=== PATIENT | male | born 1940 | race Caucasian/White ===

== ENCOUNTER 2019-11-04 07:55 | Inpatient (IN) ==
--- NOTE | 2019-10-11 16:02 | PAT Medication Instructions ---
Medication Instructions Date of Service October 11, 2019 Home Medications albuterol sulfate [Ventolin HFA] 2 puff INHALATION QID PRN atorvastatin 40 mg PO PM cyclobenzaprine 10 mg PO TID PRN fluticasone propion-salmeterol [Advair Diskus] 1 inh INHALATION BID hydrochlorothiazide 12.5 mg PO QAM montelukast [Singulair] 10 mg PO PM multivitamin 1 tab PO DAILY sertraline 100 mg PO QPM tamsulosin [Flomax] 0.4 cap PO QPM tolterodine [Detrol LA] 4 mg PO QPM aspirin 81 mg PO DAILY celecoxib [Celebrex] 200 mg PO QAM donepezil 5 mg PO QPM gabapentin 300 mg PO BID levothyroxine 175 mcg PO QAM lisinopril 5 mg PO QAM melatonin 5 mg PO HS omeprazole 40 mg PO QAM rizatriptan [Maxalt] 10 mg PO UD PRN sertraline 50 mg PO QPM ASK your surgeon for instructions celecoxib [Celebrex] 200 mg PO QAM ASK your prescriber and surgeon aspirin 81 mg PO DAILY DO NOT take the morning of surgery cyclobenzaprine 10 mg PO TID PRN hydrochlorothiazide 12.5 mg PO QAM multivitamin 1 tab PO DAILY lisinopril 5 mg PO QAM Take morning of surgery With a small sip of water, OTHERWISE NOTHING TO EAT OR DRINK AFTER MIDNIGHT: albuterol sulfate [Ventolin HFA] 2 puff INHALATION QID PRN (use if needed; please bring with you to hospital day of surgery if possible) fluticasone propion-salmeterol [Advair Diskus] 1 inh INHALATION BID gabapentin 300 mg PO BID levothyroxine 175 mcg PO QAM omeprazole 40 mg PO QAM rizatriptan [Maxalt] 10 mg PO UD PRN (if needed) Take evening before surgery albuterol sulfate [Ventolin HFA] 2 puff INHALATION QID PRN (if needed) atorvastatin 40 mg PO PM cyclobenzaprine 10 mg PO TID PRN (if needed) fluticasone propion-salmeterol [Advair Diskus] 1 inh INHALATION BID montelukast [Singulair] 10 mg PO PM sertraline 100 mg PO QPM tamsulosin [Flomax] 0.4 cap PO QPM tolterodine [Detrol LA] 4 mg PO QPM donepezil 5 mg PO QPM gabapentin 300 mg PO BID melatonin 5 mg PO HS rizatriptan [Maxalt] 10 mg PO UD PRN (if needed) sertraline 50 mg PO QPM Other Notes If you have any questions please call us at [phone] or [phone] or [phone] or [phone]
--- NOTE | 2019-10-12 15:32 | Anesthesiology Consultation ---
Date of Service October 12, 2019 Assessment & Plan (1) Encounter for pre-operative examination: Chart Review Chart Review: Pending: Refer to Additional Notes / Consult section (pending cardiac clearance and preop Covid testing ) and Patient seen in Pre Admission Testing Surgeon's office informed of abnormal urine Awaiting cardiac clearance- scheduled 10/18 (will need to await cardio recommendations on patient's episode of chest pain and hx of AAA). - Check BSG AM DOS Per PAT appt 10/12/19, pt resides in [facility]. Wears mask in public. Does grocery shop in [facility]. Educated patient to follow up with surgeon's office regarding Covid testing. Educated on importance of self quarantining, social distancing and wearing mask in public both for the patient and household contacts. Teaching & Discussion Pre-Anesthesia Teaching/Discussion Notes: Instructed NPO after midnight before surgery,except medications with 15 cc of water. Medication instructions provided according to the PAT guidelines. History Surgery Operation Date: 11/04/19 09:20 Proposed Procedures p L3-S1 Decompression Fusion, Spinal Cord Monitoring - Salvador Duckworth, Height/Weight Height: 5 ft 11 in Weight: 119.6 kg Allergies Allergy/AdvReac Type Severity Reaction Status Date / Time tramadol AdvReac Intermediate double Verified 10/08/19 13:46 vision Medications Home Medications Medication Instructions Recorded Confirmed Last Taken albuterol sulfate [Ventolin HFA] 2 puff INHALATION QID PRN 02/23/18 10/08/19 03/07/18 atorvastatin 40 mg PO PM 02/23/18 10/08/19 03/08/18 19:00 cyclobenzaprine 10 mg PO TID PRN 02/23/18 10/08/19 Unknown fluticasone propion-salmeterol 1 inh INHALATION BID 02/23/18 10/08/19 03/07/18 [Advair Diskus] hydrochlorothiazide 12.5 mg PO QAM 02/23/18 10/08/19 03/08/18 17:00 montelukast [Singulair] 10 mg PO PM 02/23/18 10/08/19 03/08/18 17:00 multivitamin 1 tab PO DAILY 02/23/18 03/09/18 03/08/18 17:00 sertraline 100 mg PO QPM 02/23/18 10/08/19 03/08/18 19:00 tamsulosin [Flomax] 0.4 cap PO QPM 02/23/18 10/08/19 03/08/18 17:00 tolterodine [Detrol LA] 4 mg PO QPM 02/23/18 10/08/19 03/08/18 19:00 aspirin 81 mg PO DAILY 10/08/19 10/08/19 Unknown celecoxib [Celebrex] 200 mg PO QAM 10/08/19 10/08/19 Unknown donepezil 5 mg PO QPM 10/08/19 10/08/19 Unknown gabapentin 300 mg PO BID 10/08/19 10/08/19 Unknown levothyroxine 175 mcg PO QAM 10/08/19 10/08/19 Unknown lisinopril 5 mg PO QAM 10/08/19 10/08/19 Unknown melatonin 5 mg PO HS 10/08/19 10/08/19 Unknown omeprazole 40 mg PO QAM 10/08/19 10/08/19 Unknown rizatriptan [Maxalt] 10 mg PO UD PRN 10/08/19 10/08/19 Unknown sertraline 50 mg PO QPM 10/08/19 10/08/19 Unknown Past Medical History Medical History (Updated 10/12/19 @ 16:14 by Princess Adam PA-C) AAA (abdominal aortic aneurysm) LAST CHECKED 2 YEARS AGO Allergic rhinitis Anxiety and depression Asthma Well controlled and stable BPH (benign prostatic hyperplasia) Does have to self cath at times Chronic back pain Diabetes mellitus, type II Diet controlled Hearing deficit History of kidney stones HLD (hyperlipidemia) HTN (hypertension) Hypothyroidism Migraine Non-occlusive coronary artery disease No stents Obesity MARA (obstructive sleep apnea) DOES NOT USE DEVICE Osteoarthritis Prostate cancer 2000 - seed placement, radiation Exercise / Class Metabolic Activity III < 4 Walking/Shop/Light housework (mild SOB but no chest pain with flat surface ambulation ) Past Family History Family History (Updated 03/09/18 @ 12:48 by Erin Bernal PA-C) Grandmother (Paternal) Family history of diabetes mellitus Other Coronary heart disease Past Surgical History Surgical History (Updated 10/12/19 @ 16:17 by Princess Adam PA-C) History of anesthesia reaction HEADACHE - cleared up after 30 minutes History of appendectomy History of arthroscopic knee surgery History of cardiac cath 11/2017 - mild luminal irregularities of LAD & L Cx, EF: 60% - [facility] [id number] [facility] History of colonoscopy History of inguinal hernia repair History of tooth extraction History of total hip arthroplasty LEFT/RT Past Anesthesia History No Hx of Anesthesia Complications (with exception with spinal headache with hip replacement- one episode ) and No Family Hx of Anesthesia Complications History of PONV No Hx of Motion Sickness and History of PONV (mild GI upset ) Social History Smoking Status: Never smoker Do You Dip or Chew Tobacco: No Hx Alcohol Use: Yes Alcohol type: beer alcohol intake frequency: holidays/special occasions only Hx Substance Use: No substance use type: does not use Review of Systems Chest pain - one episode - last week. Last minutes. Located to left side. No radiation. No associated nausea. Mild SOB (chronic). Seeing cardio prior to surgery Occ reflux- Omeprazole causes GI upset. Chronic wheezing. Patient denies shortness of breath at rest, cough, palpitations. No hx of seizures, stroke, ID. No hx of blood clots or blood transfusions Physical Exam Vital Signs VITALS BP 110/73 P 69 TEMP 98.1 SP02 95% RESP 16 Constitutional + obese; no acute distress ENMT Mouth: no TMJ clicking Thyromental Distance: > or= 3.5 Finger Breadths (4.0) Mallampati Class: III Capped top front teeth Missing molars Capped to molar Neck + limited neck extension (significant ) Respiratory normal respiratory effort; no respiratory distress Auscultation: lungs clear to auscultation bilaterally; no wheezes Cardiovascular Rate/Rhythm: regular rate and regular rhythm Heart Sounds: no murmur Vessels: no carotid bruit Heart sounds diminished throughout Musculoskeletal Spine: no pain with cervical ROM Neurologic moves all extremities Psychiatric Orientation: alert Testing Laboratory Results 10/12/19 16:04 10/12/19 16:04 PT 10.5 Seconds (9.0-12.0) 10/12/19 16:04 INR 1.0 (0.9-1.1) 10/12/19 16:04 APTT 26.5 Seconds (21.0-31.0) 10/12/19 16:04 Hemoglobin A1c 6.7 % (4.5-5.6) H 10/12/19 16:04 Urine Color Dark Yellow 10/12/19 16:04 Urine Appearance Cloudy (Clear) A 10/12/19 16:04 Urine pH 5.0 (4.5-7.5) 10/12/19 16:04 Ur Specific [place] 1.025 (1.000-1.030) 10/12/19 16:04 Urine Protein Trace (Negative) H 10/12/19 16:04 Urine Glucose (UA) Negative (Negative) 10/12/19 16:04 Urine Ketones Trace (Negative) H 10/12/19 16:04 Urine Nitrite Positive (Negative) A 10/12/19 16:04 Ur Leukocyte Esterase 2+ (Negative) H 10/12/19 16:04 Urine WBC (Auto) >30 /hpf (0-5) H 10/12/19 16:04 Urine RBC (Auto) 0-4 /hpf (0-4) 10/12/19 16:04 U Hyaline Cast (Auto) 5-10 /lpf (0-5) H 10/12/19 16:04 U Epithel Cells (Auto) 5-10 /lpf (0-5) H 10/12/19 16:04 Urine Bacteria (Auto) 4+ (Negative) H 10/12/19 16:04 Blood Type A Negative 10/12/19 16:04 Antibody Screen NEGATIVE 10/12/19 16:04 10/12/19 16:04 Urine Culture - Preliminary Urine,Clean Catch Escherichia coli Electrocardiogram Date: 10/12/19 SR with 1st degree AVB at 72 bpm. Left axis deviation. Chest X-Ray Date: 10/12/19 Findings: + NAD Echocardiogram Date: 07/27/15 EF: 50-55% LV Function: normal Impaired relaxation (grade I) diastolic dysfunction. There is trivial to mild tricuspid regurgitation. Moderately dilated ascending aorta (4.7cm). Mild aortic root dilation (3.9cm). Borderline global hypokinesis of the left ventricle. Right and left atrium mildly dilated. Trace mitral regurgitation. Stress Test Date: 07/27/15 Type: nuclear Resting EF: >70% Stress ECG changes are negative for ischemia by EKG criteria. Patient did experience SOB. Normal myocardial perfusion with diaphragmatic attenuation artifact. LV systolic function is hyperdynamic. There is a low risk/extent of ischemia.
[2019-10-12 16:28] LABS: Basophils # (auto) 0.04 K/uL (0-0.2); Basophils % (auto) 0.5 %; Eosinophils # (auto) 0.57 K/uL (0-0.5); Hematocrit (blood only) 40.6 % (42-52); Hemoglobin 13.5 g/dL (14.0-18.0); Immature Granulocytes # (auto) 0.02 K/uL (0.00-0.02); Immature Granulocytes % (auto) 0.2 %; Lymphocytes # (auto) 1.49 K/uL (1.2-3.4); Lymphocytes % (auto) 18.3 %; Mean Corpuscular Hemoglobin 29.6 pg (25-34); Mean Corpuscular Hgb Conc 33.3 g/dL (32-36); Mean Platelet Volume 8.9 fL (7.4-10.4); Monocytes # (auto) 0.89 K/uL (0.11-0.59); Monocytes % (auto) 10.9 %; Neutrophils # (auto) 5.12 K/uL (1.4-6.5); Neutrophils % (auto) 63.1 %; Platelet Count 212 K/uL (130-400); RDW Coefficient of Variation 14.5 % (11.5-14.5); RDW Standard Deviation 47.4 fL (36.4-46.3); Red Blood Count 4.56 M/uL (4.7-6.1); White Blood Count 8.13 K/uL (4.8-10.8)
[2019-10-12 16:34] LABS: Appearance Urine Cloudy (Clear); Bacteria Urine Automated 4+ (Negative); Bilirubin Urine Negative (Negative); Blood Urine 1+ (Negative); Color Urine Dark Yellow; Glucose Urine UA Negative (Negative); Ketones Urine Trace (Negative); Leukocyte Esterase Urine 2+ (Negative); Nitrite Urine Positive (Negative); Protein Urine Trace (Negative); Specific Gravity Urine 1.025 (1.000-1.030); Urobilinogen Urine Negative (Negative); WBC Urine Automated >30 /hpf (0-5)
[2019-10-12 16:35] LABS: BUN Creatinine Ratio 21.3 (10-20); Calcium 9.6 mg/dl (8.5-10.1); Est GFR (African American) 72.3; Est GFR (Non-African American) 62.4; Potassium 4.2 mmol/L (3.5-5.1)
[2019-10-12 16:39] LABS: Partial Thromboplastin Ratio 0.9; Partial Thromboplastin Time 26.5 Seconds (21.0-31.0); Prothrombin Time 10.5 Seconds (9.0-12.0)
--- NOTE | 2019-10-12 16:42 | XRay Report ---
TWO VIEW CHEST CLINICAL HISTORY: Preoperative examination. FINDINGS: PA and lateral chest radiographs are compared to study dated 02/25/2018. The heart is top no rmal for projection. The mediastinal contour is within normal limits. The lungs and pleural spaces a re clear. There is no pneumothorax. The skeletal structures are osteopenic. The bony thorax appears i ntact. Degenerative change is noted throughout the thoracic spine. IMPRESSION: No active disease in the chest. ACT 112: Negative or not required by law. Electronically signed by: Nader Omalley M.D. 10/12/2019 4:40 PM
[2019-10-12 17:23] LABS: Calcium Oxalate Crystals Urine Present (None Prsent)
[2019-10-12 17:25] LABS: RBC Urine Automated 0-4 /hpf (0-4)
[2019-10-13 05:52] LABS: Estimated Average Glucose 146 mg/dl; Hemoglobin A1C 6.7 % (4.5-5.6)
--- NOTE | 2019-10-13 12:06 | Electrocardiogram Report ---
Test Reason : Blood Pressure : / mmHG Vent. Rate : 072 BPM Atrial Rate : 072 BPM P-R Int : 212 ms QRS Dur : 096 ms QT Int : 436 ms P-R-T Axes : 075 -38 042 degrees QTc Int : 477 ms Sinus rhythm with 1st degree A-V block Left axis deviation Abnormal ECG When compared with ECG of 25-FEB-2018 13:18, No significant change was found Confirmed by Davion Waters ([id number]) on 10/13/2019 12:06:01 PM Referred By: Salvador Duckworth Confirmed By:Davion Waters
[~2019-11-04 07:55] MED LIST: ACETAMINOPHEN 500 MG TAB PO SCH; CEFAZOLIN 2000MG 2,000 MG/15 ML SYR IV SCH; CeleBREX 200 MG CAP PO SCH; GABAPENTIN 300 MG CAP PO SCH; LR 15ML/HR IV SCH
[2019-11-04] MEDS ORDERED: ATROPINE SULFATE 0.1 MG/ML 10ML SYR IV PRN (08:06)
[2019-11-04] MEDS ORDERED: fentaNYL citrate 100 MCG/2 ML VIAL IV PRN (08:06)
[2019-11-04] MEDS ORDERED: LABETALOL HCL IV 5 MG/ML 20ML IV PRN (08:06)
[2019-11-04] MEDS ORDERED: PHENYLEPHRINE 100MCG/ML 5ML SYR IV PRN (08:06)
[2019-11-04] MEDS ORDERED: ePHEDrine sulfate 50 MG/ML AMP IV PRN (08:06)
[2019-11-04] MEDS ORDERED: ONDANSETRON INJ 2 MG/ML 2 ML VIAL IV PRN ×2 (08:06→15:04)
[2019-11-04] MEDS ORDERED: HYDROmorphone INJ 1 MG/ML SYRINGE IV PRN ×2 (08:06→15:04)
[2019-11-04] MEDS ORDERED: MEPERIDINE HCL 25 MG/ML CARP/VIAL IV PRN (08:06)
[2019-11-04] MEDS ORDERED: fentaNYL citrate 100 MCG/2 ML VIAL ONE ×2 (09:21→12:34)
[2019-11-04] MEDS ORDERED: DEXAMETHASONE SOD INJ 4 MG/ML VIAL ONE (09:21)
[2019-11-04] MEDS ORDERED: ROCURONIUM BROMIDE 10 MG/ML 5 ML VIAL IV ONE ×3 (09:21→10:54)
[2019-11-04] MEDS ORDERED: LIDOCAINE HCL 2% 2 ML VIAL/AMP(20MG/ML) INFIL ONE (09:21)
[2019-11-04] MEDS ORDERED: ONDANSETRON INJ 2 MG/ML 2 ML VIAL ONE (09:21)
[2019-11-04] MEDS ORDERED: PROPOFOL IV EMULSION 10 MG/ML 20 ML VIAL IV ONE ×2 (09:21→13:24)
--- NOTE | 2019-11-04 09:49 | History & Physical Bridge Note ---
Date of Service November 04, 2019 History & Physical Bridge Note I have examined the patient, reviewed the History & Physical and in the interval since the performance of the History & Physical I have noted the following changes of clinical significance: no changes noted
--- NOTE | 2019-11-04 09:50 | History & Physical Report ---
Date of Service November 04, 2019 Assessment & Plan (1) Neurogenic claudication due to lumbar spinal stenosis: Admission and Anticipated Discharge Date Admission Date: L3-S1 decompression fusion History of Present Illness Chief Complaint: Back and bilateral leg pain Primary Care Provider: Patience Romero MD This is a 79-year-old male who presents with chronic persistent back and leg pain. After failing course of nonoperative care is here for surgical invention. Allergies Allergy/AdvReac Type Severity Reaction Status Date / Time tramadol AdvReac Intermediate double Verified 11/04/19 08:53 vision Home Medications Home Medications Medication Instructions Recorded Confirmed Type albuterol sulfate [Ventolin HFA] 2 puff INHALATION QID PRN 02/23/18 11/04/19 History atorvastatin 40 mg PO PM 02/23/18 11/04/19 History cyclobenzaprine 10 mg PO TID PRN 02/23/18 11/04/19 History fluticasone propion-salmeterol 1 inh INHALATION BID 02/23/18 11/04/19 History [Advair Diskus] hydrochlorothiazide 12.5 mg PO QAM 02/23/18 11/04/19 History montelukast [Singulair] 10 mg PO PM 02/23/18 11/04/19 History multivitamin 1 tab PO DAILY 02/23/18 11/04/19 History sertraline 100 mg PO QPM 02/23/18 11/04/19 History tamsulosin [Flomax] 0.4 cap PO QPM 02/23/18 11/04/19 History tolterodine [Detrol LA] 4 mg PO QPM 02/23/18 11/04/19 History aspirin 81 mg PO DAILY 10/08/19 11/04/19 History celecoxib [Celebrex] 200 mg PO QAM 10/08/19 11/04/19 History gabapentin 300 mg PO BID 10/08/19 11/04/19 History levothyroxine 175 mcg PO QAM 10/08/19 11/04/19 History lisinopril 5 mg PO QAM 10/08/19 11/04/19 History melatonin 5 mg PO HS 10/08/19 11/04/19 History omeprazole 40 mg PO QAM 10/08/19 11/04/19 History rizatriptan [Maxalt] 10 mg PO UD PRN 10/08/19 11/04/19 History sertraline 50 mg PO QPM 10/08/19 11/04/19 History Past Med/Surg History Medical History (Updated 11/04/19 @ 09:50 by Salvador Duckworth, DO) AAA (abdominal aortic aneurysm) LAST CHECKED 2 YEARS AGO Allergic rhinitis Anxiety and depression Asthma Well controlled and stable BPH (benign prostatic hyperplasia) Does have to self cath at times Chronic back pain Diabetes mellitus, type II Diet controlled Hearing deficit History of kidney stones HLD (hyperlipidemia) HTN (hypertension) Hypothyroidism Migraine Non-occlusive coronary artery disease No stents Obesity MARA (obstructive sleep apnea) DOES NOT USE DEVICE Osteoarthritis Prostate cancer 2000 - seed placement, radiation Surgical History History of anesthesia reaction HEADACHE - cleared up after 30 minutes History of appendectomy History of arthroscopic knee surgery History of cardiac cath 11/2017 - mild luminal irregularities of LAD & L Cx, EF: 60% - [facility] [id number] disease-[facility] History of colonoscopy History of inguinal hernia repair History of tooth extraction History of total hip arthroplasty LEFT/RT Family History (Updated 03/09/18 @ 12:48 by Erin Bernal PA-C) Grandmother (Paternal) Family history of diabetes mellitus Other Coronary heart disease Social History Smoking Status: Never smoker Second Hand Exposure: Yes; Do You Dip or Chew Tobacco: No; Tobacco Cessation Education Requested by Patient: No Hx Alcohol Use: Yes Alcohol type: beer Hx Substance Use: No Preferred Language: Brazilian Communication Ability: Effective Hand Candle Molder Required: No Beliefs That Will Affect Care: None marital status: Current Living Situation: Spouse Feels Safe at Home: Yes Safety Concerns: Feels Safe At This Time Physical Exam Physical Exam: Patient is alert and oriented neurologically intact. Heart regular rate and rhythm. Lungs clear to auscultation. Results & Data ([facility]) Vital Signs (Past 12 Hours) Vital Signs Temp Pulse Resp BP Pulse Ox 11/04/19 09:08 36.7 C 66 18 146/92 H 96
[2019-11-04] MEDS ORDERED: BACITRACIN INJ 50,000 UNIT VIAL ONE (10:01)
[2019-11-04] MEDS ORDERED: BUPIVACAINE/EPINEPHRINE 0.25% 1:200,000 30 ML VIAL ONE (10:01)
[2019-11-04] MEDS ORDERED: PHENYLEPHRINE 100MCG/ML 5ML SYR ONE ×2 (10:54→12:53)
[2019-11-04] MEDS ORDERED: ALBUMIN HUMAN 5% 12.5 GM/250 ML VIAL IV ONE ×2 (11:06→12:23)
[2019-11-04] MEDS ORDERED: FLOSEAL HEMOSTATIC MATRIX 10ML TOP ONE (11:20)
[2019-11-04 13:02] LABS: iSTAT Creatinine 0.8 mg/dl (0.6-1.3); iSTAT Hemoglobin 11.6 g/dl (14.0-18.0); iSTAT Ionized Calcium 1.23 mmol/l (1.12-1.32); iSTAT Potassium 4.9 mmol/L (3.3-5.0)
--- NOTE | 2019-11-04 13:23 | Operative Report ---
Post Operative Report Pre & Post Diagnosis Operation Date: 11/04/19 10:05 Pre-Op Diagnosis: Spinal Stenosis, Lumbar Region with Neurogenic Post-Op Diagnosis: Spinal Stenosis, Lumbar Region with Neurogenic I identified the patient and participated in the time-out.: Yes Procedure Operation Date: 11/04/19 10:05 Actual Procedures p L3-S1 Decompression and Fusion, Interbodies at L3-L4 and L5-S1, Spinal Cord Monitoring(Not Applicable) - Salvador Duckworth DO Surgeon Salvador Duckworth, Mellowing Machine Operator Coral Sheridan Estimated Blood Loss 1,300 Findings See Below The patient is 5 foot 11 inches tall weighing over 119 kg with a BMI in excess of 36. The patient's body habitus combined with an EBL in excess of 1300 cc. Significant technical difficulty. He required her deepest retractors and longus instruments in order to perform his procedure. He has had at least 50% increase to the operative time. Specimens None Indications This is a 79-year-old male who presents above-mentioned diagnosis after failing stents course of nonoperative care is here for the above-mentioned procedure. Description of Procedure Patient was met with identified informed consent obtained. Patient was then taken to the operative suite underwent an patient placed in a prone position the Hank table on top of the [place] frame. All bony prominences well-padded eyes inspected to ensure no external pressure placed upon the. This point the lumbar spine was prepped and draped in normal sterile fashion. Sharp dissection with the assistance of Bovie cautery was performed down to and exposing the lamina and transverse processes of L3-L4-L5 and sacral ala bilaterally. From caudal cephalad fashion complete laminectomy of L5 L4 L3 and L2 was performed including bilateral medial facetectomies and foraminotomies addressing severe spinal stenosis. Pedicle screws were then placed in L3-L4-L5 and S1 levels bilaterally with assistance of fluoroscopy and appropriate size erich placed. By way of a transforaminal approach on the right complete discectomy of L5-S1 was performed endplates curetted to subcortical any bone and a 13 x 26 mm peek cage filled with osteo-bone graft tapped in position. Then proceeded to L3-L4 and by way of a transforaminal approach on the left complete discectomy was performed endplates coated to subcortical bleeding bone and a 13 x 26 mm peek cage filled osteo-bone graft tapped in position. The rods were then locked into final position bilaterally. The transverse processes of L3-L4-L5 and sacral ala were then burred to subcortical bleeding bone. Infuse collagen sponge master graft local autograft and placed in the posterior lateral gutters. 15 round JULIA inserted. Incision was then closed with 1 Vicryl the fascia 2-0 Vicryl subcutaneously and 4 Monocryl for final skin closure. Steri-Strip sterile dressings placed. Patient will continue PACU stable addition. Please note spinal cord monitoring was utilized that the procedure no changes noted. Lastly Coral Sheridan was present at the entire surgery involved in patient positioning complex portions of the procedure and final skin closure. I attest to the content of the Intraoperative Record and any orders documented therein. Any exceptions are noted below.
[2019-11-04] MEDS ORDERED: GLYCOPYRROLATE 0.2 MG/ML VIAL ONE (13:26)
[2019-11-04] MEDS ORDERED: NEOSTIGMINE METHYLSULFATE 1 MG/ML 10ML VIAL ONE (13:26)
--- NOTE | 2019-11-04 13:46 | Fluoroscopy Report ---
FL lumbar spine 2-3V CLINICAL HISTORY: L3-S1 DECOMPRESSION AND FUSION COMPARISON STUDY: None FLUOROSCOPY TIME: 30 seconds NUMBER OF FLUOROSCOPIC IMAGES: 4 FINDINGS: Image intensifier utilization for lumbar laminectomy and fusion. IMPRESSION: Image intensifier support for a lumbar laminectomy and fusion. ACT 112: Negative or not required by law. The above report was generated using voice recognition software. It may contain grammatical, syntax or spelling errors. Electronically signed by: [place]re M.D. 11/04/2019 1:44 PM
[2019-11-04 14:02] LABS: Hematocrit (blood only) 33.4 % (42-52)
--- NOTE | 2019-11-04 14:30 | Anesthesiology Progress Note ---
Date of Service November 04, 2019 Anesthesia Post Procedure Vital Signs Vital Signs: Temp Pulse Pulse Resp BP BP Pulse Ox 11/04/19 14:20 36.7 C 74 16 100/53 L 95 11/04/19 14:10 72 16 101/66 97 11/04/19 14:00 73 16 104/62 98 11/04/19 13:50 73 16 107/65 98 11/04/19 13:41 37.0 C 82 16 131/75 98 11/04/19 09:08 36.7 C 66 18 146/92 H 96 Pain Intensity Lower Back: Pain Intensity: 2 Transfer of Care Handoff Completed per policy Notes Mental Status: alert / awake / arousable Patient Amnestic to Procedure: Yes Nausea / Vomiting: adequately controlled Pain: adequately controlled Airway Patency, RR, SpO2: stable & adequate BP & HR: stable & adequate Hydration State: stable & adequate Anesthetic Complications: no major complications apparent and Pt Satisfied with anesthetic care Notes: The patient is awake and comfortable in the PACU. His vital signs are stable. Postop BSG is 175 and hgb is 11.
[2019-11-04] MEDS ORDERED: LORazepam 0.5 MG/1 ML VIAL IV PRN (15:04)
[2019-11-04] MEDS ORDERED: MAGNESIUM HYDROXIDE SUSP 30 ML UDC PO PRN (15:04)
[2019-11-04] MEDS ORDERED: ALUMINUM/MAGNESIUM SUSP 30 ML UDC PO PRN (15:04)
[2019-11-04] MEDS ORDERED: ACETAMINOPHEN 1,000 MG/100 ML VIAL IV PRN (15:04)
[2019-11-04] MEDS ORDERED: LORazepam 0.5 MG TAB PO PRN (15:04)
[2019-11-04] MEDS ORDERED: FAMOTIDINE 20 MG TAB PO PRN (15:04)
[2019-11-04] MEDS ORDERED: PROMETHAZINE HCL 12.5 MG in SODIUM CHLORIDE 0.9% 50 ML IV PRN (15:04)
[2019-11-04] MEDS ORDERED: SOD PHOSPHATE/SOD BIPHOSPHATE ENEMA 132 ML BTL PR PRN (15:04)
[2019-11-04] MEDS ORDERED: ALBUTEROL HFA 8 GM INHALER INH PRN (15:04)
[2019-11-04] MEDS ORDERED: bisacodyL 10 MG SUPP PR PRN (15:04)
[2019-11-04] MEDS ORDERED: ACETAMINOPHEN 500 MG TAB PO PRN (15:04)
[2019-11-04] MEDS ORDERED: RIZATRIPTAN BENZOATE 10 MG TAB PO PRN (15:04)
[2019-11-04] MEDS ORDERED: ONDANSETRON 4 MG OD TAB PO PRN (15:04)
[2019-11-04] MEDS ORDERED: DO NOT ADMINISTER FLU VACCINE PRN (15:04)
[2019-11-04] MEDS ORDERED: NALOXONE HCL 0.4 MG/1 ML VIAL/CARP IV PRN (15:04)
[2019-11-04] MEDS ORDERED: DO NOT ADMINISTER PNEUMOCOCCAL VACCINE PRN (15:04)
[2019-11-04] MEDS ORDERED: HYDROmorphone INJ 0.5 MG/0.5 ML SYR IV PRN (15:04)
[2019-11-04] MEDS ORDERED: METOCLOPRAMIDE HCL INJ 5 MG/ML 2 ML VIAL IV PRN (15:04)
--- NOTE | 2019-11-04 16:00 | Hospitalist Consultation ---
Date of Consultation November 04, 2019 Assessment & Plan (1) S/P spinal surgery: POD 0 s/p L3-S1 Decompression and Fusion, Interbodies at L3-L4 and L5-S1, Spinal Cord Monitoring Cont per Ortho Spine instructions Doing well postoperatively Some walking today in the hallway PT/OT per Dr. Duckworth tolerating PO DVT prophylaxis per Ortho spine (2) Non-occlusive coronary artery disease: chronic, stable. No chest pain or breathing issues. No active concerns for active ischemia. cont home meds including lipitor 40mg PO daily, prinivil 5mg PO daily, Toprol XL 25mg dailyASA 81mg PO daily. (3) Hypothyroidism: Cont Synthroid per home dose. (4) Asthma: Chronic, no active flare symptoms today. No increased work of breathing or wheezing on exam today. Bronchodilators recommended if this changes. Cont Advair daily per home regimen. (5) Prostate cancer: (6) Anxiety and depression: Cont sertraline per home regimen. (7) MARA (obstructive sleep apnea): Refuses CPAP machine. (8) HTN (hypertension): At goal. Cont current therapy including lisinopril and Toprol XL (9) Diabetes mellitus, type II: Basa/Bolus Insulin per inpatient glycemic pharmacist. S/p dexamethasone intraoperatively. Currently BSG is at goal. (10) Migraine: Rizatriptan PRN migraine. (11) DVT prophylaxis: SCDs/Full Code Dispo-per PT, OT and Ortho Spine Thank you for this consultation! Cheyenne Kilpatrick [facility] Supervising Physician Co-Signing Physician Notes Agree with assessment and plan as stated above. Pt is comfortable and doing well post-operatively s/p back surgery this morning. DMII control with insulin while hospitalized. Glycemic pharmacist is guiding insulin titration. Pt on clear liquids. Physical exam as stated above. Clear lungs to auscultation. Benign heart exam, no peripheral edema. Back surgical dressing is c/d/i with +JULIA drain. Pain controlled with PO pain medications. Thank your for this consultation. Cheyenne Kilpatrick [facility] History of Present Illness Reason for Consultation: Postop medical management Attending Physician: Salvador Duckworth DO History of Present Illness This is a 79-year-old male with PMH of asthma, ascending aortic aneurysm, diet- controlled type 2 diabetes, hyperlipidemia, secondary hypertension, ulcerative prostatitis, mood disorder and other medical problems listed below who is POD#0 s/p L3-S1 Decompression and Fusion, Interbodies at L3-L4 and L5-S1 by Dr. Duckworth. Patient is feeling well postoperatively. Has minimal surgical site tenderness. Some chronic bilateral lower extremity paresthesias that were present prior to surgery and have not worsened. No pain in bilateral lower extremities. Tolerating clear liquid diet without issue. Denies any fever, chills, lightheadedness, visual changes, chest pain, palpitations, wheezing, nausea, vomiting, abdominal pain, dysuria, diarrhea or constipation. Follows with cardiology at [facility] who recently recommended discontinuing HCTZ and starting metoprolol, but patient did not want to make this change until after surgery. Confirmed he is still taking hydrochlorothiazide 12.5 mg daily and has not yet started metoprolol. Also monitored annually for a sending aortic aneurysm that has been unchanged for the past 3 years. Just underwent imaging recently but has not yet been told results. Allergies Allergy/AdvReac Type Severity Reaction Status Date / Time tramadol AdvReac Intermediate double Verified 11/04/19 08:53 vision Home Medications Home Medications Medication Instructions Recorded Confirmed Type albuterol sulfate [Ventolin HFA] 2 puff INHALATION QID PRN 02/23/18 11/04/19 History atorvastatin 40 mg PO PM 02/23/18 11/04/19 History cyclobenzaprine 10 mg PO TID PRN 02/23/18 11/04/19 History fluticasone propion-salmeterol 1 inh INHALATION BID 02/23/18 11/04/19 History [Advair Diskus] hydrochlorothiazide 12.5 mg PO QAM 02/23/18 11/04/19 History montelukast [Singulair] 10 mg PO PM 02/23/18 11/04/19 History multivitamin 1 tab PO DAILY 02/23/18 11/04/19 History sertraline 100 mg PO QPM 02/23/18 11/04/19 History tamsulosin [Flomax] 0.4 cap PO QPM 02/23/18 11/04/19 History tolterodine [Detrol LA] 4 mg PO QPM 02/23/18 11/04/19 History aspirin 81 mg PO DAILY 10/08/19 11/04/19 History celecoxib [Celebrex] 200 mg PO QAM 10/08/19 11/04/19 History gabapentin 300 mg PO BID 10/08/19 11/04/19 History levothyroxine 175 mcg PO QAM 10/08/19 11/04/19 History lisinopril 5 mg PO QAM 10/08/19 11/04/19 History melatonin 5 mg PO HS 10/08/19 11/04/19 History omeprazole 40 mg PO QAM 10/08/19 11/04/19 History rizatriptan [Maxalt] 10 mg PO UD PRN 10/08/19 11/04/19 History Patient History Medical History (Updated 11/04/19 @ 22:51 by Cheyenne Kilpatrick DO) AAA (abdominal aortic aneurysm) LAST CHECKED 2 YEARS AGO Allergic rhinitis Anxiety and depression Asthma Well controlled and stable BPH (benign prostatic hyperplasia) Does have to self cath at times Chronic back pain Diabetes mellitus, type II Diet controlled Hearing deficit History of kidney stones HLD (hyperlipidemia) HTN (hypertension) Hypothyroidism Migraine Non-occlusive coronary artery disease No stents Obesity MARA (obstructive sleep apnea) DOES NOT USE DEVICE Osteoarthritis Prostate cancer 2000 - seed placement, radiation Surgical History (Updated 11/04/19 @ 16:16 by Maddie Thorpe PA-C) History of anesthesia reaction HEADACHE - cleared up after 30 minutes History of appendectomy History of cardiac cath 11/2017 - mild luminal irregularities of LAD & L Cx, EF: 60% - [facility] [employer] [id number] disease-[facility] History of colonoscopy History of tooth extraction History of total hip arthroplasty LEFT/RT Status post total replacement of right hip Family History Grandmother (Paternal) Family history of diabetes mellitus Other Coronary heart disease Social History Smoking Status: Never smoker Second Hand Exposure: Yes; Do You Dip or Chew Tobacco: No; Tobacco Cessation Education Requested by Patient: No Hx Alcohol Use: Yes Alcohol type: beer Hx Substance Use: No Preferred Language: Tajik Communication Ability: Effective Flight Radio Operator Required: No Beliefs That Will Affect Care: None marital status: Current Living Situation: Spouse Feels Safe at Home: Yes Safety Concerns: Feels Safe At This Time Review of Systems Review of Systems: At least ten systems reviewed and negative except as noted in the HPI. Physical Exam Physical Exam: General Appearance: WD/WN, vitals as above, NAD, sitting up in bed, pleasant, conversing easily Head: normocephalic, atraumatic Eyes: normal inspection, PERRL, conjunctivae normal, anicteric sclerae ENT: external ear and nose normal, oropharynx normal Neck: trachea midline, no thyromegaly normal visual inspection Respiratory: normal respiratory effort, lungs clear to auscultation, no wheeze, rales, rhonchi Cardiovascular: regular rate, rhythm, no murmur appreciated, normal peripheral pulses. Vessels: no JVD Abdomen/GI: normal bowel sounds, soft, nontender, no hepatosplenomegaly Extremities/Musculoskeletal: + Lumbosacral dressing clean, dry, intact. JULIA drain visualized. No cyanosis or clubbing, extremities motor strength 5/5 Neurologic: PERRL, EOMI, CN's II-XI intact bilaterally and moves all extre mities Psychiatric: A+Ox3, euthymic affect Skin: no rashes, normal color, warm/dry Results & Data Results & Data ([facility]) Vital Signs (Past 12 Hours) Vital Signs Temp Pulse Pulse Resp BP BP Pulse Ox 11/04/19 15:16 36.7 C 73 16 105/63 96 11/04/19 14:40 37.1 C 73 16 101/57 L 94 11/04/19 14:30 67 16 107/66 95 11/04/19 14:20 36.7 C 74 16 100/53 L 95 11/04/19 14:10 72 16 101/66 97 11/04/19 14:00 73 16 104/62 98 11/04/19 13:50 73 16 107/65 98 11/04/19 13:41 37.0 C 82 16 131/75 98 11/04/19 09:08 36.7 C 66 18 146/92 H 96 Laboratory Results Short CBC 11/04/19 Range/Units 13:49 Hgb 11.0 L (14.0-18.0) g/dL Hct 33.4 L (42-52) %
[2019-11-04] MEDS: SODIUM CHLORIDE 0.9% 1000ML 1,000 ML IV SCH ×2 (16:19→21:19)
[2019-11-04] MEDS: CEFAZOLIN 2000MG 2,000 MG/15 ML SYR IV SCH (17:38)
[2019-11-04] MEDS ORDERED: GLUCAGON FOR INJ 1 MG VIAL SQ PRN (18:05)
[2019-11-04] MEDS ORDERED: DEXTROSE 50% 50 ML SYRINGE IV PRN (18:05)
[2019-11-04] MEDS ORDERED: GLUCOSE 40% GEL 15 GM TUBE PO PRN (18:05)
[2019-11-04] MEDS ORDERED: GLUCOSE 10 TABS/TUBE PO PRN (18:05)
[2019-11-04] MEDS ORDERED: CARBOHYDRATES FOR HYPOGLYCEMIA PO PRN (18:05)
[2019-11-04] MEDS ORDERED: PHARMACY GLYCEMIC MGMT CONSULT SCH (18:52)
[2019-11-04] MEDS ORDERED: INSULIN GLARGINE SOLOSTAR 100 UNITS/ML 3 ML PEN SC ONE (19:00)
[2019-11-04] MEDS: INSULIN ASPART 100 UNITS/ML 3 ML PEN SC SCH ×2 (19:23→21:45)
[2019-11-04] MEDS: TAMSULOSIN HCL 0.4 MG CAP PO SCH (20:27)
[2019-11-04] MEDS: TOLTERODINE TARTRATE LA 4 MG CAPCR PO SCH (20:27)
[2019-11-04] MEDS: GABAPENTIN 300 MG CAP PO SCH (20:28)
[2019-11-04] MEDS: DOCUSATE SODIUM/SENNA 50/8.6MG TAB PO SCH (20:28)
[2019-11-04] MEDS: MONTELUKAST SODIUM 10 MG TABLET PO SCH (20:28)
[2019-11-04] MEDS: ATORVASTATIN 40 MG TAB PO SCH (20:28)
[2019-11-04] MEDS: SERTRALINE HCL 100 MG TABLET PO SCH (20:28)
[2019-11-04] MEDS: SERTRALINE HCL 50 MG TABLET PO SCH (20:29)
[2019-11-04] MEDS: MELATONIN 3 MG TAB PO SCH (21:45)
[2019-11-05] MEDS ORDERED: INSULIN ASPART 100 UNITS/ML 3 ML PEN SC SCH ×2 (02:00)
[2019-11-05] MEDS: CEFAZOLIN 2000MG 2,000 MG/15 ML SYR IV SCH (02:11)
[2019-11-05 05:47] LABS: Immature Granulocytes # (auto) 0.02 K/uL (0.00-0.02); Immature Granulocytes % (auto) 0.2 %; Lymphocytes # (auto) 1.24 K/uL (1.2-3.4); Lymphocytes % (auto) 13.2 %; Mean Corpuscular Hemoglobin 29.4 pg (25-34); Mean Corpuscular Hgb Conc 33.3 g/dL (32-36); Mean Corpuscular Volume 88.2 fL (80-100); Mean Platelet Volume 8.6 fL (7.4-10.4); Monocytes # (auto) 0.79 K/uL (0.11-0.59); Monocytes % (auto) 8.4 %; Neutrophils # (auto) 7.31 K/uL (1.4-6.5); Neutrophils % (auto) 78.2 %; Platelet Count 198 K/uL (130-400); RDW Coefficient of Variation 14.8 % (11.5-14.5); RDW Standard Deviation 47.7 fL (36.4-46.3); Red Blood Count 3.06 M/uL (4.7-6.1); White Blood Count 9.36 K/uL (4.8-10.8)
[2019-11-05] MEDS: LEVOTHYROXINE SODIUM 175 MCG TABLET PO SCH (06:03)
[2019-11-05] MEDS: POLYETHYLENE (MIRALAX) 17 GM PACK PO SCH ×3 (06:03→17:33)
[2019-11-05 06:12] LABS: BUN Creatinine Ratio 17.3 (10-20); Calcium 7.8 mg/dl (8.5-10.1); Creatinine Clr Calc Pharmacy 78.3 ml/min; Est GFR (African American) 79.9; Est GFR (Non-African American) 68.9; Potassium 4.2 mmol/L (3.5-5.1)
--- NOTE | 2019-11-05 07:36 | Anesthesiology Progress Note ---
Date of Service November 05, 2019 Anesthesia Post Procedure Vital Signs Vital Signs: Temp Pulse Pulse Resp BP BP Pulse Ox 11/05/19 07:09 36.5 C 72 17 111/66 94 11/05/19 03:56 36.9 C 76 18 112/67 94 11/04/19 23:35 36.8 C 74 20 111/67 94 11/04/19 22:37 75 16 117/70 94 11/04/19 19:03 36.4 C L 84 18 93/55 L 94 11/04/19 17:34 36.5 C 83 16 110/65 96 11/04/19 16:42 36.6 C 81 16 94/58 L 94 11/04/19 16:02 36.8 C 80 16 91/53 L 94 11/04/19 15:16 36.7 C 73 16 105/63 96 11/04/19 14:40 37.1 C 73 16 101/57 L 94 11/04/19 14:30 67 16 107/66 95 11/04/19 14:20 36.7 C 74 16 100/53 L 95 11/04/19 14:10 72 16 101/66 97 11/04/19 14:00 73 16 104/62 98 11/04/19 13:50 73 16 107/65 98 11/04/19 13:41 37.0 C 82 16 131/75 98 11/04/19 09:08 36.7 C 66 18 146/92 H 96 Pain Intensity Lower Back: Pain Intensity: 2 Notes Mental Status: alert / awake / arousable and participated in evaluation Patient Amnestic to Procedure: Yes Nausea / Vomiting: adequately controlled Pain: adequately controlled Airway Patency, RR, SpO2: stable & adequate BP & HR: stable & adequate Hydration State: stable & adequate Anesthetic Complications: no major complications apparent and Pt Satisfied with anesthetic care
[2019-11-05] MEDS: OXYCODONE HCL IR 5 MG TAB (IMMEDIATE RELEASE) PO PRN ×2 (07:38→12:32)
--- NOTE | 2019-11-05 08:43 | Hospitalist Progress Note ---
Date of Service November 05, 2019 Assessment & Plan (1) S/P spinal surgery: POD 1 s/p L3-S1 Decompression and Fusion, Interbodies at L3-L4 and L5-S1, Spinal Cord Monitoring EBL: 1,300ml JULIA drain 610ml Pain/wound management per Ortho Activity and therapy as directed by Ortho Encourage incentive spirometry Funes catheter still in place, removed per Ortho (2) Anemia: EBL: 1,300ml JULIA drain 610ml Pre op H/H 13.5 and 40.6 H/H today 9.0 and 27.0 acute blood loss anemia transfuse hgb < 8.0 repeat h/h @ 6pm (3) Non-occlusive coronary artery disease: chronic, stable. continue home meds including statin, ASA LLUVIA on hold given lower BP/anemia Follows [facility] Cardiology - at pre op visit was advised to D/C HCTZ and encouraged to start Toprol XL. He stopped HCTZ, but deferred starting Toprol XL until his post op visit (4) Hypothyroidism: Cont Synthroid per home dose (5) Asthma: no acute exac Cont Advair daily per home regimen (6) Prostate cancer: S/P brachytherapy Follows Dr. Caballero urology of [facility] shiva and flobird (7) Anxiety and depression: mood stable, Cont sertraline (8) MARA (obstructive sleep apnea): Refuses CPAP machine. (9) HTN (hypertension): BP on low side this morning lisinopril on hold HCTZ stopped at pre op cardiology appt and recommended he start Toprol XL 25mg but he has not yet started this (10) Diabetes mellitus, type II: Continue current insulin regimen glycemic pharmacy on board, appreciate their management (11) Migraine: No VANEGAS Rizatriptan PRN migraine (12) DVT prophylaxis: SCDs/Full Code Dispo-per PT, OT and Ortho Spine Pt was seen and examined in collaboration with Dr. Uribe, please see addendum Thank you for this consultation. We will follow the patient with you during their hospital stay. You can reach a member of the [facility] Hospitalist Team 14/10 via pager @ [phone]. Admission and Anticipated Discharge Date Admission Date: November 04, 2019 Supervising Physician Co-Signing Physician Notes Attending Addendum: care coordinated with JAZMINE Vanegas please refer to her notes for full details, I agree with her notes patient seen and examined, records reviewed by myself as well on exam, patient seen resting in bedside chair, comfortable, not in distress, in good spirits States he had increased back pain after walking today but otherwise feels fine Denies dizziness, shortness of breath, chest pain, palpitations no other symptoms VS noted and reviewed oriented x3, not in distress, speaks in sentences with no effort nor accessory muscle use normal rate, regular rhythm, no murmurs clear breath sounds bilaterally non distended, soft, nontender no bipedal edema, erythema, warmth no neuro deficits WBC 9.3 Hg 9.0 Crea 1.04 ASSESSMENT AND PLAN S/P L3-S1 DECOMPRESSION AND FUSION stable overall monitor Hg, repeat at 1800 transfuse for Hg < 7 ACUTE BLOOD LOSS ANEMIA management as above CAD, HYPERTENSION hold Lisinopril to prevent hypotension other diagnoses and plan of care as per JAZMINE Uribe MD Subjective Patient was seen and examined in room 304. POD #[address] lumbar spinal surgery by Dr. Duckworth. Overall he feels well this morning, but I have not got out of bed yet." "I do have hunger pains." Denies f/c/s, chest pain, sob, n/v/d, abdominal pain, dizziness, lightheaded. +Funes cath still in pass. No flatus yet. Offers no acute concerns. Complains of back stiffness, but no mason pain lying in bed. Review of Systems Review of Systems: All systems reviewed & are unremarkable except as noted in HPI & below Physical Exam Physical Exam: Gen: WD/WN, M, NAD, A&O x3 HEENT: Normocephalic, atraumatic, conjunctivae moist, sclerae anicteric, mucous membranes moist. Lung: Clear to Auscultation bilaterally, no wheezes/rales/rhonchi Heart: Regular rate, regular rhythm, no murmurs, rubs, or gallops Abdomen: Soft, NT, ND +BS x 4 Extremities: No edema, lumbar dressing CDI, JULIA drain in tact Skin: Warm, no rash, negative turgor. : funes in place draining clear yellow urine Results & Data Results & Data ([facility]) Vital Signs (Past 12 Hours) Vital Signs Temp Pulse Resp BP Pulse Ox 11/05/19 07:09 36.5 C 72 17 111/66 94 11/05/19 03:56 36.9 C 76 18 112/67 94 11/04/19 23:35 36.8 C 74 20 111/67 94 11/04/19 22:37 75 16 117/70 94 Laboratory Results Short CBC 11/04/19 11/05/19 Range/Units 13:49 05:14 WBC 9.36 (4.8-10.8) K/uL Hgb 11.0 L 9.0 L (14.0-18.0) g/dL Hct 33.4 L 27.0 L (42-52) % Plt Count 198 (130-400) K/uL BMP 11/05/19 05:14 Sodium 141 Potassium 4.2 Chloride 110 H Carbon Dioxide 24 BUN 18 Creatinine 1.04 Glucose 151 H Calcium 7.8 L Medications Administered Atorvastatin Calcium (Atorvastatin 40 Mg Tab) 40 mg PO PM [facility] Stop: 12/04/19 20:59 Last Admin: 11/04/19 20:28 Dose: 40 mg Documented by: [id number] Gabapentin (Gabapentin 300 Mg Cap) 300 mg PO BID JACKELINE Stop: 12/04/19 20:59 Last Admin: 11/04/19 20:28 Dose: 300 mg Documented by: [id number] Insulin Aspart (Insulin Aspart 100 Units/Ml 3 Ml Pen) 0 units SC [facility]; Protocol Stop: 12/04/19 18:59 Last Admin: 11/04/19 21:45 Dose: 1 units Documented by: [id number] Cosigned by: [id number] Admin: 11/04/19 19:23 Dose: 17 units Documented by: [id number] Cosigned by: [id number] Levothyroxine Sodium (Levothyroxine Sodium 175 Mcg Tablet) 175 mcg PO DAILYBB [facility] Stop: 12/05/19 06:29 Last Admin: 11/05/19 06:03 Dose: 175 mcg Documented by: [id number] Lorazepam (Lorazepam 0.5 Mg Tab) 0.5 mg PO Q8H PRN PRN Reason: Sedation/Anxiety Stop: 12/04/19 15:03 Last Admin: 11/05/19 02:11 Dose: 0.5 mg Documented by: [id number] Melatonin (Melatonin 3 Mg Tab) 6 mg PO HS [facility] Stop: 12/04/19 20:59 Last Admin: 11/04/19 21:45 Dose: 6 mg Documented by: [id number] Montelukast Sodium (Montelukast Sodium 10 Mg Tablet) 10 mg PO PM JACKELINE Stop: 12/04/19 20:59 Last Admin: 11/04/19 20:28 Dose: 10 mg Documented by: [id number] Oxycodone HCl (Oxycodone Hcl Ir 5 Mg Tab (Immediate Release)) 5 - 10 mg PO Q4H PRN PRN Reason: Moderate-Severe Pain & Pre PT Stop: 11/18/19 15:03 Last Admin: 11/05/19 07:38 Dose: 5 mg Documented by: [id number] Polyethylene Glycol (Polyethylene (Miralax) 17 Gm Pack) 17 gm PO Q6 JACKELINE Stop: 12/05/19 05:59 Last Admin: 11/05/19 06:03 Dose: 17 gm Documented by: [id number] Senna/Docusate Sodium (Docusate Sodium/Senna 50/8.6mg Tab) 2 tab PO HS JACKELINE Stop: 12/04/19 20:59 Last Admin: 11/04/19 20:28 Dose: 2 tab Documented by: [id number] Sertraline HCl (Sertraline Hcl 50 Mg Tablet) 50 mg PO QPM JACKELINE Stop: 12/04/19 20:59 Last Admin: 11/04/19 20:29 Dose: 50 mg Documented by: [id number] Sertraline HCl (Sertraline Hcl 100 Mg Tablet) 100 mg PO QPM JACKELINE Stop: 12/04/19 20:59 Last Admin: 11/04/19 20:28 Dose: 100 mg Documented by: [id number] Tamsulosin HCl (Tamsulosin Hcl 0.4 Mg Cap) 0.4 mg PO QPM JACKELINE Stop: 12/04/19 20:59 Last Admin: 11/04/19 20:27 Dose: 0.4 mg Documented by: [id number] Tolterodine Tartrate (Tolterodine Tartrate La 4 Mg Capcr) 4 mg PO QPM JACKELINE Stop: 12/04/19 20:59 Last Admin: 11/04/19 20:27 Dose: 4 mg Documented by: [id number] Discontinued Medications Acetaminophen (Acetaminophen 500 Mg Tab) 1,000 mg PO PREOP JACKELINE Stop: 11/04/19 18:00 Last Admin: 11/04/19 09:35 Dose: 1,000 mg Documented by: [id number] Bacitracin (Bacitracin Inj 50,000 Unit Vial) Confirm Administered Dose 50,000 units .ROUTE .[facility] ONE Stop: 11/04/19 10:02 Last Admin: 11/04/19 11:22 Dose: 50,000 units Documented by: [id number] Bupivacaine HCl/Epinephrine Bitart (Bupivacaine/Epinephrine 0.25% 1:200,000 30 Ml Vial) Confirm Administered Dose 30 ml .ROUTE .[facility]-MED ONE Stop: 11/04/19 10:02 Last Admin: 11/04/19 11:23 Dose: 30 ml Documented by: [id number] Celecoxib (Celebrex 200 Mg Cap) 200 mg PO PREOP JACKELINE Stop: 11/04/19 18:00 Last Admin: 11/04/19 09:36 Dose: 200 mg Documented by: [id number] Gabapentin (Gabapentin 300 Mg Cap) 300 mg PO PREOP JACKELINE Stop: 11/04/19 18:00 Last Admin: 11/04/19 09:35 Dose: 300 mg Documented by: [id number] Lactated Ringer's (Lr) 1,000 mls @ 15 mls/hr IV .Q24H JACKELINE Stop: 11/05/19 05:59 Last Infusion: 11/04/19 10:15 Dose: 0 mls/hr Documented by: [id number] Admin: 11/04/19 09:00 Dose: 15 mls/hr Documented by: [id number] Cefazolin Sodium (Ancef 2000mg) 2,000 mg in 15 mls @ 3.75 mls/min IV PREOP JACKELINE; Protocol Stop: 11/04/19 18:00 Last Admin: 11/04/19 10:15 Dose: 3.75 mls/min Documented by: [id number] Cefazolin Sodium (Ancef 2000mg) 2,000 mg in 15 mls @ 3.75 mls/min IV Q8H JACKELINE; Protocol Stop: 11/05/19 02:03 Last Admin: 11/05/19 02:11 Dose: 3.75 mls/min Documented by: [id number] Admin: 11/04/19 17:38 Dose: 3.75 mls/min Documented by: [id number] Sodium Chloride (Nss 1000ml) 1,000 mls @ 150 mls/hr IV .Q6H40M JACKELINE Stop: 12/04/19 15:03 Last Infusion: 11/05/19 04:06 Dose: 0 mls/hr Documented by: [id number] Admin: 11/04/19 21:19 Dose: 150 mls/hr Documented by: [id number] Infusion: 11/04/19 21:19 Dose: 150 mls/hr Documented by: [id number] Admin: 11/04/19 16:19 Dose: 150 mls/hr Documented by: [id number] Insulin Aspart (Insulin Aspart 100 Units/Ml 3 Ml Pen) 0 units SC 0200 [facility]; Protocol Stop: 11/05/19 02:01 Last Admin: 11/05/19 02:15 Dose: 3 units Documented by: [id number] Cosigned by: [id number] Insulin Glargine (Insulin Glargine Solostar 100 Units/Ml 3 Ml Pen) 30 units SC ONE ONE Stop: 11/04/19 19:01 Last Admin: 11/04/19 19:24 Dose: 30 units Documented by: [id number] Cosigned by: [id number] Miscellaneous ( Floseal Hemostatic Matrix 10ml) 25 ml TOP ONCE ONE Stop: 11/04/19 11:21 Last Admin: 11/04/19 13:31 Dose: 35 ml Documented by: [id number]
[2019-11-05] MEDS: ASPIRIN 81 MG ECTAB PO SCH (08:44)
[2019-11-05] MEDS: MULTIVITAMIN TAB PO SCH (08:45)
[2019-11-05] MEDS: PANTOprazole 40 MG TAB PO SCH (08:45)
[2019-11-05] MEDS: GABAPENTIN 300 MG CAP PO SCH ×2 (08:45→21:00)
[2019-11-05] MEDS: FLUTICASONE/VILANTEROL 200/25MCG 14 PUFFS/INHALER INH SCH (08:46)
[2019-11-05] MEDS: INSULIN ASPART 100 UNITS/ML 3 ML PEN SC SCH ×4 (08:48→21:56)
[2019-11-05] MEDS ORDERED: lisinopriL 5 MG TAB PO SCH (09:00)
[2019-11-05] MEDS ORDERED: hydroCHLOROthiazide 25 MG TAB PO SCH (09:00)
--- NOTE | 2019-11-05 10:13 | Orthopedic Progress Note ---
Date of Service November 05, 2019 Assessment & Plan (1) S/P spinal surgery: Admission and Anticipated Discharge Date Admission Date: November 04, 2019 This time will initiate physical therapy monitor his JULIA output and Subjective Patient's back pain is controlled leg symptoms markedly improved. Physical Exam Physical Exam: Patient is comfortable is good strength testing. Results & Data [facility]) Vital Signs (Past 12 Hours) Vital Signs Temp Pulse Resp BP Pulse Ox 11/05/19 07:09 36.5 C 72 17 111/66 94 11/05/19 03:56 36.9 C 76 18 112/67 94 11/04/19 23:35 36.8 C 74 20 111/67 94 11/04/19 22:37 75 16 117/70 94
--- NOTE | 2019-11-05 14:27 | Pharmacy Report ---
Glycemic Control Consultation - Date of Service November 05, 2019 - Scope Scope: Glycemic Pharmacist consulted for glycemic control and to write orders per [facility] inpatient glycemic control protocol. - Objective Weight: 119.6 kg Accuchecks BSG (last 24hrs): 11/04/19 11/04/19 11/04/19 17:04 19:07 21:20 Glucose POC Glucose 293 H 247 H 153 H 11/05/19 11/05/19 11/05/19 02:11 05:14 08:02 Glucose 151 H POC Glucose 145 H 130 H 11/05/19 12:11 Glucose POC Glucose 114 H Laboratory Data (last 24hrs): 11/05/19 05:14 Potassium 4.2 Carbon Dioxide 24 Anion Gap 7.0 Creatinine 1.04 Est Cr Clr Drug Dosing 78.3 HbA1c: Hemoglobin A1c 6.7 % (4.5-5.6) H 10/12/19 16:04 - Recent Pertinent Medications Outpatient Anti-diabetic Regimen: * diet-controlled * A1c = 6.7 % 10/12/19 The patient is currently receiving: * Basal insulin: Lantus 30 units SQ x 1 yesterday evening * Correctional Insulin: Novolog Correction per scale ACHS Goal Range: Low 110 mg/dL - High 140 mg/dL Correction Factor: 30 mg/dL/unit * Prandial insulin: Per carb ratio of 1 unit per 12 grams CHO consumed Risk Factors for Insulin Resistance: * Steroids: dexamethasone 8 mg IV during surgery * Recent Surgery: POD 1 for spinal surgery * Diet: T2DM - Assessment & Plan Assessment & Plan: ASSESSMENT: * Mr Hameed is a 79 y/o M with a PMH of T2DM diet-controlled who presents for back surgery. * Patient received 8 mg of dexamethasone IV intraop and is now scheduled to receive IV dexamethasone 8 mg daily starting tomorrow. * On POD 0, patient received 30 units of Lantus. BSGs were 420-160-108-153 mg/dL. At 0200 BSG wa 145 mg/dL. Fasting this morning was 130 mg/dL. * Since dexamethasone is starting tomorrow, will give Lantus 20 units with that dose. Concerned with giving a full 30 units since patient appears to be insulin sensitive. * For Novolog, selected between weight-based stress of 2 and 3 for now. Will tighten for tomorrow when dexamethasone starts. PLAN FOR INPATIENT GLYCEMIC CONTROL: * Basal insulin * Lantus 20 units SQ daily with IV dexamethasone * Bolus insulin * NovoLog per scale ACHS or Q6hrs while NPO * Goal Range: Low 110 mg/dL - High 140 mg/dL * Correction Factor: 25 mg/dL/unit * Nutritional / Prandial insulin per carb ratio of 1 unit per 10 grams CHO consumed (change to 8 tomorrow) Recommendations for discharge * Patient's HbA1C reasonably controlled for his age and comorbidities * goal HbA1C < 7% * currently HbA1C = 6.7% * Continue current diet control lifestyle Thank you.
[2019-11-05 18:27] LABS: Hematocrit (blood only) 27.6 % (42-52); Hemoglobin 9.2 g/dL (14.0-18.0)
[2019-11-05] MEDS: TOLTERODINE TARTRATE LA 4 MG CAPCR PO SCH (20:59)
[2019-11-05] MEDS: DOCUSATE SODIUM/SENNA 50/8.6MG TAB PO SCH (20:59)
[2019-11-05] MEDS: TAMSULOSIN HCL 0.4 MG CAP PO SCH (20:59)
[2019-11-05] MEDS: ATORVASTATIN 40 MG TAB PO SCH (21:00)
[2019-11-05] MEDS: MELATONIN 3 MG TAB PO SCH (21:00)
[2019-11-05] MEDS: MONTELUKAST SODIUM 10 MG TABLET PO SCH (21:00)
[2019-11-05] MEDS: SERTRALINE HCL 100 MG TABLET PO SCH (21:01)
[2019-11-05] MEDS: SERTRALINE HCL 50 MG TABLET PO SCH (21:01)
[2019-11-06] MEDS: POLYETHYLENE (MIRALAX) 17 GM PACK PO SCH ×5 (00:01→21:51)
[2019-11-06 05:57] LABS: Hematocrit (blood only) 27.1 % (42-52)
[2019-11-06] MEDS: LEVOTHYROXINE SODIUM 175 MCG TABLET PO SCH (06:14)
[2019-11-06] MEDS: ASPIRIN 81 MG ECTAB PO SCH (08:19)
[2019-11-06] MEDS: MULTIVITAMIN TAB PO SCH (08:20)
[2019-11-06] MEDS: GABAPENTIN 300 MG CAP PO SCH ×2 (08:21→21:41)
[2019-11-06] MEDS: dexAMETHasone 8 MG in SYRINGE 0 ML IV SCH (08:22)
[2019-11-06] MEDS: PANTOprazole 40 MG TAB PO SCH (08:22)
[2019-11-06] MEDS: FLUTICASONE/VILANTEROL 200/25MCG 14 PUFFS/INHALER INH SCH (08:27)
[2019-11-06] MEDS: INSULIN GLARGINE SOLOSTAR 100 UNITS/ML 3 ML PEN SC SCH (08:28)
[2019-11-06] MEDS: INSULIN ASPART 100 UNITS/ML 3 ML PEN SC SCH ×4 (08:30→21:48)
[2019-11-06] MEDS ORDERED: INSULIN GLARGINE SOLOSTAR 100 UNITS/ML 3 ML PEN SC SCH (09:00)
[2019-11-06] MEDS: OXYCODONE HCL IR 5 MG TAB (IMMEDIATE RELEASE) PO PRN ×2 (09:29)
--- NOTE | 2019-11-06 09:50 | Orthopedic Progress Note ---
Date of Service November 06, 2019 Assessment & Plan (1) S/P spinal surgery: Admission and Anticipated Discharge Date Admission Date: November 04, 2019 At this time we will continue physical therapy monitor his JULIA output anticipate discharge home Friday Subjective Back pain controlled leg symptoms markedly improved. Physical Exam Physical Exam: Patient is sitting up in bed. Is good strength testing. Appears comfortable. Results & Data ([facility]) Vital Signs (Past 12 Hours) Vital Signs Temp Pulse Resp BP Pulse Ox 11/06/19 07:53 36.9 C 71 18 122/68 90 11/05/19 22:57 37.5 C 76 16 114/68 92
--- NOTE | 2019-11-06 18:34 | Hospitalist Progress Note ---
Date of Service November 06, 2019 Assessment & Plan (1) S/P spinal surgery: POD 2 s/p L3-S1 Decompression and Fusion, Interbodies at L3-L4 and L5-S1, Spinal Cord Monitoring EBL: 1,300ml JULIA drain 610ml Stable overall Hemoglobin stable at 9 Transfuse as needed for hemoglobin below 7 DVT prophylaxis per Ortho service (2) Anemia: Management per #1 (3) Non-occlusive coronary artery disease: chronic, stable. Continue aspirin Hold lisinopril to prevent hypotension Follows [facility] Cardiology - at pre op visit was advised to D/C HCTZ and encouraged to start Toprol XL. He stopped HCTZ, but deferred starting Toprol XL until his post op visit (4) Hypothyroidism: Cont Synthroid per home dose (5) Asthma: Stable Cont Advair daily per home regimen (6) Prostate cancer: S/P brachytherapy Follows Dr. Caballero urology of [facility] detrol and flomax (7) Anxiety and depression: mood stable, Cont sertraline (8) MARA (obstructive sleep apnea): Refuses CPAP machine. (9) HTN (hypertension): lisinopril on hold to prevent hypotension, BP stable HCTZ stopped at pre op cardiology appt and recommended he start Toprol XL 25mg but he has not yet started this (10) Diabetes mellitus, type II: Continue current insulin regimen glycemic pharmacy on board, appreciate their management (11) Migraine: No VANEGAS Rizatriptan PRN migraine (12) DVT prophylaxis: SCDs/Full Code Dispo-per PT, OT and Ortho Spine Thank you for this consultation. We will follow the patient with you during their hospital stay. You can reach a [facility]/10 via pager @ [phone]. Admission and Anticipated Discharge Date Admission Date: November 04, 2019 Subjective Follow-up status post back surgery Seen resting in bed, comfortable, watching TV, in good spirits States he feels fine overall today except for mild to moderate back pain Tolerated physical therapy well, no dizziness, chest pain, palpitations Has usual dyspnea after exertion but this is chronic as per patient No other symptoms Review of Systems Review of Systems: All systems reviewed & are unremarkable except as noted in HPI & below Physical Exam Physical Exam: General- oriented x 3, not in distress, speaks in sentences with no effort or accessory muscle use Eyes- anicteric Neck- no JVD Lungs- clear breath sounds bilaterally, no rales/wheezes Heart- normal rate, regular rhythm; no murmurs Abdomen- normal bowel sounds, nondistended, soft, nontender Extremities- no pretibial edema, no calf tenderness Back-drain in place, with serosanguineous output Neuro- alert, oriented x 3; no gross focal neurologic deficits Skin- warm & dry Results & Data Results & Data ([facility]) Vital Signs (Past 12 Hours) Vital Signs Temp Pulse Resp BP Pulse Ox 11/06/19 15:21 36.7 C 68 18 153/80 H 94 11/06/19 07:53 36.9 C 71 18 122/68 90 Laboratory Results Laboratory Results - last 24 hr 11/05/19 11/06/19 11/06/19 20:40 05:23 07:58 Hgb 9.0 L Hct 27.1 L POC Glucose 114 H 129 H 11/06/19 11/06/19 12:07 17:11 Hgb Hct POC Glucose 164 H 165 H
[2019-11-06] MEDS: TAMSULOSIN HCL 0.4 MG CAP PO SCH (21:41)
[2019-11-06] MEDS: TOLTERODINE TARTRATE LA 4 MG CAPCR PO SCH (21:41)
[2019-11-06] MEDS: SERTRALINE HCL 50 MG TABLET PO SCH (21:41)
[2019-11-06] MEDS: MONTELUKAST SODIUM 10 MG TABLET PO SCH (21:42)
[2019-11-06] MEDS: ATORVASTATIN 40 MG TAB PO SCH (21:42)
[2019-11-06] MEDS: MELATONIN 3 MG TAB PO SCH (21:42)
[2019-11-06] MEDS: SERTRALINE HCL 100 MG TABLET PO SCH (21:43)
[2019-11-06] MEDS: DOCUSATE SODIUM/SENNA 50/8.6MG TAB PO SCH (21:44)
[2019-11-07] MEDS: LEVOTHYROXINE SODIUM 175 MCG TABLET PO SCH (06:19)
[2019-11-07] MEDS: POLYETHYLENE (MIRALAX) 17 GM PACK PO SCH ×4 (06:19→23:54)
--- NOTE | 2019-11-07 08:22 | Orthopedic Progress Note ---
Date of Service November 07, 2019 Assessment & Plan (1) S/P spinal surgery: Patient is continuing to make progress. Will maintain JULIA drain. Work on aggressive bowel regimen. Continue with physical therapy today. Anticipate discharge home tomorrow. Admission and Anticipated Discharge Date Admission Date: November 04, 2019 Supervising Physician Co-Signing Physician Notes Dr. Salvador Duckworth Isrrael Cadena is postoperative day 3 posterior lumbar decompression and fusion L3-S1. He is making progress. Leg pain is improving daily. Back pain is controlled. He is passing flatus but no bowel movement. JULIA output last shift was 50 cc. No other complaints. Review of Systems Review of Systems: All systems reviewed & are unremarkable except as noted in HPI & below Physical Exam Physical Exam: Patient is sitting up in bed. He is in no acute distress. He is alert and oriented x3. Lumbar dressing is clean dry and intact. JULIA drain is intact and functioning Lower extremities calves are soft and nontender bilaterally. Strength is intact bilateral lower extremities. Results & Data ([facility]) Vital Signs (Past 12 Hours) Vital Signs Temp Pulse Resp BP Pulse Ox 11/07/19 08:18 36.7 C 59 L 18 125/76 96 11/06/19 23:21 37.0 C 73 16 118/68 92
[2019-11-07] MEDS: INSULIN ASPART 100 UNITS/ML 3 ML PEN SC SCH ×4 (08:36→21:09)
[2019-11-07] MEDS: INSULIN GLARGINE SOLOSTAR 100 UNITS/ML 3 ML PEN SC SCH (08:37)
[2019-11-07] MEDS: dexAMETHasone 8 MG in SYRINGE 0 ML IV SCH (08:37)
[2019-11-07] MEDS: FLUTICASONE/VILANTEROL 200/25MCG 14 PUFFS/INHALER INH SCH (08:37)
[2019-11-07 08:43] LABS: Basophils # (auto) 0.01 K/uL (0-0.2); Basophils % (auto) 0.1 %; Eosinophils # (auto) 0.06 K/uL (0-0.5); Eosinophils % (auto) 0.6 %; Hematocrit (blood only) 29.2 % (42-52); Hemoglobin 9.8 g/dL (14.0-18.0); Immature Granulocytes # (auto) 0.09 K/uL (0.00-0.02); Immature Granulocytes % (auto) 0.8 %; Lymphocytes # (auto) 1.53 K/uL (1.2-3.4); Lymphocytes % (auto) 14.3 %; Mean Corpuscular Hemoglobin 29.6 pg (25-34); Mean Corpuscular Hgb Conc 33.6 g/dL (32-36); Mean Corpuscular Volume 88.2 fL (80-100); Mean Platelet Volume 8.5 fL (7.4-10.4); Monocytes # (auto) 1.33 K/uL (0.11-0.59); Monocytes % (auto) 12.4 %; Neutrophils # (auto) 7.68 K/uL (1.4-6.5); Neutrophils % (auto) 71.8 %; Platelet Count 190 K/uL (130-400); RDW Coefficient of Variation 14.7 % (11.5-14.5); RDW Standard Deviation 47.3 fL (36.4-46.3); Red Blood Count 3.31 M/uL (4.7-6.1)
[2019-11-07] MEDS: GABAPENTIN 300 MG CAP PO SCH ×2 (08:43→20:38)
[2019-11-07] MEDS: ASPIRIN 81 MG ECTAB PO SCH (08:43)
[2019-11-07] MEDS: PANTOprazole 40 MG TAB PO SCH (08:43)
[2019-11-07] MEDS: MULTIVITAMIN TAB PO SCH (08:43)
[2019-11-07] MEDS: OXYCODONE HCL IR 5 MG TAB (IMMEDIATE RELEASE) PO PRN ×2 (08:54→19:08)
[2019-11-07 09:46] LABS: BUN Creatinine Ratio 27.5 (10-20); Calcium 8.8 mg/dl (8.5-10.1); Creatinine Clr Calc Pharmacy 92.5 ml/min; Est GFR (Non-African American) 82.9; Potassium 3.7 mmol/L (3.5-5.1)
[2019-11-07] MEDS ORDERED: CYCLOBENZAPRINE HCL 5 MG TAB PO PRN (19:16)
--- NOTE | 2019-11-07 19:28 | Hospitalist Progress Note ---
Date of Service November 07, 2019 Assessment & Plan (1) S/P spinal surgery: POD 2 s/p L3-S1 Decompression and Fusion, Interbodies at L3-L4 and L5-S1, Spinal Cord Monitoring EBL: 1,300ml JULIA drain 610ml Continues to remain stable Hemoglobin stable at 9 Transfuse as needed for hemoglobin below 7 DVT prophylaxis per Ortho service (2) Anemia: Management per #1 (3) Non-occlusive coronary artery disease: chronic, stable. Continue aspirin Resume lisinopril Follows [facility] Cardiology - at pre op visit was advised to D/C HCTZ and encouraged to start Toprol XL. He stopped HCTZ, but deferred starting Toprol XL until his post op visit (4) Hypothyroidism: Cont Synthroid per home dose (5) Asthma: Stable Cont Advair daily per home regimen (6) Prostate cancer: S/P brachytherapy Follows Dr. Caballero urology of [facility] detrol and flomax (7) Anxiety and depression: mood stable, Cont sertraline (8) MARA (obstructive sleep apnea): Refuses CPAP machine. (9) HTN (hypertension): Resume lisinopril HCTZ stopped at pre op cardiology appt and recommended he start Toprol XL 25mg but he has not yet started this (10) Diabetes mellitus, type II: Continue current insulin regimen glycemic pharmacy on board, appreciate their management (11) Migraine: No VANEGAS Rizatriptan PRN migraine (12) DVT prophylaxis: SCDs/Full Code Dispo-per PT, OT and Ortho Spine Thank you for this consultation. We will follow the patient with you during their hospital stay. You can reach a member of the [facility] Hospitalist Team 14/10 via pager @ [phone]. Admission and Anticipated Discharge Date Admission Date: November 04, 2019 Subjective Follow-up for postop back surgery Seen sitting up in bed, comfortable, watching TV States he feels fine overall Back pain well controlled Denies dizziness, chest pain, unusual shortness of breath No other symptoms Review of Systems Review of Systems: All systems reviewed & are unremarkable except as noted in HPI & below Physical Exam Physical Exam: General- oriented x 3, not in distress, speaks in sentences with no effort or accessory muscle use Eyes- anicteric Neck- no JVD Lungs- clear BS bilaterally, no crackles Heart- normal rate, regular rhythm; no murmurs Abdomen- normal bowel sounds, nondistended, soft, nontender Extremities- no pretibial edema, no calf tenderness Neuro- alert, oriented x 3; no gross focal neurologic deficits Skin- warm & dry Results & Data Results & Data ([facility]) Vital Signs (Past 12 Hours) Vital Signs Temp Pulse Resp BP Pulse Ox 11/07/19 15:16 36.7 C 68 18 142/74 H 92 11/07/19 08:18 36.7 C 59 L 18 125/76 96 Laboratory Results Laboratory Results - last 24 hr 11/04/19 11/06/19 11/07/19 09:03 20:31 08:16 WBC RBC Hgb Hct MCV MCH MCHC RDW Std Deviation RDW Coeff of Cristina Plt Count MPV Immature Gran % (Auto) Neut % (Auto) Lymph % (Auto) [place] % (Auto) Eos % (Auto) Baso % (Auto) Neut # (Auto) Lymph # (Auto) [place] # (Auto) Eos # (Auto) Baso # (Auto) Immature Gran # (Auto) Sodium Potassium Chloride Carbon Dioxide Anion Gap BUN Creatinine Est Cr Clr Drug Dosing Est GFR ( Amer) Est GFR (Non-Af Amer) BUN/Creatinine Ratio Glucose POC Glucose 158 H 133 H Calcium Crossmatch See Detail 11/07/19 11/07/19 11/07/19 08:35 08:35 11:58 WBC 10.70 RBC 3.31 L Hgb 9.8 L Hct 29.2 L MCV 88.2 MCH 29.6 MCHC 33.6 RDW Std Deviation 47.3 H RDW Coeff of Cristina 14.7 H Plt Count 190 MPV 8.5 Immature Gran % (Auto) 0.8 Neut % (Auto) 71.8 Lymph % (Auto) 14.3 [place] % (Auto) 12.4 Eos % (Auto) 0.6 Baso % (Auto) 0.1 Neut # (Auto) 7.68 H Lymph # (Auto) 1.53 [place] # (Auto) 1.33 H Eos # (Auto) 0.06 Baso # (Auto) 0.01 Immature Gran # (Auto) 0.09 H Sodium 139 Potassium 3.7 Chloride 105 Carbon Dioxide 28 Anion Gap 6.0 BUN 24 H Creatinine 0.88 Est Cr Clr Drug Dosing 92.5 Est GFR ( Amer) 96.0 Est GFR (Non-Af Amer) 82.9 BUN/Creatinine Ratio 27.5 H Glucose 109 H POC Glucose 156 H Calcium 8.8 Crossmatch 11/07/19 17:16 WBC RBC Hgb Hct MCV MCH MCHC RDW Std Deviation RDW Coeff of Cristina Plt Count MPV Immature Gran % (Auto) Neut % (Auto) Lymph % (Auto) [place] % (Auto) Eos % (Auto) Baso % (Auto) Neut # (Auto) Lymph # (Auto) [place] # (Auto) Eos # (Auto) Baso # (Auto) Immature Gran # (Auto) Sodium Potassium Chloride Carbon Dioxide Anion Gap BUN Creatinine Est Cr Clr Drug Dosing Est GFR ( Amer) Est GFR (Non-Af Amer) BUN/Creatinine Ratio Glucose POC Glucose 167 H Calcium Crossmatch
[2019-11-07] MEDS: SERTRALINE HCL 50 MG TABLET PO SCH (20:36)
[2019-11-07] MEDS: MELATONIN 3 MG TAB PO SCH (20:37)
[2019-11-07] MEDS: TOLTERODINE TARTRATE LA 4 MG CAPCR PO SCH (20:37)
[2019-11-07] MEDS: ATORVASTATIN 40 MG TAB PO SCH (20:38)
[2019-11-07] MEDS: TAMSULOSIN HCL 0.4 MG CAP PO SCH (20:38)
[2019-11-07] MEDS: MONTELUKAST SODIUM 10 MG TABLET PO SCH (20:39)
[2019-11-07] MEDS: DOCUSATE SODIUM/SENNA 50/8.6MG TAB PO SCH (20:44)
[2019-11-07] MEDS: lisinopriL 5 MG TAB PO SCH (21:00)
[2019-11-07] MEDS: SERTRALINE HCL 100 MG TABLET PO SCH (21:01)
[2019-11-07 23:17] VITALS: O2SAT 94
[2019-11-08] MEDS: POLYETHYLENE (MIRALAX) 17 GM PACK PO SCH ×2 (05:08→11:43)
[2019-11-08] MEDS: LEVOTHYROXINE SODIUM 175 MCG TABLET PO SCH (05:16)
[2019-11-08 06:39] VITALS: BP 105/65; PULSE 62; TEMP 97.7
[2019-11-08] MEDS: FLUTICASONE/VILANTEROL 200/25MCG 14 PUFFS/INHALER INH SCH (07:36)
[2019-11-08] MEDS: ASPIRIN 81 MG ECTAB PO SCH (07:37)
[2019-11-08] MEDS: MULTIVITAMIN TAB PO SCH (07:37)
[2019-11-08] MEDS: dexAMETHasone 8 MG in SYRINGE 0 ML IV SCH (07:37)
[2019-11-08] MEDS: lisinopriL 5 MG TAB PO SCH (07:38)
[2019-11-08] MEDS: PANTOprazole 40 MG TAB PO SCH (07:38)
[2019-11-08] MEDS: GABAPENTIN 300 MG CAP PO SCH (07:38)
[2019-11-08] MEDS: INSULIN ASPART 100 UNITS/ML 3 ML PEN SC SCH ×2 (07:41→12:30)
[2019-11-08] MEDS: INSULIN GLARGINE SOLOSTAR 100 UNITS/ML 3 ML PEN SC SCH (07:42)
--- NOTE | 2019-11-08 10:00 | Pharmacy Report ---
Glycemic Control Progress Note - Date of Service November 08, 2019 - Scope Glycemic Pharmacist consulted for glycemic control to write orders per [facility] inpatient glycemic control protocol. - Objective Accuchecks BSG(last 24 hours):: 11/07/19 11/07/19 11/07/19 11:58 17:16 20:25 POC Glucose 156 H 167 H 121 H 11/08/19 06:37 POC Glucose 138 H HbA1c:: Hemoglobin A1c 6.7 % (4.5-5.6) H 10/12/19 16:04 - Recent Pertinent Medications The patient is currently receiving: * Basal insulin: Lantus 20 units every 24 hours * Correctional Insulin: Novolog Correction per scale ACHS Goal Range: Low 110 mg/dL - High 140 mg/dL Correction Factor: 25 mg/dL/unit * Prandial insulin: Per carb ratio of 1 unit per 8 grams CHO consumed - Outpatient Anti-Diabetic Meds DIET-CONTROLLED - Assessment & Plan ASSESSMENT: * See progress note from 11/05/2019 for more background info, in short: * Pt receiving SQ basal bolus insulin regimen for hyperglycemia secondary to baseline DM (outpatient regimen on hold). Patient is POD 4 for lumbar surgery and is currently receiving dexamethasone 8 mg IV daily. * Patient is currently receiving an average of 38 units of insulin per day * 20 units of basal insulin * 18 units of prandial/correctional insulin * BSGs ranging 121 - 167 mg/dl over the past 24hrs * Changes needed to insulin regimen: * AM Fasting BSG = 138 mg/dl. This is in goal range for patient based on inpatient targets and co-morbidities. Therefore Basal insulin will be continued. Consider increasing if fasting BSG > 140 mg/dL tomorrow. * Post-prandial BSGs trended upwards yesterday. Tightened carbohydrate ratio. * Total daily dose = ~40 units. PLAN FOR INPATIENT GLYCEMIC CONTROL: * Continuing Lantus 20 units SQ daily with dexamethasone * Continuing correction factor of 25 mg/dl/unit * TIGHTENING carb ratio to 1 unit per 7 grams CHO consumed * Continuing goal range of Low 110 mg/dL - High 140 mg/dL RECOMMENDATIONS FOR DISCHARGE: * Patient's HbA1C reasonably controlled for his age and comorbidities * goal HbA1C < 7% * currently HbA1C = 6.7% * Continue current diet control lifestyle Thank you.
[2019-11-08] MEDS: OXYCODONE HCL IR 5 MG TAB (IMMEDIATE RELEASE) PO PRN (11:41)
--- NOTE | 2019-11-08 13:36 | Discharge Summary ---
Date of Service November 08, 2019 Admission HPI Per Admitting Provider This is a 79-year-old male who presents with chronic persistent back and leg pain. After failing course of nonoperative care is here for surgical invention. Principal Diagnosis Lumbar spinal stenosis with neurogenic claudication Discharge Data Allergies Allergy/AdvReac Type Severity Reaction Status Date / Time tramadol AdvReac Intermediate double Verified 11/04/19 08:53 vision Consultations 11/04/19 15:04 Consult Case Management - Discharge Planning Routine Consult Hospitalist Routine Procedures Performed Operation Date: 11/04/19 10:05 Actual Procedures p L3-S1 Decompression and Fusion, Interbodies at L3-L4 and L5-S1, Spinal Cord Monitoring(Not Applicable) - Salvador Duckworth DO Ordered Studies 11/04/19 10:05 FL fluoroscopy <1hr Routine FL lumbar spine 2-3V Routine Hospital Course (1) S/P spinal surgery: Patient went multilevel lumbar decompression fusion tolerated this well was taken to the orthopedic for postoperative. Postop day 1 is up and ambulating leg symptoms improved. He progressed to postop day #2 on postop day 3 pain was controlled JULIA drain decreased appropriately. Subsequent discharge home. Discharge orders instructions from the chart for further review. Total Time Total Time Spent Total Time Spent (In Minutes): 20 minutes Discharge Plan Discharge Items Patient Disposition: Home - Self-Care Reason For Visit: Spinal Stenosis, Lumbar Region with Neurogenic Discharge Diagnosis: Number spinal stenosis with neurogenic claudication Activity: As commented below Non-emergency contact: Primary Care Provider Call non-emergency contact if: you have any medication questions Follow-up/Referrals: Patience Romero MD [Primary Care Provider] - Diet: Regular Addtl Attending Provider Instructions: ACTIVITY RECOMMENDATIONS: SELF CARE INSTRUCTIONS AFTER THORACIC/LUMBAR FUSIONS 1. You may walk to your tolerance. It is good exercise for your legs and back. Expect some back and intermittent leg aches and pains. 2. You may perform "counter-top" level activities (make a sandwich, lexi with a project, etc.). 3. No bending or lifting of more than 10 pounds or back twisting of any nature (roll like a log when turning in bed). 4. You may ride in a car for 20-30 minutes at a time. No driving until after your first visit with your doctor. 5. Frequent changes of position and restricting sitting to 30 minutes at a time will help limit the amount of back spasms and stiffness you may experience. 6. You may discontinue the use of ambulatory aids (cane, crutches, etc.) once your strength and confidence allow. 7. You may senior project engineer the shower and let water strike your incision when you arrive home at least once daily. Do not take a tub bath, sit in a hot tub or go into a swimming pool until after your first recheck in the office. SPECIAL CARE INSTRUCTIONS: VERY IMPORTANT TO READ AND REVIEW A. Your surgical incision has been closed with a cosmetic suture under the skin that will dissolve in about 6 weeks. In 14 days, you can use a pair of clean scissors and cut the suture that is left outside of the skin at the ends of your incision. 1. The small skin tapes can be removed 7 days after surgery if they have not fallen off by that point. 2. You may keep the wound open to air as much as possible to promote healing after post-op day number 5 unless told otherwise by your doctor. 3. If you think the wound looks like it is becoming infected (redness or worsening drainage) and/or you are experiencing fever, chill or worsening back pain and muscle spasms, contact the office so that we may evaluate you as soon as possible. B. Complications are uncommon, but please contact us if you have any signs or symptoms of: 1. wound infection (fever higher than 102.5 degrees F, redness, separation of wound, drainage, or increasing pain from the incision) 2. blood clots in legs (pain, swelling, redness and warmth in legs) 3. urinary tract infection (fever higher than 102.5 degrees F, burning upon urination or increased frequency of urination) 4. nerve problems (inability to walk on your toes or heels, numbness, loss of bowel or bladder control) 5. any other symptoms that concern you C. Please call the office at if you have any concerns or questions about your operation or recovery. D. No smoking! Smoking drastically decreases the chance of a solid fusion. E. Do not take any anti-inflammatory medications (Indocin, Advil, Motrin, Aspirin, Naprosyn, etc.) as these may inhibit the chance of a solid fusion. Tylenol is okay to take for pain. MANAGING PAIN AFTER SPINAL SURGERY 1. Narcotic medication is intended for short-term use and will be provided for surgical pain. Surgical pain usually lasts for a period of 4-6 weeks. Narcotic medication includes Percocet, Vicodin, Darvocet, Tylenol #3 or Lortab. 2. Longer-term pain is more appropriately treated with non-narcotic medication such as Tylenol ES. 3. Muscle spasm is not appropriately treated with narcotics. Muscle relaxers such as Soma, Flexeril or Skelaxin can be used along with Tylenol ES. 4. Remember that we all live with some "aches and pains". This is not unusual or uncommon after an injury or as we get older. a. Back pain is expected and may include muscle spasms for 4 to 6 weeks after surgery. The pain should gradually improve. If the pain worsens for no apparent reason, please contact the office. b. Intermittent leg pain may also be experienced and should not be concerned about unless it worsens for no apparent reason. If so, please contact the office. 5. We will provide appropriate medication within the normal guidelines of their prescribed use. We will also be very cautious and aware of potential abuse and extended duration of patients' medication needs. a. Pain medications are for your comfort and to assist with sleep and rest so that the tissue can heal. They are not provided in order to return to normal activity and should not be used through the day. To do so or worsening pain at night can result from ongoing tissue damage and development of tolerance to the prescribed medicine. 6. Please allow 2-3 days to process refills. Prescriptions will not be mailed but must be picked up at the office. FOLLOW UP VISIT: Keep your scheduled follow-up appointment. Any questions, please call the office at . Pending Studies at Discharge: No Stand-Alone Forms: My Guided Interventions, Opioid Pain Management, Smoking Cessation Medications and DC Order Prescriptions: New tramadol 50 mg tablet 50 mg PO Q6H PRN (Reason: pain, moderate) Qty: 20 RF: 0 oxycodone 5 mg tablet 5 mg PO Q6H PRN (Reason: pain, severe) Qty: 20 RF: 0 Continued levothyroxine 175 mcg Tablet 175 mcg PO QAM RF: 0 rizatriptan [Maxalt] 10 mg Tablet 10 mg PO UD PRN (Reason: Migraine Headache) RF: 0 omeprazole 40 mg Capsule,Delayed Release(Dr/Ec) 40 mg PO QAM RF: 0 aspirin 81 mg Tablet,Delayed Release (Dr/Ec) 81 mg PO DAILY RF: 0 gabapentin 300 mg Capsule 300 mg PO BID RF: 0 lisinopril 5 mg Tablet 5 mg PO QAM RF: 0 melatonin 5 mg Tablet 5 mg PO HS RF: 0 multivitamin Tablet 1 tab PO DAILY RF: 0 cyclobenzaprine 10 mg Tablet 10 mg PO TID PRN (Reason: Pain) RF: 0 atorvastatin 40 mg Tablet 40 mg PO PM RF: 0 fluticasone propion-salmeterol [Advair Diskus] 250-50 mcg/dose Blister With Device 1 inh INHALATION BID RF: 0 tolterodine [Detrol LA] 4 mg Capsule,Extended Release 24hr 4 mg PO QPM RF: 0 sertraline 100 mg Tablet 100 mg PO QPM RF: 0 tamsulosin [Flomax] 0.4 mg Capsule 0.4 cap PO QPM RF: 0 hydrochlorothiazide 12.5 mg Capsule 12.5 mg PO QAM RF: 0 montelukast [Singulair] 10 mg Tablet 10 mg PO PM RF: 0 albuterol sulfate [Ventolin HFA] 90 mcg/actuation Hfa Aerosol Inhaler 2 puff INHALATION QID PRN (Reason: Shortness Of Breath) RF: 0 Discontinued celecoxib [Celebrex] 200 mg Capsule 200 mg PO QAM RF: 0 Discharge Orders: Discharge Order (Routine); Ordered 11/08/19 Ordered By: Salvador Holcomb/Other Patient Handouts: DVT Post Op Prevention, Managing Type 2 Berenice betes, Diabetes: Meal Planning, A1C Admission Data Admit Date/Time: 11/04/19 13:45 Attending Provider: Salvador Duckworth Admit Provider: Salvador Duckworth Primary Care Provider: Patience Romero Other Providers: Francisco Arce ; Darien Uribe Other Interventions: Discharge Summary Assessment (RN) Last Done: 11/08/19 12:13
--- NOTE | 2019-11-08 20:23 | Hospitalist Progress Note ---
Date of Service November 08, 2019 Assessment & Plan (1) S/P spinal surgery: POD 2 s/p L3-S1 Decompression and Fusion, Interbodies at L3-L4 and L5-S1, Spinal Cord Monitoring EBL: 1,300ml JULIA drain 610ml Continues to remain stable Hemoglobin stable no medical contraindication for discharge DVT prophylaxis per Ortho service (2) Anemia: Management per #1 (3) Non-occlusive coronary artery disease: chronic, stable. Continue aspirin Resume lisinopril Follows [facility] Cardiology - at pre op visit was advised to D/C HCTZ and encouraged to start Toprol XL. He stopped HCTZ, but deferred starting Toprol XL until his post op visit (4) Hypothyroidism: Cont Synthroid per home dose (5) Asthma: Stable Cont Advair daily per home regimen (6) Prostate cancer: S/P brachytherapy Follows Dr. Caballero urology of [facility] detrol and flomax (7) Anxiety and depression: mood stable, Cont sertraline (8) MARA (obstructive sleep apnea): Refuses CPAP machine. (9) HTN (hypertension): Resume lisinopril and HCTZ- advised patient not to take if systolic BP < 100, or if with (+) dizziness, and contact PCP immediately if this happens advised close ff up with PCP and Head Char Filter Tank Tender (10) Diabetes mellitus, type II: Continue current insulin regimen (11) Migraine: No VANEGAS Rizatriptan PRN migraine (12) DVT prophylaxis: SCDs/Full Code Thank you for this consultation. We will follow the patient with you during their hospital stay. You can reach a [facility] the [facility] via pager @ [phone]. Admission and Anticipated Discharge Date Admission Date: November 04, 2019 Subjective ff up for s/p back surgery seen resting in bed, comfortable in good spirits states he feels fine overall no dizziness, chest pain, shortness of breath, palpitations no other symptoms Review of Systems Review of Systems: All systems reviewed & are unremarkable except as noted in HPI & below Physical Exam Physical Exam: General- oriented x 3, not in distress, speaks in sentences with no effort or accessory muscle use Eyes- anicteric Neck- no JVD Lungs- clear breath sounds bilaterally, no rales/wheezes Heart- normal rate, regular rhythm; no murmurs Abdomen- normal bowel sounds, nondistended, soft, nontender Extremities- no pretibial edema, no calf tenderness Neuro- alert, oriented x 3; no gross focal neurologic deficits Skin- warm & dry Results & Data Results & Data ([facility]) Vital Signs (Past 12 Hours) Vital Signs Temp Pulse Resp BP Pulse Ox 11/08/19 12:13 36.5 C 62 16 105/65 94
== END 2019-11-08 13:34 | disposition home or self-care (01) | DRG 454 ==
LOC: ASU 07:55 → 3E 13:45
DX: E03.9 Hypothyroidism, unspecified; Z83.3 Family history of diabetes mellitus; E11.9 Type 2 diabetes mellitus without complications; E78.5 Hyperlipidemia, unspecified; J45.909 Unspecified asthma, uncomplicated; M48.062 Spinal stenosis, lumbar region with neurogenic claudication; I25.10 Atherosclerotic heart disease of native coronary artery without angina pectoris; Z85.46 Personal history of malignant neoplasm of prostate; Z82.49 Family history of ischemic heart disease and other diseases of the circulatory system; N40.0 Benign prostatic hyperplasia without lower urinary tract symptoms; D62 Acute posthemorrhagic anemia; F41.8 Other specified anxiety disorders; I71.4 Abdominal aortic aneurysm, without rupture; Z92.3 Personal history of irradiation; Z96.643 Presence of artificial hip joint, bilateral; Z79.82 Long term (current) use of aspirin; I10 Essential (primary) hypertension

== ENCOUNTER 2021-05-25 15:51 | Inpatient (IN) ==
[2021-05-25] MEDS ORDERED: SODIUM CHLORIDE 0.9% 1000ML 1,000 ML IV ONE ×2 (16:17→17:11)
--- NOTE | 2021-05-25 16:22 | Emergency Department Note ---
Impression & Plan Acute hypotension, Lactic acidosis ED Provider Note Name: BEKAH AMAYA Age: 80 Sex: M Arrives Via: Walk-In Informant: Patient, ED Provider: Jah Shultz MD Chief Complaint: Weakness Impression: As per impressions above Medical Decision Makin-year-old gentleman with a history of type 2 diabetes hypertension, UTIs, medical issues including an episode of PRES 1 year ago for which she had been on 3 antihypertensive's and then cut down to 2 of them. He went to be seen at the paresthesia testing clinic today and was noted to be hypotensive and sent to the ER for evaluation. On arrival patient is dehydrated and weak appearing. He has blood pressure in the 60s. His immediately put in Trendelenburg and 2 IVs obtained. He was also obtained blood cultures and lactic acid. He was given IV fluids and blood pressure started to trend back up. Labs revealing unremarkable white count but an elevated lactic acid. He does not have a fever nor any clear source of infection at this time however given the lactic acidosis and hypotension he was empirically given IV Zosyn. I will note the patient received 30 mL/kg IV fluid based on his ideal body weight of 70 kg. Repeat volume evaluation obtained following IV fluids and patient does look much improved and does not appear to require further fluids at this time. Patient on repeat evaluation does appear improved he is clear lungs soft abdomen is in no distress. There is not a clear obvious source of infection at this time however he will require hospitalization given the lactic acidosis, hypotension and the degree of weakness he had on arrival. Hospitalist consulted for further ma nagement patient and are comfortable with this plan. Prior Medical Record and Triage/Nursing Notes reviewed by Me Additional history obtained from chart, patient, Differentials:Infection, dehydration, metabolic abnormality, hypo/hyperglycemia, electrolyte disturbance, anemia, hypoxia, cardiac sources, intracerebral event, toxicologic, neurologic, as well as other pathologies. Vital Signs: reviewed and remarkable for hypotension Interventions: Normal saline bolus 2.5 L IV, Zosyn 4.5 g IV Given the patients BMI >30, IBW was used to calculate the 30ml/kg fluid bolus. Labs:Reviewed and remarkable for elevated lactate, repeat lactate has returned to normal following fluid bolus Imaging:Reviewed chest x-ray no acute findings EKG:Per My Interpretation: Indication Weakness: NSR 67 bpm, qtc 445. No Ectopy. No Ischemia. Compared to EKG 05/25/20, no significant changes. Cardiac/Tele Monitoring: Cardiac Monitoring: An Order was placed for continuous cardiac monitoring. The monitor shows a rate of 60 with a normal sinus rhythm. Consults:Kaya hospitalist Plan: Disposition:Hospitalization. Condition: Good History of Present Illness:Gentleman arrives for evaluation of weakness. Patient with worsening generalized weakness and fatigue throughout the last few days. This afternoon he notes he has been feeling very after lunch this afternoon and he notes that he felt that his exhaustion was due to eating so much. He was seen at preanesthesia testing this afternoon in preparation for thoracic spinal surgery. At anesthesia testing they noted that his blood pressure was low and he was quite weak. He was sent to the ER for further evaluation. Patient notes he just feels very very tired. He notes his chronic low thoracic back pain is unchanged from what it has been going on the last few months. He denies any chest pain or abdominal pain he has had no recent falls, trauma, injuries. He does note a history of an aortic aneurysm but again denies any change in his pains. He has had no recent headaches nor focal neurologic deficits and denies any slurred speech. Patient has not taken any medications for this. And exertion seems to make it worse. Rest seems to make it better. He denies any headache, neck pain, chest pain, fevers, chills, nausea, vomiting, abdominal pain, urinary symptoms, leg swelling, calf pain, bleeding/bruising, other symptoms. Patient does note that his blood pressure tends to run a bit on the low side recently due to difficulties in ironing out what blood pressure medications to use. He was seen by his PCP about this and of his 3 meds one of the blood pressure meds were stopped. Unfortunately his PCP is changing notes he has not been able to follow-up with them recently. ROS: See above HPI for pertinent positives & negatives. 10 systems reviewed and were otherwise negative. Past Medical History:See Below Past Surgical History:See Below Family History:See Below Social History:See Below Home Medications:See Below Allergies:See Below Vitals:Blood Pressure: 64/47, Pulse 67, RR 18, T 36.9C, O2 94% on RA Physical Exam: GENERAL: Patient is tired/ill appearing and in no acute distress. Dehydrated EYES: No scleral icterus, unremarkable pupils. ENT: Mucous membranes dry, no nasal congestion. NECK: No masses appreciated, nomeningismus, trachea is midline. RESPIRATORY: No dyspnea. Clear to auscultation and equal bilaterally. No wheeze, no rhonchi. CARDIOVASCULAR: Regular rate and rhythm.No murmurs, rubs, gallops appreciated. GASTROINTESTINAL: Abdomen soft, non-tender, no peritonitis.Bowel sounds positive.No masses appreciated. BACK: No midline tenderness, no CVA tenderness EXTREMITIES: Left lower leg in brace. Normal motion all extremities, no cyanosis, no edema. NEUROLOGIC: Alert and oriented, no acute motor or sensory deficits, no focal weakness, cranial nerves grossly intact. SKIN: No rash, no jaundice, no diaphoresis. PSYCH: Appropriate GCS: 15 ED Course: Times/Reassessments: Vastly improved with IV fluids and fluid resuscitation is working well. Patient breathing comfortably in no distress. He is comfortable with hospitalization as his . Critical Care: I have personally spent 40 minutes of critical care time in the direct management of this patient. Acute hypotension with lactic acidosis of uncertain etiology requiring fluid resuscitation critical management of patient throughout stay This was a life/limb threatening event. This 40 minutes is in excess of all separately billable procedures. Jah Shultz MD Past Med/Surg History Medical History AAA (abdominal aortic aneurysm) LAST CHECKED 1 YEAR AGO Anxiety and depression Asthma last rescue inhaler several days prior to PAT visit BPH (benign prostatic hyperplasia) URINARY RETENTION>HAS DONE SELF CATH IN PAST "RECENLTY HAVING TROUBLE GETTING THE CATHETER IN" Chronic back pain Diabetes mellitus, type II Diet controlled Foot drop LEFT (WEARS BRACE) Hearing deficit History of kidney stones History of prostate cancer 2000 - seed placement, external radiation HLD (hyperlipidemia) HTN (hypertension) controlled, stable per pt Hx of dizziness Hypothyroidism Migraine Non-occlusive coronary artery disease No stents Obesity MARA (obstructive sleep apnea) DOES NOT USE DEVICE Osteoarthritis Posterior reversible encephalopathy syndrome HOSPITALIZED AT [facility] 05/2020>REASON FOR FOOT DROP/DIZZINESS CONT. (NO NEURO LOGIST CURRENTLY) Surgical History Fusion of spine LUMBAR History of anesthesia reaction HEADACHE - cleared up after 30 minutes History of appendectomy History of cardiac cath 11/2017 - mild luminal irregularities of LAD & L Cx, EF: 60% - [facility] [id number] disease[facility] History of colonoscopy History of tooth extraction History of total hip arthroplasty LEFT/RT Family History Grandmother (Paternal) Family history of diabetes mellitus Other Coronary heart disease No family history of adverse response to anesthesia Social History Smoking Status: Former smoker Second Hand Exposure: No; Do You Dip or Chew Tobacco: No; Hx Alcohol Use: Yes Alcohol type: wine Hx Substance Use: No Preferred Language: Norwegian Communication Ability: Effective 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: No Beliefs That Will Affect Care: None marital status: Current Living Situation: Spouse Other Information That Helps Us Care for You: No Feels Safe at Home: Yes Safety Concerns: Feels Safe At This Time Assistive Devices: Brace/Splint/Immobilizer and Walker Assistive Devices Comment: back & foot brace Allergies Allergies Allergy/AdvReac Type Severity Reaction Status Date / Time tramadol AdvReac Intermediate double Verified 05/25/21 18:33 vision Home Meds Home Medications Medication Instructions Recorded Confirmed albuterol sulfate 90 mcg/actuation 2 puff INHALATION Q4H PRN 02/23/18 05/25/21 aerosol inhaler (Ventolin HFA) atorvastatin 40 mg tablet 40 mg PO QPM 02/23/18 05/25/21 fluticasone 250 mcg-salmeterol 50 1 inh INHALATION BID 02/23/18 05/25/21 mcg/dose blistr powdr for inhalation (Advair Diskus) hydrochlorothiazide 12.5 mg capsule 12.5 mg PO QAM 02/23/18 05/25/21 montelukast 10 mg tablet 10 mg PO QPM 02/23/18 05/25/21 (Singulair) lisinopril 5 mg tablet 5 mg PO QAM 10/08/19 05/25/21 melatonin 5 mg tablet 5 mg PO HS 10/08/19 05/25/21 rizatriptan 10 mg tablet (Maxalt) 10 mg PO DIRECTED PRN 10/08/19 05/25/21 benzonatate 100 mg capsule 100 mg PO TID PRN 05/25/20 05/25/21 celecoxib 200 mg capsule 200 mg PO QAM 05/25/20 05/25/21 levothyroxine 150 mcg tablet 150 mcg PO QAM 05/25/20 05/25/21 sertraline 50 mg tablet 50 mg PO DAILY 05/25/20 05/25/21 tiotropium bromide 2.5 2 puff INHALATION DAILY 05/25/20 05/25/21 mcg/actuation mist for inhalation (Spiriva Respimat) gabapentin 100 mg capsule 100 mg PO QAM 05/21/21 05/25/21 trospium 20 mg tablet 20 mg PO BID 05/21/21 05/25/21 Results & Data (ED) Vital Signs Vital Signs - 24 hr 05/25/21 15:56 05/25/21 16:21 05/25/21 16:29 Temperature 36.9 C Temperature Source Temporal Artery Scan Pulse Rate 67 Pulse Rate [Right Finger] 64 65 Respiratory Rate 18 16 15 Blood Pressure 64/47 L Blood Pressure [Right Arm] 78/43 L 84/52 L Blood Pressure Mean 52 Blood Pressure Mean [Right Arm] 54 62 Blood Pressure Position Sitting Pulse Oximetry 94 95 Oxygen Delivery Method Room Air Sepsis Recent Fever Within 48 Hours No Sepsis New/Unexplained Change in Mental Status No Sepsis Action Taken by Nursing No Action Required 05/25/21 16:49 05/25/21 18:00 Temperature Temperature Source Pulse Rate Pulse Rate [Right Finger] 80 Respiratory Rate 15 Blood Pressure Blood Pressure [Right Arm] 94/55 L 134/79 Blood Pressure Mean Blood Pressure Mean [Right Arm] 68 97 Blood Pressure Position Pulse Oximetry 100 Oxygen Delivery Method Sepsis Recent Fever Within 48 Hours Sepsis New/Unexplained Change in Mental Status Sepsis Action Taken by Nursing Laboratory Data Result diagrams: 05/25/21 16:20 05/25/21 16:20 Lab Results 05/25/21 05/25/21 05/25/21 Range/Units 16:20 16:20 16:20 WBC 7.03 (4.8-10.8) K/uL RBC 4.54 L (4.7-6.1) M/uL Hgb 13.3 L (14.0-18.0) g/dL Hct 41.0 L (42-52) % MCV 90.3 (80-100) fL MCH 29.3 (25-34) pg MCHC 32.4 (32-36) g/dL RDW Std Deviation 43.5 (36.4-46.3) fL RDW Coeff of Cristina 13.2 (11.5-14.5) % Plt Count 295 (130-400) K/uL MPV 9.1 (7.4-10.4) fL Immature Gran % (Auto) 0.1 % Neut % (Auto) 59.9 % Lymph % (Auto) 25.2 % Nelson % (Auto) 11.2 % Eos % (Auto) 3.3 % Baso % (Auto) 0.3 % Neut # (Auto) 4.21 (1.4-6.5) K/uL Lymph # (Auto) 1.77 (1.2-3.4) K/uL Nelson # (Auto) 0.79 H (0.11-0.59) K/uL Eos # (Auto) 0.23 (0-0.5) K/uL Baso # (Auto) 0.02 (0-0.2) K/uL Immature Gran # (Auto) 0.01 (0.00-0.02) K/uL Sodium 136 (136-145) mmol/L Potassium 4.2 (3.5-5.1) mmol/L Chloride 104 (98-107) mmol/L Carbon Dioxide 23 (21-32) mmol/L Anion Gap 9 (3-11) BUN 24 H (6-23) mg/dl Creatinine 1.27 (0.6-1.4) mg/dl Est Cr Clr Drug Dosing 59.1 ml/min Est GFR ( Amer) 62.3 ml/min Est GFR (Non-Af Amer) 53.8 ml/min BUN/Creatinine Ratio 18.9 (10-20) Glucose 137 H (70-99(Fasting)) mg/dl Lactate (0.4-2.0) mmol/L Calcium 9.8 (8.5-10.1) mg/dl Magnesium 2.2 (1.7-2.4) mg/dl Total Bilirubin 0.8 (0.2-1.0) mg/dl Direct Bilirubin 0.1 (0-0.2) mg/dl AST 17 (13-39) U/L ALT 11 (7-52) U/L Alkaline Phosphatase 93 (34-104) U/L Troponin I < 0.03 (0-0.04) ng/ml Total Protein 6.9 (6.0-8.3) gm/dl Albumin 4.3 (3.4-5.0) gm/dl Procalcitonin (0-0.5) ng/ml TSH 0.198 L (0.300-4.500) uIu/ml Urine Color Urine Appearance (Clear) Urine pH (4.5-7.5) Ur Specific [place] (1.000-1.030) Urine Protein (Negative) Urine Glucose (UA) (Negative) Urine Ketones (Negative) Urine Blood (Negative) Urine Nitrite (Negative) Urine Bilirubin (Negative) Urine Urobilinogen (Negative) Ur Leukocyte Esterase (Negative) Urine WBC (Auto) (0-5) /hpf Urine RBC (Auto) (0-4) /hpf U Hyaline Cast (Auto) (0-5) /lpf U Epithel Cells (Auto) (0-5) /lpf Urine Bacteria (Auto) (Negative) Ur Renal Epithelial Cell SARS-CoV-2, RNA, NAAT (NEGATIVE) 05/25/21 05/25/21 05/25/21 Range/Units 16:20 16:20 16:25 WBC (4.8-10.8) K/uL RBC (4.7-6.1) M/uL Hgb (14.0-18.0) g/dL Hct (42-52) % MCV (80-100) fL MCH (25-34) pg MCHC (32-36) g/dL RDW Std Deviation (36.4-46.3) fL RDW Coeff of Cristina (11.5-14.5) % Plt Count (130-400) K/uL MPV (7.4-10.4) fL Immature Gran % (Auto) % Neut % (Auto) % Lymph % (Auto) % Nelson % (Auto) % Eos % (Auto) % Baso % (Auto) % Neut # (Auto) (1.4-6.5) K/uL Lymph # (Auto) (1.2-3.4) K/uL Nelson # (Auto) (0.11-0.59) K/uL Eos # (Auto) (0-0.5) K/uL Baso # (Auto) (0-0.2) K/uL Immature Gran # (Auto) (0.00-0.02) K/uL Sodium (136-145) mmol/L Potassium (3.5-5.1) mmol/L Chloride (98-107) mmol/L Carbon Dioxide (21-32) mmol/L Anion Gap (3-11) BUN (6-23) mg/dl Creatinine (0.6-1.4) mg/dl Est Cr Clr Drug Dosing ml/min Est GFR ( Amer) ml/min Est GFR (Non-Af Amer) ml/min BUN/Creatinine Ratio (10-20) Glucose (70-99(Fasting)) mg/dl Lactate 2.1 H* (0.4-2.0) mmol/L Calcium (8.5-10.1) mg/dl Magnesium (1.7-2.4) mg/dl Total Bilirubin (0.2-1.0) mg/dl Direct Bilirubin (0-0.2) mg/dl AST (13-39) U/L ALT (7-52) U/L Alkaline Phosphatase (34-104) U/L Troponin I (0-0.04) ng/ml Total Protein (6.0-8.3) gm/dl Albumin (3.4-5.0) gm/dl Procalcitonin < 0.05 (0-0.5) ng/ml TSH (0.300-4.500) uIu/ml Urine Color Urine Appearance (Clear) Urine pH (4.5-7.5) Ur Specific [place] (1.000-1.030) Urine Protein (Negative) Urine Glucose (UA) (Negative) Urine Ketones (Negative) Urine Blood (Negative) Urine Nitrite (Negative) Urine Bilirubin (Negative) Urine Urobilinogen (Negative) Ur Leukocyte Esterase (Negative) Urine WBC (Auto) (0-5) /hpf Urine RBC (Auto) (0-4) /hpf U Hyaline Cast (Auto) (0-5) /lpf U Epithel Cells (Auto) (0-5) /lpf Urine Bacteria (Auto) (Negative) Ur Renal Epithelial Cell SARS-CoV-2, RNA, NAAT NEGATIVE (NEGATIVE) 05/25/21 Range/Units 17:40 WBC (4.8-10.8) K/uL RBC (4.7-6.1) M/uL Hgb (14.0-18.0) g/dL Hct (42-52) % MCV (80-100) fL MCH (25-34) pg MCHC (32-36) g/dL RDW Std Deviation (36.4-46.3) fL RDW Coeff of Cristina (11.5-14.5) % Plt Count (130-400) K/uL MPV (7.4-10.4) fL Immature Gran % (Auto) % Neut % (Auto) % Lymph % (Auto) % Nelson % (Auto) % Eos % (Auto) % Baso % (Auto) % Neut # (Auto) (1.4-6.5) K/uL Lymph # (Auto) (1.2-3.4) K/uL Nelson # (Auto) (0.11-0.59) K/uL Eos # (Auto) (0-0.5) K/uL Baso # (Auto) (0-0.2) K/uL Immature Gran # (Auto) (0.00-0.02) K/uL Sodium (136-145) mmol/L Potassium (3.5-5.1) mmol/L Chloride (98-107) mmol/L Carbon Dioxide (21-32) mmol/L Anion Gap (3-11) BUN (6-23) mg/dl Creatinine (0.6-1.4) mg/dl Est Cr Clr Drug Dosing ml/min Est GFR ( Amer) ml/min Est GFR (Non-Af Amer) ml/min BUN/Creatinine Ratio (10-20) Glucose (70-99(Fasting)) mg/dl Lactate (0.4-2.0) mmol/L Calcium (8.5-10.1) mg/dl Magnesium (1.7-2.4) mg/dl Total Bilirubin (0.2-1.0) mg/dl Direct Bilirubin (0-0.2) mg/dl AST (13-39) U/L ALT (7-52) U/L Alkaline Phosphatase (34-104) U/L Troponin I (0-0.04) ng/ml Total Protein (6.0-8.3) gm/dl Albumin (3.4-5.0) gm/dl Procalcitonin (0-0.5) ng/ml TSH (0.300-4.500) uIu/ml Urine Color Yellow Urine Appearance Clear (Clear) Urine pH 7.5 (4.5-7.5) Ur Specific [place] 1.013 (1.000-1.030) Urine Protein 1+ H (Negative) Urine Glucose (UA) Negative (Negative) Urine Ketones Negative (Negative) Urine Blood Negative (Negative) Urine Nitrite Negative (Negative) Urine Bilirubin Negative (Negative) Urine Urobilinogen Negative (Negative) Ur Leukocyte Esterase Trace H (Negative) Urine WBC (Auto) 5-10 H (0-5) /hpf Urine RBC (Auto) 0-4 (0-4) /hpf U Hyaline Cast (Auto) 10-30 H (0-5) /lpf U Epithel Cells (Auto) >30 H (0-5) /lpf Urine Bacteria (Auto) Negative (Negative) Ur Renal Epithelial Cell Not Reportable SARS-CoV-2, RNA, NAAT (NEGATIVE) Administered Medications Atorvastatin Calcium (Atorvastatin 40 Mg Tab) 40 mg PO QPM JACKELINE Stop: 06/24/21 22:10 Last Admin: 05/25/21 23:47 Dose: 40 mg Documented by: [id number] Fluticasone/Vilanterol (Fluticasone/Vilanterol 200/25mcg 14 Puffs/Inhaler) 1 puffs INH DAILY JACKELINE Stop: 06/24/21 22:10 Last Admin: 05/25/21 23:47 Dose: 1 puffs Documented by: [id number] Sodium Chloride (Nss 1000ml) 1,000 mls @ 125 mls/hr IV .Q8H JACKELINE Stop: 05/26/21 14:10 Last Admin: 05/25/21 23:49 Dose: 125 mls/hr Documented by: [id number] Melatonin (Melatonin 3 Mg Tab) 3 mg PO HS JACKELINE Stop: 06/24/21 22:10 Last Admin: 05/25/21 23:46 Dose: 3 mg Documented by: [id number] Montelukast Sodium (Montelukast Sodium 10 Mg Tablet) 10 mg PO QPM JACKELINE Stop: 06/24/21 22:10 Last Admin: 05/25/21 23:47 Dose: 10 mg Documented by: [id number] Discontinued Medications Sodium Chloride (Nss 1000ml) 1,000 mls @ 999 mls/hr IV .Q1H1M ONE Stop: 05/25/21 17:17 Last Infusion: 05/25/21 17:59 Dose: 0 mls/hr Documented by: [id number] Admin: 05/25/21 16:21 Dose: 999 mls/hr Documented by: [id number] Sodium Chloride (Nss 1000ml) 1,000 mls @ 999 mls/hr IV .Q1H1M ONE Stop: 05/25/21 18:11 Last Infusion: 05/25/21 22:12 Dose: 0 mls/hr Documented by: [id number] Admin: 05/25/21 17:28 Dose: 999 mls/hr Documented by: [id number] Sodium Chloride (Nss) 500 mls @ 999 mls/hr IV .Q31M ONE Stop: 05/25/21 17:41 Last Infusion: 05/25/21 18:00 Dose: 0 mls/hr Documented by: [id number] Admin: 05/25/21 17:28 Dose: 999 mls/hr Documented by: [id number] Piperacillin Sod/Tazobactam Sod (Zosyn) 4.5 gm in 120 mls @ 240 mls/hr IV NOW ONE Stop: 05/25/21 17:41 Last Infusion: 05/25/21 17:59 Dose: 0 mls/hr Documented by: [id number] Admin: 05/25/21 17:28 Dose: 240 mls/hr Documented by: [id number] Miscellaneous Information (Consult Pharmacy) 1 ea N/A NOW STA Stop: 05/25/21 19:06 Last Admin: 05/25/21 23:47 Dose: 1 ea Documented by: [id number] Imaging Data Radiologist's Impression: Chest X-Ray 05/25/21 16:18 XR chest 1V portable CLINICAL HISTORY: weakness. Evaluate cardiopulmonary status COMPARISON STUDY: 05/25/2020 TECHNIQUE: 1 view of the chest FINDINGS: Single frontal view of the chest demonstrates the cardiomediastinal silhouette to be within normal limits. The lungs are clear of alveolar opacities. There is no evidence for pleural effusion. There is no evidence for vascular congestion. There is no acute osseous pathology. IMPRESSION: 1. No acute cardiopulmonary disease. ACT 112: Negative or not required by law. Electronically signed by: Homer Rae M.D. 05/25/2021 4:50 PM Discharge Plan Visit Data Chief Complaint: Hypotension Stated Complaint: low blood pressure, 80/?, sent from pre-admiss'n ED Provider: Jah Shultz Discharge Problem: Acute hypotension, Lactic acidosis Patient Disposition: Admitted As Inpatient Discharge Instructions Interventions: ED Discharge Assessment Last Done: 05/25/21 22:00
[2021-05-25 16:41] LABS: Basophils # (auto) 0.02 K/uL (0-0.2); Basophils % (auto) 0.3 %; Eosinophils # (auto) 0.23 K/uL (0-0.5); Eosinophils % (auto) 3.3 %; Hemoglobin 13.3 g/dL (14.0-18.0); Immature Granulocytes # (auto) 0.01 K/uL (0.00-0.02); Immature Granulocytes % (auto) 0.1 %; Lymphocytes # (auto) 1.77 K/uL (1.2-3.4); Lymphocytes % (auto) 25.2 %; Mean Corpuscular Hemoglobin 29.3 pg (25-34); Mean Corpuscular Hgb Conc 32.4 g/dL (32-36); Mean Corpuscular Volume 90.3 fL (80-100); Mean Platelet Volume 9.1 fL (7.4-10.4); Monocytes # (auto) 0.79 K/uL (0.11-0.59); Monocytes % (auto) 11.2 %; Neutrophils # (auto) 4.21 K/uL (1.4-6.5); Neutrophils % (auto) 59.9 %; Platelet Count 295 K/uL (130-400); RDW Coefficient of Variation 13.2 % (11.5-14.5); RDW Standard Deviation 43.5 fL (36.4-46.3); Red Blood Count 4.54 M/uL (4.7-6.1); White Blood Count 7.03 K/uL (4.8-10.8)
--- NOTE | 2021-05-25 16:52 | XRay Report ---
XR chest 1V portable CLINICAL HISTORY: weakness. Evaluate cardiopulmonary status COMPARISON STUDY: 05/25/2020 TECHNIQUE: 1 view of the chest FINDINGS: Single frontal view of the chest demonstrates the cardiomediastinal silhouette to be within normal li mits. The lungs are clear of alveolar opacities. There is no evidence for pleural effusion. There is no evidence for vascular congestion. There is no acute osseous pathology. IMPRESSION: 1. No acute cardiopulmonary disease. ACT 112: Negative or not required by law. Electronically signed by: Homer Rae M.D. 05/25/2021 4:50 PM
[2021-05-25 17:06] LABS: Alanine Aminotransferase 11 U/L (7-52); Albumin Level 4.3 gm/dl (3.4-5.0); Alkaline Phosphatase 93 U/L (34-104); Anion Gap 9 (3-11); Aspartate Aminotransferase 17 U/L (13-39); BUN Creatinine Ratio 18.9 (10-20); Bilirubin Direct 0.1 mg/dl (0-0.2); Bilirubin,Total 0.8 mg/dl (0.2-1.0); Blood Urea Nitrogen 24 mg/dl (6-23); Calcium 9.8 mg/dl (8.5-10.1); Carbon Dioxide 23 mmol/L (21-32); Chloride 104 mmol/L (98-107); Creatinine Clr Calc Pharmacy 59.1 ml/min; Est GFR (African American) 62.3 ml/min; Est GFR (Non-African American) 53.8 ml/min; Glucose 137 mg/dl (70-99(Fasting)); Magnesium 2.2 mg/dl (1.7-2.4); Potassium 4.2 mmol/L (3.5-5.1); Sodium 136 mmol/L (136-145); Total Protein 6.9 gm/dl (6.0-8.3)
[2021-05-25 17:08] LABS: Troponin I < 0.03 ng/ml (0-0.04)
[2021-05-25] MEDS ORDERED: SODIUM CHLORIDE 0.9% 500 ML IV ONE (17:11)
[2021-05-25] MEDS ORDERED: PIPERACILLIN/TAZOBACTAM 4.5 GM/120 ML BAG IV ONE (17:12)
[2021-05-25] MEDS ORDERED: PIPERACILL/TAZOBAC CONSULT ACTIVE PRN (17:12)
[2021-05-25 18:03] LABS: Appearance Urine Clear (Clear); Bacteria Urine Automated Negative (Negative); Bilirubin Urine Negative (Negative); Blood Urine Negative (Negative); Color Urine Yellow; Epithelial Cell Urine Auto >30 /lpf (0-5); Glucose Urine UA Negative (Negative); Ketones Urine Negative (Negative); Leukocyte Esterase Urine Trace (Negative); Nitrite Urine Negative (Negative); RBC Urine Automated 0-4 /hpf (0-4); Specific Gravity Urine 1.013 (1.000-1.030); Urobilinogen Urine Negative (Negative); pH Urine 7.5 (4.5-7.5)
[2021-05-25 18:15] LABS: Protein Urine 1+ (Negative)
--- NOTE | 2021-05-25 18:38 | History & Physical Report ---
Date of Service May 25, 2021 Assessment & Plan (1) Hypotension: Plan: Hypotension Likely Multifactorial: HCTZ use, Poor oral fluid intake due to bladder issues Lactic acidosis No clear source of infection Chest x-ray showed no acute cardiopulmonary disease Urine analysis likely contaminated sample Blood cultures obtained Currently on IV fluids Hold lisinopril, HCTZ for now Empirically started on Zosyn Trend lactate levels Hypothyroidism TSH 0.198 Decrease levothyroxine to 125 mcg daily Asthma No signs of exacerbation Continue home inhalers DM II HbA1C: 5.9 on 05/02/21 Diet controlled Consider ISS if needed Monitor sleep apnea currently not on CPAP Lumbar spinal stenosis with neurogenic claudication Pain Control PT/OT Hyperlipidemia on Statin Anxiety and depression Continue home meds H/O prostate cancer S/P radiation DVT Px: Lovenox SQ Code Status Full Code Disposition PT/OT prior to discharge History of Present Illness Chief Complaint: Generalized weakness Primary Care Provider: Patience Romero MD Patient is a 80-year-old male with history of asthma, diabetes mellitus-blood control, hypothyroidism, sleep apnea-currently not on CPAP, lumbar spinal stenosis with neurogenic claudication, hyperlipidemia, anxiety and depression, hypertension, H/O prostate cancer S/P radiation and other medical problems presents for preop evaluation and was found to be hypotensive. Patient states that he was planned for lumbar surgery by Dr. Duckworht on June 15 and was here for preop evaluation. Patient states that his blood pressure has been running on lower side lately and one of his home antihypertensives was discontinued by his PCP. He currently takes lisinopril and HCTZ for blood pressure. He was found to be hypotensive in 60s and so sent to ED for further evaluation. Patient states that he had a peak lunch today and felt very tired after lunch. He reports that he did not take his morning medications. Reports having mid to lower back pain radiating to right lower extremity, 2/10 intensity. He admits to not drinking enough water lately due to having overactive bladder. Denies any history of chest pain, SOB, dizziness, pedal edema, cough, wheezing, fever, chills, fall, headache, change in vision, nausea, vomiting, abdominal pain, diarrhea, change in appetite, dysuria, recent change in medications. His blood pressure improved after receiving IV fluids while in ED. Lactate elevated at 2.1. Allergies Allergy/AdvReac Type Severity Reaction Status Date / Time tramadol AdvReac Intermediate double Verified 05/25/21 18:33 vision Home Medications Medication Instructions Recorded Confirmed Type albuterol sulfate 90 mcg/actuation 2 puff INHALATION Q4H PRN 02/23/18 05/25/21 History aerosol inhaler (Ventolin HFA) atorvastatin 40 mg tablet 40 mg PO QPM 02/23/18 05/25/21 History fluticasone 250 mcg-salmeterol 50 1 inh INHALATION BID 02/23/18 05/25/21 History mcg/dose blistr powdr for inhalation (Advair Diskus) hydrochlorothiazide 12.5 mg capsule 12.5 mg PO QAM 02/23/18 05/25/21 History montelukast 10 mg tablet 10 mg PO QPM 02/23/18 05/25/21 History (Singulair) lisinopril 5 mg tablet 5 mg PO QAM 10/08/19 05/25/21 History melatonin 5 mg tablet 5 mg PO HS 10/08/19 05/25/21 History rizatriptan 10 mg tablet (Maxalt) 10 mg PO DIRECTED PRN 10/08/19 05/25/21 History benzonatate 100 mg capsule 100 mg PO TID PRN 05/25/20 05/25/21 History celecoxib 200 mg capsule 200 mg PO QAM 05/25/20 05/25/21 History levothyroxine 150 mcg tablet 150 mcg PO QAM 05/25/20 05/25/21 History sertraline 50 mg tablet 50 mg PO DAILY 05/25/20 05/25/21 History tiotropium bromide 2.5 2 puff INHALATION DAILY 05/25/20 05/25/21 History mcg/actuation mist for inhalation (Spiriva Respimat) gabapentin 100 mg capsule 100 mg PO QAM 05/21/21 05/25/21 History trospium 20 mg tablet 20 mg PO BID 05/21/21 05/25/21 History Past Med/Surg History Medical History AAA (abdominal aortic aneurysm) LAST CHECKED 1 YEAR AGO Anxiety and depression Asthma last rescue inhaler several days prior to PAT visit BPH (benign prostatic hyperplasia) URINARY RETENTION>HAS DONE SELF CATH IN PAST "RECENLTY HAVING TROUBLE GETTING THE CATHETER IN" Chronic back pain Diabetes mellitus, type II Diet controlled Foot drop LEFT (WEARS BRACE) Hearing deficit History of kidney stones History of prostate cancer 2000 - seed placement, external radiation HLD (hyperlipidemia) HTN (hypertension) controlled, stable per pt Hx of dizziness Hypothyroidism Migraine Non-occlusive coronary artery disease No stents Obesity MARA (obstructive sleep apnea) DOES NOT USE DEVICE Osteoarthritis Posterior reversible encephalopathy syndrome HOSPITALIZED AT [facility] 05/2020>REASON FOR FOOT DROP/DIZZINESS CONT. (NO NEUROLOGIST CURRENTLY) Surgical History Fusion of spine LUMBAR History of anesthesia reaction HEADACHE - cleared up after 30 minutes History of appendectomy History of cardiac cath 11/2017 - mild luminal irregularities of LAD & L Cx, EF: 60% - [id number] History of colonoscopy History of tooth extraction History of total hip arthroplasty LEFT/RT Family History Grandmother (Paternal) Family history of diabetes mellitus Other Coronary heart disease No family history of adverse response to anesthesia Social History Smoking Status: Former smoker Second Hand Exposure: No; Do You Dip or Chew Tobacco: No; Hx Alcohol Use: Yes Alcohol type: wine Hx Substance Use: No Preferred Language: Faroese Communication Ability: Effective 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 Mate Required: No Beliefs That Will Affect Care: None marital status: Current Living Situation: Spouse Other Information That Helps Us Care for You: No Feels Safe at Home: Yes Safety Concerns: Feels Safe At This Time Assistive Devices: Brace/Splint/Immobilizer and Walker Assistive Devices Comment: back & foot brace Review of Systems Review of Systems: All systems reviewed & are unremarkable except as noted in Subjective Physical Exam Physical Exam: Physical Exam: Vitals signs as noted above General Appearance:Moderately built and nourished, no apparent distress Head: normocephalic, Atraumatic Eyes: normal inspection, EOMI Neck: supple, Trachea midline Respiratory/Chest: Decreased breath sounds, CTA, No accessory muscle use Cardiovascular: S1, S2, No murmur Abdomen/GI:Soft, Non tender, Bowel sounds present Extremities/Musculoskeletal:normal inspection, no edema Neurologic/Psych:AAOX3, grossly no focal neurological deficits Skin: normal color, warm Results & Data Results & Data ([facility]) Vital Signs (Past 12 Hours) Vital Signs Temp Pulse Pulse Resp BP BP Pulse Ox 05/25/21 16:49 94/55 L 05/25/21 16:29 65 15 84/52 L 05/25/21 16:21 64 16 78/43 L 95 05/25/21 15:56 36.9 C 67 18 64/47 L 94 Laboratory Results Short CBC 05/25/21 Range/Units 16:20 WBC 7.03 (4.8-10.8) K/uL Hgb 13.3 L (14.0-18.0) g/dL Hct 41.0 L (42-52) % Plt Count 295 (130-400) K/uL BMP 05/25/21 16:20 Sodium 136 Potassium 4.2 Chloride 104 Carbon Dioxide 23 BUN 24 H Creatinine 1.27 Glucose 137 H Calcium 9.8 Cardiac Enzymes 05/25/21 Range/Units 16:20 Troponin I < 0.03 (0-0.04) ng/ml Liver Function 05/25/21 Range/Units 16:20 Total Bilirubin 0.8 (0.2-1.0) mg/dl Direct Bilirubin 0.1 (0-0.2) mg/dl AST 17 (13-39) U/L ALT 11 (7-52) U/L Alkaline Phosphatase 93 (34-104) U/L Albumin 4.3 (3.4-5.0) gm/dl Urine 05/25/21 Range/Units 17:40 Urine Color Yellow Urine Appearance Clear (Clear) Urine pH 7.5 (4.5-7.5) Ur Specific Rebuck 1.013 (1.000-1.030) Urine Protein 1+ H (Negative) Urine Glucose (UA) Negative (Negative) Diagnostic Findings CXR:No acute cardiopulmonary disease. ECG Additional Comments: EKG: Normal sinus rhythm, left axis deviation, QTC 445.
[2021-05-25] MEDS ORDERED: CONSULT PHARMACY STA (19:05)
[2021-05-25] MEDS ORDERED: ONDANSETRON INJ 2 MG/ML 2 ML VIAL IV PRN (22:11)
[2021-05-25] MEDS ORDERED: ALBUTEROL HFA 8 GM INHALER INH PRN (22:11)
[2021-05-25] MEDS ORDERED: POLYETHYLENE (MIRALAX) 17 GM PACK PO PRN (22:11)
[2021-05-25] MEDS: MELATONIN 3 MG TAB PO SCH (23:46)
[2021-05-25] MEDS: FLUTICASONE/VILANTEROL 200/25MCG 14 PUFFS/INHALER INH SCH (23:47)
[2021-05-25] MEDS: MONTELUKAST SODIUM 10 MG TABLET PO SCH (23:47)
[2021-05-25] MEDS: ATORVASTATIN 40 MG TAB PO SCH (23:47)
[2021-05-25] MEDS: SODIUM CHLORIDE 0.9% 1000ML 1,000 ML IV SCH (23:49)
[2021-05-26] MEDS: PIPERACILLIN/TAZOBACTAM 3.375 GM in DEXTROSE 5% 100 ML IV SCH ×4 (00:18→23:52)
[2021-05-26] MEDS: [UNRECOGNIZED DRUG - REMARK] SCH ×4 (00:25→23:58)
[2021-05-26] MEDS: LEVOTHYROXINE SODIUM 125 MCG TABLET PO SCH (05:58)
[2021-05-26] MEDS: SODIUM CHLORIDE 0.9% 1000ML 1,000 ML IV SCH (07:26)
[2021-05-26 07:54] LABS: Hematocrit (blood only) 36.2 % (42-52); Hemoglobin 11.6 g/dL (14.0-18.0); Mean Corpuscular Hemoglobin 29.1 pg (25-34); Mean Platelet Volume 8.8 fL (7.4-10.4); Platelet Count 233 K/uL (130-400); RDW Coefficient of Variation 13.3 % (11.5-14.5); RDW Standard Deviation 44.1 fL (36.4-46.3); Red Blood Count 3.98 M/uL (4.7-6.1); White Blood Count 5.51 K/uL (4.8-10.8)
[2021-05-26] MEDS: ENOXAPARIN INJ 40 MG/0.4 ML SYR SQ SCH (08:15)
[2021-05-26] MEDS: FLUTICASONE/VILANTEROL 200/25MCG 14 PUFFS/INHALER INH SCH (08:16)
[2021-05-26] MEDS: SERTRALINE HCL 50 MG TABLET PO SCH (08:16)
[2021-05-26] MEDS: GABAPENTIN 100 MG CAP PO SCH (08:16)
[2021-05-26] MEDS: UMECLIDINIUM BROMIDE 62.5MCG/BLISTER 7 PUFFS/INHALER INH SCH (08:17)
[2021-05-26 08:31] LABS: BUN Creatinine Ratio 24.2 (10-20); Creatinine Clr Calc Pharmacy 77.2 ml/min; Est GFR (African American) 88.5 ml/min; Est GFR (Non-African American) 76.4 ml/min; Potassium 3.9 mmol/L (3.5-5.1)
[2021-05-26 08:34] LABS: Thyroid Stimulating Hormone 0.128 uIu/ml (0.300-4.500)
[2021-05-26 09:06] LABS: T4 Free Thyroxine 1.32 ng/dl (0.61-1.60)
[2021-05-26] MEDS ORDERED: hydrALAZINE HCL 20 MG/ML VIAL IV PRN (16:41)
--- NOTE | 2021-05-26 16:49 | Hospitalist Progress Note ---
Date of Service May 26, 2021 Assessment & Plan (1) Acute hypotension: Plan: per admitting service notes with addendum: Hypotension Likely Multifactorial: HCTZ use, Poor oral fluid intake due to bladder issues Chest x-ray showed no acute cardiopulmonary disease Urine analysis likely contaminated sample Blood cultures : pending given 2.5 L IV NSS yesterday Held lisinopril, HCTZ BP improving Empirically started on Zosyn lactic acid normalized afebrile monitor BP closely Hypothyroidism TSH 0.198 Decrease levothyroxine to 125 mcg daily Asthma No signs of exacerbation Continue home inhalers DM II HbA1C: 5.9 on 05/02/21 Diet controlled BSG 109-113 Consider ISS if needed Monitor sleep apnea currently not on CPAP Lumbar spinal stenosis with neurogenic claudication Pain Control PT/OT Hyperlipidemia on Statin Anxiety and depression Continue home meds H/O prostate cancer S/P radiation follows with urology for urinary incontinence DVT Px: Lovenox SQ Code Status Full Code Disposition PT/OT prior to discharge Admission and Anticipated Discharge Date Admission Date: May 25, 2021 Subjective ff up for hypotension, etc seen resting in bed, comfortable states he feels improved overall no dizziness, weakness ambulated in the halls today, no problem no chest pain, dyspnea, palpitations, cough, fever/chills has urinary incontinence - chronic as per patient no other symptoms Review of Systems Review of Systems: all noted and negative except for above Physical Exam Physical Exam: General- oriented x 3, not in distress, speaks in sentences with no effort or accessory muscle use Eyes- anicteric Neck- no JVD Lungs- clear breath sounds bilaterally, no rales/wheezes Heart- normal rate, regular rhythm; no murmurs Abdomen- normal bowel sounds, nondistended, soft, nontender Extremities- no pretibial edema, no calf tenderness Neuro- alert, oriented x 3; no gross focal neurologic deficits Skin- warm & dry Results & Data Results & Data ([facility]) Vital Signs (Past 12 Hours) Vital Signs Temp Pulse Pulse Resp BP BP Pulse Ox 05/26/21 15:32 36.8 C 75 16 145/82 H 94 05/26/21 15:17 91 H 05/26/21 12:30 05/26/21 11:31 36.6 C 80 19 128/76 94 05/26/21 08:09 36.4 C L 63 16 120/72 93 05/26/21 07:13 59 L Pulse Ox 05/26/21 15:32 05/26/21 15:17 05/26/21 12:30 96 05/26/21 11:31 05/26/21 08:09 05/26/21 07:13 all noted and reviewed including below
[2021-05-26] MEDS: ACETAMINOPHEN 325 MG TAB PO PRN (19:34)
[2021-05-26] MEDS: MELATONIN 3 MG TAB PO SCH (20:46)
[2021-05-26] MEDS: ATORVASTATIN 40 MG TAB PO SCH (20:46)
[2021-05-26] MEDS: MONTELUKAST SODIUM 10 MG TABLET PO SCH (20:46)
[2021-05-27] MEDS: LEVOTHYROXINE SODIUM 125 MCG TABLET PO SCH (05:59)
[2021-05-27] MEDS: [UNRECOGNIZED DRUG - REMARK] SCH ×2 (07:17→15:15)
[2021-05-27] MEDS: UMECLIDINIUM BROMIDE 62.5MCG/BLISTER 7 PUFFS/INHALER INH SCH (08:33)
[2021-05-27] MEDS: GABAPENTIN 100 MG CAP PO SCH (08:33)
[2021-05-27] MEDS: FLUTICASONE/VILANTEROL 200/25MCG 14 PUFFS/INHALER INH SCH (08:33)
[2021-05-27] MEDS: ENOXAPARIN INJ 40 MG/0.4 ML SYR SQ SCH (08:33)
[2021-05-27] MEDS: SERTRALINE HCL 50 MG TABLET PO SCH (08:33)
[2021-05-27] MEDS: PIPERACILLIN/TAZOBACTAM 3.375 GM in DEXTROSE 5% 100 ML IV SCH ×2 (08:34→15:58)
[2021-05-27] MEDS: lisinopril 5 MG TAB PO SCH (08:57)
[2021-05-27] MEDS: ACETAMINOPHEN 325 MG TAB PO PRN ×2 (14:01→21:21)
--- NOTE | 2021-05-27 14:33 | Hospitalist Progress Note ---
Date of Service May 27, 2021 Assessment & Plan (1) Acute hypotension: Plan: per admitting service notes with addendum: Hypotension Likely Multifactorial: HCTZ use, Poor oral fluid intake due to bladder issues Chest x-ray showed no acute cardiopulmonary disease Urine analysis likely contaminated sample Blood cultures : negative so far given 2.5 L IV NSS on admission BP elevated this morning usual Lisinopril ordered HCTZ On hold on empiric Zosyn Day 2 lactic acid normalized afebrile d/c antibiotics tomorrow if cultures negative Hypothyroidism TSH 0.198 Decrease levothyroxine to 125 mcg daily Asthma No signs of exacerbation Continue home inhalers DM II HbA1C: 5.9 on 05/02/21 Diet controlled BSG 116-153 Consider ISS if needed Monitor sleep apnea currently not on CPAP Lumbar spinal stenosis with neurogenic claudication Pain Control PT/OT Hyperlipidemia on Statin Anxiety and depression Continue home meds H/O prostate cancer S/P radiation follows with urology for urinary incontinence DVT Px: Lovenox SQ Code Status Full Code Disposition PT/OT lives at home with his Admission and Anticipated Discharge Date Admission Date: May 25, 2021 Subjective ff up for hypotension, dehydration, etc seen resting in bed, comfortable in good spirits states he continues to feel improved no chest pain, dyspnea, palpitations, dizziness ambulating in the room with no problems no fever/chills has mild chronic back pain no other new symptoms Review of Systems Review of Systems: all noted and negative except for above Physical Exam Physical Exam: General- oriented x 3, not in distress, speaks in sentences with no effort or accessory muscle use Eyes- anicteric Neck- no JVD Lungs- clear breath sounds bilaterally Heart- normal rate, regular rhythm; no murmurs Abdomen- normal bowel sounds, nondistended, soft, nontender Extremities- no pretibial edema, no calf tenderness Neuro- alert, oriented x 3; no gross focal neurologic deficits Skin- warm & dry Results & Data Results & Data ([facility]) Vital Signs (Past 12 Hours) Vital Signs Temp Pulse Pulse Resp BP BP Pulse Ox 05/27/21 11:08 36.4 C L 70 18 120/72 95 05/27/21 09:06 70 05/27/21 06:40 36.4 C L 62 20 177/94 H 96 05/27/21 04:00 36.3 C L 47 L 20 126/75 94 all noted and reviewed including below
[2021-05-27] MEDS: MONTELUKAST SODIUM 10 MG TABLET PO SCH (21:21)
[2021-05-27] MEDS: MELATONIN 3 MG TAB PO SCH (21:22)
[2021-05-27] MEDS: ATORVASTATIN 40 MG TAB PO SCH (21:22)
[2021-05-28] MEDS: [UNRECOGNIZED DRUG - REMARK] SCH ×2 (00:16→07:02)
[2021-05-28] MEDS: PIPERACILLIN/TAZOBACTAM 3.375 GM in DEXTROSE 5% 100 ML IV SCH (00:16)
[2021-05-28] MEDS: LEVOTHYROXINE SODIUM 125 MCG TABLET PO SCH (06:08)
[2021-05-28] MEDS: SERTRALINE HCL 50 MG TABLET PO SCH (08:15)
[2021-05-28] MEDS: ENOXAPARIN INJ 40 MG/0.4 ML SYR SQ SCH (08:15)
[2021-05-28] MEDS: lisinopril 5 MG TAB PO SCH (08:15)
[2021-05-28] MEDS: GABAPENTIN 100 MG CAP PO SCH (08:15)
[2021-05-28] MEDS: UMECLIDINIUM BROMIDE 62.5MCG/BLISTER 7 PUFFS/INHALER INH SCH (08:15)
[2021-05-28] MEDS: FLUTICASONE/VILANTEROL 200/25MCG 14 PUFFS/INHALER INH SCH (08:15)
--- NOTE | 2021-05-28 09:21 | Hospitalist Progress Note ---
Date of Service May 28, 2021 Assessment & Plan (1) Acute hypotension: Plan: per admitting service notes with addendum: Hypotension, Resolved Likely Multifactorial: HCTZ use, Poor oral fluid intake due to urinary incontinence Chest x-ray showed no acute cardiopulmonary disease Urine analysis likely contaminated sample Blood cultures : negative given 2.5 L IV NSS on admission Hypotension gradually improved with IV fluids and holding lisinopril and HCTZ usual Lisinopril 5 mg p.o. daily ordered PCP this morning 133/78 Underlying infection ruled out Blood cultures negative Empiric Zosyn discontinued, remains afebrile, no overt signs of infection Discharge today Resume usual lisinopril 5 mg p.o. daily Discontinue HCTZ Follow-up with PCP within 1 week We will also arrange home health services for the patient Hypothyroidism TSH 0.198 Decrease levothyroxine to 125 mcg daily Repeat thyroid function test in 4 to 6 weeks Asthma Not in exacerbation Continue home inhalers DM II HbA1C: 5.9 on 05/02/21 Diet controlled BSG 109 sleep apnea currently not on CPAP Lumbar spinal stenosis with neurogenic claudication Has chronic mild low back pain Scheduled for surgery with Dr. Duckworth Hyperlipidemia on Statin Anxiety and depression Continue home meds H/O prostate cancer S/P radiation follows with urology for urinary incontinence DVT Px: Lovenox SQ Code Status Full Code Disposition PT/OT: Recommending discharge home Discharge home today With home health services Follow-up with PCP in 1 week plan of care discussed with patient in detail and at length all questions answered He is understanding, agreeable, comfortable with the plan of care Admission and Anticipated Discharge Date Admission Date: May 25, 2021 Subjective ff up for hypotension, etc. Seen sitting up in bed, comfortable, in good spirits States he feels much better overall No dizziness, chest pain, palpitations, shortness of breath Has some mild weakness of the legs when walking but no syncope/presyncope, feels stable when walking Also performed PT/OT, tolerated well, recommend to discharge home As chronic mild lower back pain, no tingling or numbness No other symptoms States he is ready for discharge today Review of Systems Review of Systems: all noted and negative except for above Physical Exam Physical Exam: General- oriented x 3, not in distress, speaks in sentences with no effort or accessory muscle use Eyes- anicteric Neck- no JVD Lungs- clear breath sounds, no crackles, no wheezing bilaterally Good air entry bilaterally Heart- normal rate, regular rhythm; no murmurs Abdomen- normal bowel sounds, nondistended, soft, nontender Extremities- no pretibial edema, no calf tenderness Neuro- alert, oriented x 3; no gross focal neurologic deficits Skin- warm & dry Results & Data Results & Data ([facility]) Vital Signs (Past 12 Hours) Vital Signs Temp Pulse Pulse Pulse Resp BP Pulse Ox 05/28/21 07:48 36.5 C 53 L 20 133/78 93 05/28/21 06:55 51 L 05/28/21 00:17 58 L 05/27/21 23:02 36.8 C 58 L 18 121/70 94 all noted and reviewed including below
--- NOTE | 2021-05-28 09:43 | Discharge Summary ---
Date of Service May 28, 2021 Admission HPI Per Admitting Provider Patient is a 80-year-old male with history of asthma, diabetes mellitus-blood control, hypothyroidism, sleep apnea-currently not on CPAP, lumbar spinal stenosis with neurogenic claudication, hyperlipidemia, anxiety and depression, hypertension, H/O prostate cancer S/P radiation and other medical problems presents for preop evaluation and was found to be hypotensive. Patient states that he was planned for lumbar surgery by Dr. Duckworth on June 15 and was here for preop evaluation. Patient states that his blood pressure has been running on lower side lately and one of his home antihypertensives was discontinued by his PCP. He currently takes lisinopril and HCTZ for blood pressure. He was found to be hypotensive in 60s and so sent to ED for further evaluation. Patient states that he had a peak lunch today and felt very tired after lunch. He reports that he did not take his morning medications. Reports having mid to lower back pain radiating to right lower extremity, 2/10 intensity. He admits to not drinking enough water lately due to having overactive bladder. Denies any history of chest pain, SOB, dizziness, pedal edema, cough, wheezing, fever, chills, fall, headache, change in vision, nausea, vomiting, abdominal pain, diarrhea, change in appetite, dysuria, recent change in medications. His blood pressure improved after receiving IV fluids while in ED. Lactate elevated at 2.1. Admission Exam (Per Admitting) Constitutional Physical Exam: Vitals signs as noted above General Appearance:Moderately built and nourished, no apparent distress Head: normocephalic, Atraumatic Eyes: normal inspection, EOMI Neck: supple, Trachea midline Respiratory/Chest: Decreased breath sounds, CTA, No accessory muscle use Cardiovascular: S1, S2, No murmur Abdomen/GI:Soft, Non tender, Bowel sounds present Extremities/Musculoskeletal:normal inspection, no edema Neurologic/Psych:AAOX3, grossly no focal neurological deficits Skin: normal color, warm Discharge Data Consultations 05/25/21 18:24 ED Decision to Admit Stat Procedures Performed XR chest 1V portable CLINICAL HISTORY: weakness. Evaluate cardiopulmonary status COMPARISON STUDY: 05/25/2020 TECHNIQUE: 1 view of the chest FINDINGS: Single frontal view of the chest demonstrates the cardiomediastinal silhouette to be within normal limits. The lungs are clear of alveolar opacities. There is no evidence for pleural effusion. There is no evidence for vascular congestion. There is no acute osseous pathology. IMPRESSION: 1. No acute cardiopulmonary disease. ACT 112: Negative or not required by law. Hospital Course (1) Acute hypotension: per admitting service notes with addendum: Hypotension, Resolved Likely Multifactorial: HCTZ use, Poor oral fluid intake due to urinary incontinence Chest x-ray showed no acute cardiopulmonary disease Urine analysis likely contaminated sample Blood cultures : negative given 2.5 L IV NSS on admission Hypotension gradually improved with IV fluids and holding lisinopril and HCTZ usual Lisinopril 5 mg p.o. daily ordered PCP this morning 133/78 Underlying infection ruled out Blood cultures negative Empiric Zosyn discontinued, remains afebrile, no overt signs of infection Discharge today Resume usual lisinopril 5 mg p.o. daily Discontinue HCTZ Follow-up with PCP within 1 week We will also arrange home health services for the patient Hypothyroidism TSH 0.198 Decrease levothyroxine to 125 mcg daily Repeat thyroid function test in 4 to 6 weeks Asthma Not in exacerbation Continue home inhalers DM II HbA1C: 5.9 on 05/02/21 Diet controlled BSG 109 Sleep apnea currently not on CPAP Lumbar spinal stenosis with neurogenic claudication Has chronic mild low back pain Scheduled for surgery with Dr. Duckworth Hyperlipidemia on Statin Anxiety and depression Continue home meds H/O prostate cancer S/P radiation follows with urology for urinary incontinence DVT Px: Lovenox SQ Code Status Full Code Disposition PT/OT: Recommending discharge home Discharge home today With home health services Follow-up with PCP in 1 week plan of care discussed with patient in detail and at length all questions answered He is understanding, agreeable, comfortable with the plan of care
== END 2021-05-28 13:05 | disposition home or self-care (01) | DRG 315 ==
LOC: ED 15:51 → 2N 19:13 → SUATTDRO 19:13 → 2N 22:00

== ENCOUNTER 2021-07-24 09:49 | Inpatient (IN) ==
--- NOTE | 2021-05-21 15:50 | PAT Medication Instructions ---
Medication Instructions Date of Service May 21, 2021 Home Medications albuterol sulfate 90 mcg/actuation aerosol inhaler (Ventolin HFA) 2 puff INHALATION Q4H PRN atorvastatin 40 mg tablet 40 mg PO QPM fluticasone 250 mcg-salmeterol 50 mcg/dose blistr powdr for inhalation (Advair Diskus) 1 inh INHALATION BID hydrochlorothiazide 12.5 mg capsule 12.5 mg PO QAM montelukast 10 mg tablet (Singulair) 10 mg PO QPM lisinopril 5 mg tablet 5 mg PO QAM melatonin 5 mg tablet 5 mg PO HS rizatriptan 10 mg tablet (Maxalt) 10 mg PO benzonatate 100 mg capsule 100 mg PO TID PRN celecoxib 200 mg capsule 200 mg PO QAM levothyroxine 150 mcg tablet 150 mcg PO QAM sertraline 50 mg tablet 50 mg PO DAILY tiotropium bromide 2.5 mcg/actuation mist for inhalation (Spiriva Respimat) 2 puff INHALATION DAILY gabapentin 100 mg capsule 100 mg PO QAM trospium 20 mg tablet 20 mg PO BID ASK your surgeon for instructions celecoxib 200 mg capsule 200 mg PO QAM DO NOT take the morning of surgery hydrochlorothiazide 12.5 mg capsule 12.5 mg PO QAM lisinopril 5 mg tablet 5 mg PO QAM benzonatate 100 mg capsule 100 mg PO TID PRN trospium 20 mg tablet 20 mg PO BID Take morning of surgery With a small sip of water, OTHERWISE NOTHING TO EAT OR DRINK AFTER MIDNIGHT: albuterol sulfate 90 mcg/actuation aerosol inhaler (Ventolin HFA) 2 puff INHAL ATION Q4H PRN(use if needed; please bring with you to hospital day of surgery if possible) fluticasone 250 mcg-salmeterol 50 mcg/dose blistr powdr for inhalation (Advair Diskus) 1 inh INHALATION BID rizatriptan 10 mg tablet (Maxalt) 10 mg PO(if needed) levothyroxine 150 mcg tablet 150 mcg PO QAM sertraline 50 mg tablet 50 mg PO DAILY tiotropium bromide 2.5 mcg/actuation mist for inhalation (Spiriva Respimat) 2 puff INHALATION DAILY gabapentin 100 mg capsule 100 mg PO QAM Take evening before surgery albuterol sulfate 90 mcg/actuation aerosol inhaler (Ventolin HFA) 2 puff INHALATION Q4H PRN(if needed) atorvastatin 40 mg tablet 40 mg PO QPM fluticasone 250 mcg-salmeterol 50 mcg/dose blistr powdr for inhalation (Advair Diskus) 1 inh INHALATION BID montelukast 10 mg tablet (Singulair) 10 mg PO QPM melatonin 5 mg tablet 5 mg PO HS benzonatate 100 mg capsule 100 mg PO TID PRN(if needed) trospium 20 mg tablet 20 mg PO BID Other Notes If you have any questions please call us at [phone] or [phone] or [phone] or [phone]
--- NOTE | 2021-05-25 15:28 | Anesthesiology Consultation ---
Date of Service May 25, 2021 Assessment & Plan (1) Encounter for pre-operative examination: - Awaiting preoperative evaluation by multiple providers due to very poor clinical status requiring ER visit during previous visit. - hypotension: systolic 78/80s in clinic and very slight needle movement. Pt symptomatic with pallor, reported dizziness and tiredness, transported to ER. Shara at surgeon's office made aware and that patient is certainly going to need cardiology, neurology and medical clearance prior to consideration for undergoing surgery. - awaiting cardiology pre-op evaluation. Form completed. - awaiting neurology pre-op evaluation. Form completed. - awaiting PCP pre-op evaluation. Form completed. Pre-op testing: BMP, A1c completed 05/02/2021 acceptable, would need repeated for surgery to be within 60 day interval. Additional surgeon ordered pre-op testing of CBC with diff, coag, TS, UA, EKG and CXR. Will await outcome of ER evaluation/potential admission and outpatient pre-op evaluations. Case will then be reviewed with anesthesiologist once pre-op evaluations above have been completed. Chart Review Chart Review: Pending: Refer to Additional Notes / Consult section and Patient seen in Pre Admission Testing Teaching & Discussion Pre-Anesthesia Teaching/Discussion Notes: Instructed NPO after midnight before surgery, except medications with 15 cc of water. Medication instructions provided according to the [facility] guidelines. History Surgery Operation Date: 06/15/21 09:10 Proposed Procedures p L2-L3 Decompression Fusion, L3-S1 Revision Spinal Cord Monitoring - Salvador Duckworth, DO No wt obtained at PAT clinic, pt in wheelchair. Height/Weight Height: 5 ft 11 in Weight: 104.326 kg Allergies Allergy/AdvReac Type Severity Reaction Status Date / Time tramadol AdvReac Intermediate double Verified 05/25/21 18:33 vision Medications Home Medications Medication Instructions Recorded Confirmed Last Taken albuterol sulfate 90 mcg/actuation 2 puff INHALATION Q4H PRN 02/23/18 05/25/21 11/04/19 06:30 aerosol inhaler (Ventolin HFA) atorvastatin 40 mg tablet 40 mg PO QPM 02/23/18 05/25/21 05/24/21 fluticasone 250 mcg-salmeterol 50 1 inh INHALATION BID 02/23/18 05/25/21 05/25/21 08:00 mcg/dose blistr powdr for inhalation (Advair Diskus) hydrochlorothiazide 12.5 mg capsule 12.5 mg PO QAM 02/23/18 05/25/21 05/25/21 montelukast 10 mg tablet 10 mg PO QPM 02/23/18 05/25/21 05/24/21 (Singulair) lisinopril 5 mg tablet 5 mg PO QAM 10/08/19 05/25/21 05/25/21 melatonin 5 mg tablet 5 mg PO HS 10/08/19 05/25/21 05/24/21 rizatriptan 10 mg tablet (Maxalt) 10 mg PO DIRECTED PRN 10/08/19 05/25/21 11/02/19 14:00 benzonatate 100 mg capsule 100 mg PO TID PRN 05/25/20 05/25/21 Unknown celecoxib 200 mg capsule 200 mg PO QAM 05/25/20 05/25/21 05/25/21 levothyroxine 150 mcg tablet 150 mcg PO QAM 05/25/20 05/25/21 05/25/21 sertraline 50 mg tablet 50 mg PO DAILY 05/25/20 05/25/21 05/25/21 tiotropium bromide 2.5 2 puff INHALATION DAILY 05/25/20 05/25/21 05/25/21 mcg/actuation mist for inhalation (Spiriva Respimat) gabapentin 100 mg capsule 100 mg PO QAM 05/21/21 05/25/21 05/25/21 trospium 20 mg tablet 20 mg PO BID 05/21/21 05/25/21 05/25/21 08:00 Past Medical History Medical History (Updated 05/25/21 @ 16:02 by Greta Coats PA-C) AAA (abdominal aortic aneurysm) LAST CHECKED 1 YEAR AGO Anxiety and depression Asthma last rescue inhaler several days prior to PAT visit BPH (benign prostatic hyperplasia) URINARY RETENTION>HAS DONE SELF CATH IN PAST "RECENLTY HAVING TROUBLE GETTING THE CATHETER IN" Chronic back pain Diabetes mellitus, type II Diet controlled Foot drop LEFT (WEARS BRACE) Hearing deficit History of kidney stones History of prostate cancer 2000 - seed placement, external radiation HLD (hyperlipidemia) HTN (hypertension) controlled, stable per pt Hx of dizziness Hypothyroidism Migraine Non-occlusive coronary artery disease No stents Obesity MARA (obstructive sleep apnea) DOES NOT USE DEVICE Osteoarthritis Posterior reversible encephalopathy syndrome HOSPITALIZED AT [facility] 05/2020>REASON FOR FOOT DROP/DIZZINESS CONT. (NO NEUROLOGIST CURRENTLY) Patient denies h/o stroke, seizures, heart attack, heart failure, blood clots or blood transfusions. Exercise / Class Metabolic Activity III < 4 Walking/Shop/Light housework (SOB with any physical activity per pt) Past Family History Family History Grandmother (Paternal) Family history of diabetes mellitus Other Coronary heart disease No family history of adverse response to anesthesia Past Surgical History Surgical History Fusion of spine LUMBAR History of anesthesia reaction HEADACHE - cleared up after 30 minutes History of appendectomy History of cardiac cath 11/2017 - mild luminal irregularities of LAD & L Cx, EF: 60% - [facility] [employer] [id number] disease-[facility] History of colonoscopy History of tooth extraction History of total hip arthroplasty LEFT/RT Past Anesthesia History No Hx of Anesthesia Complications and No Family Hx of Anesthesia Complications History of PONV No Hx of PONV and No Hx of Motion Sickness Social History Smoking Status: Never smoker Do You Dip or Chew Tobacco: No Hx Alcohol Use: Yes Alcohol type: beer alcohol intake frequency: holidays/special occasions only substance use type: does not use Review of Systems Occasional cough and wheezing, denies change or worsening with chronic asthma, mentions has not been using inhalers as often as recommended. Patient denies chest pain, shortness of breath, dyspnea on exertion, reflux, fever, chills, cough, wheezing, or palpitations. Physical Exam Vital Signs Vitals BP left arm-80/48, right arm-78/48. Patient states BP has been running low in recent months systolic often below 90, adjustments were made to his medication regimen regarding antihypertensives with improvement though persistent positional dizziness. He reports feels mildly dizzy and tired now in clinic, is speaking clearly and coherently without dyspnea. Denies chest discomfort. Patient advised of need for evaluation in ER and he is agreeable, transported to ER. Hilda at ER took report, they will be discussing with pt whom he would like contacted re: family/friends that is being evaluated in ED as is alone at appt today. Shara at surgeon's office made aware and that patient will need cardio, neuro and PCP clearance prior to consideration for surgery. P 77 TEMP not obtained during visit SP02 96 % on RA RESP 15 Physical Patient alert and oriented x 3, speaking clearly and coherently Dentition: intact, missing lower left side and upper right side, one cap and crown front upper and left lower back; denies chipped or loose teeth, implants or bridges Cardiac: regular rate and rhythm, no murmurs noted
[~2021-07-24 09:49] MED LIST changes: -CEFAZOLIN 2000MG 2,000 MG/15 ML SYR IV SCH; +ceFAZolin 2000MG 2,000 MG/15 ML SYR IV SCH
[2021-07-24 10:56] LABS: Partial Thromboplastin Time 27.6 Seconds (21.0-31.0); Prothrombin Time 10.9 Seconds (9.0-12.0)
[2021-07-24] MEDS ORDERED: fentaNYL citrate 100 MCG/2 ML VIAL IV PRN (11:57)
[2021-07-24] MEDS ORDERED: ATROPINE SULFATE 0.1 MG/ML 10ML SYR IV PRN (11:57)
[2021-07-24] MEDS ORDERED: HYDROmorphone INJ 1 MG/ML SYRINGE IV PRN ×2 (11:57→17:41)
[2021-07-24] MEDS ORDERED: ONDANSETRON INJ 2 MG/ML 2 ML VIAL IV PRN ×2 (11:57→17:41)
[2021-07-24] MEDS ORDERED: ePHEDrine sulfate 50 MG/ML AMP IV PRN (11:57)
--- NOTE | 2021-07-24 12:11 | History & Physical Bridge Note ---
Date of Service July 24, 2021 History & Physical Bridge Note I have examined the patient, reviewed the History & Physical and in the interval since the performance of the History & Physical I have noted the following changes of clinical significance: no changes noted
--- NOTE | 2021-07-24 12:12 | History & Physical Report ---
Date of Service July 24, 2021 Assessment & Plan (1) Neurogenic claudication due to lumbar spinal stenosis: Plan: L2-L3 decompression and fusion, L3-S1 revision fusion History of Present Illness Chief Complaint: Back and leg pain Primary Care Provider: Norma Serna MD This is a 80-year-old male well-known to [facility] status with advanced spinal stenosis and here for surgical intervention Allergies Allergy/AdvReac Type Severity Reaction Status Date / Time tramadol AdvReac Intermediate double Verified 07/24/21 10:18 vision Home Medications Medication Instructions Recorded Confirmed Type albuterol sulfate 90 mcg/actuation 2 puff INHALATION Q4H PRN 02/23/18 07/24/21 History aerosol inhaler (Ventolin HFA) atorvastatin 40 mg tablet 40 mg PO QPM 02/23/18 07/24/21 History fluticasone 250 mcg-salmeterol 50 1 inh INHALATION BID 02/23/18 07/24/21 History mcg/dose blistr powdr for inhalation (Advair Diskus) montelukast 10 mg tablet 10 mg PO QPM 02/23/18 07/24/21 History (Singulair) lisinopril 5 mg tablet 5 mg PO QAM 10/08/19 07/24/21 History melatonin 5 mg tablet 5 mg PO HS PRN 10/08/19 07/24/21 History rizatriptan 10 mg tablet (Maxalt) 10 mg PO DIRECTED PRN 10/08/19 07/24/21 History benzonatate 100 mg capsule 100 mg PO TID PRN 05/25/20 07/24/21 History sertraline 50 mg tablet 50 mg PO QAM 05/25/20 07/24/21 History tiotropium bromide 2.5 2 puff INHALATION BID 05/25/20 07/24/21 History mcg/actuation mist for inhalation (Spiriva Respimat) gabapentin 100 mg capsule 200 mg PO QAM 05/21/21 07/24/21 History trospium 20 mg tablet 20 mg PO BID 05/21/21 07/24/21 History levothyroxine 125 mcg tablet 125 mcg PO DAILYBB 30 Days #30 tab 05/28/21 07/24/21 Rx (Synthroid) Past Med/Surg History Medical History (Updated 07/24/21 @ 12:11 by Salvador Duckworth DO) AAA (abdominal aortic aneurysm) LAST CHECKED 1 YEAR AGO Anxiety and depression Asthma last rescue inhaler USE LAST WEEK BPH (benign prostatic hyperplasia) URINARY RETENTION>HAS DONE SELF CATH IN PAST "RECENTLY HAVING TROUBLE GETTING THE CATHETER IN"-PT CONFIRMS Cancer SCC REMOVAL Cancer PROSTATE TREATED WITH RADIATION-2000 Chronic back pain Diabetes mellitus, type II Diet controlled -PT DENIES SINCE LOSS OF WT Foot drop LEFT (WEARS BRACE) Hearing deficit History of kidney stones History of prostate cancer 2000 - seed placement, external radiation HLD (hyperlipidemia) HTN (hypertension) F/U [facility] Hx of dizziness Hypothyroidism Kidney stones Migraine HX Non-occlusive coronary artery disease No stents Obesity MARA (obstructive sleep apnea) DOES NOT USE DEVICE Osteoarthritis Posterior reversible encephalopathy syndrome HOSPITALIZED AT [facility] 05/2020>REASON FOR FOOT DROP/DIZZINESS CONT. (NO NEUROLOGIST CURRENTLY) Surgical History Fusion of spine LUMBAR History of anesthesia reaction HEADACHE - cleared up after 30 minutes History of appendectomy History of cardiac cath 11/2017 - mild luminal irregularities of LAD & L Cx, EF: 60% - [facility] Tabblo [id number] disease-[facility] History of colonoscopy History of hip surgery DRAIN CYST FOR SWELLING 09/2020 History of tooth extraction History of total hip arthroplasty LEFT/RT Family History (Updated 07/19/21 @ 10:45 by Ana Baumann RN) Grandmother (Paternal) Family history of diabetes mellitus Grandmother (Maternal) Family history of diabetes mellitus Other Coronary heart disease No family history of adverse response to anesthesia Social History Smoking Status: Never smoker Second Hand Exposure: Yes (USED TO AT WORK); Do You Dip or Chew Tobacco: No; Hx Alcohol Use: Yes Alcohol type: wine Hx Substance Use: No Preferred Language: Mohawk Communication Ability: Effective Senior Sql Developer Required: No Beliefs That Will Affect Care: None marital status: Current Living Situation: Spouse current occupational status: retired Other Information That Helps Us Care for You: No Feels Safe at Home: Yes Safety Concerns: Feels Safe At This Time Assistive Devices: Brace/Splint/Immobilizer, Glasses and Walker Assistive Devices Comment: BRACE LEFT FOOT Physical Exam Physical Exam: Patient is alert and oriented Heart regular rate and rhythm Lungs clear Results & Data ([facility]) Vital Signs (Past 12 Hours) Vital Signs Temp Pulse Resp BP Pulse Ox 07/24/21 10:22 36.5 C 60 20 164/94 H 96
[2021-07-24] MEDS ORDERED: ceFAZolin 330 MG/ML 1 GM VIAL ONE (12:27)
[2021-07-24] MEDS ORDERED: BUPIVACAINE/EPINEPHRINE 0.25% 1:200,000 30 ML VIAL ONE (12:27)
[2021-07-24] MEDS ORDERED: fentaNYL citrate 100 MCG/2 ML VIAL ONE ×2 (12:27→14:00)
[2021-07-24] MEDS ORDERED: MIDAZOLAM HCL 1 MG/ML 2ML VIAL ONE (12:27)
[2021-07-24] MEDS ORDERED: ROCURONIUM BROMIDE 10 MG/ML 5 ML VIAL IV ONE (12:29)
[2021-07-24] MEDS ORDERED: PROPOFOL IV EMULSION 10 MG/ML 20 ML VIAL IV ONE ×2 (12:29→14:23)
[2021-07-24] MEDS ORDERED: LIDOCAINE 2% 2 ML VIAL/AMP(20MG/ML) INFIL ONE (12:29)
[2021-07-24] MEDS ORDERED: ONDANSETRON INJ 2 MG/ML 2 ML VIAL ONE (12:30)
[2021-07-24] MEDS ORDERED: GLYCOPYRROLATE 0.2 MG/ML VIAL ONE ×2 (13:15→14:00)
[2021-07-24] MEDS ORDERED: ePHEDrine sulfate 50 MG/ML AMP ONE (13:25)
[2021-07-24] MEDS ORDERED: FLOSEAL HEMOSTATIC MATRIX 10ML TOP ONE (13:39)
[2021-07-24] MEDS ORDERED: NEOSTIGMINE METHYLSULFATE 1 MG/ML 10ML VIAL ONE (13:50)
--- NOTE | 2021-07-24 13:56 | Procedure Note ---
Procedure Note Date of Service July 24, 2021 Note 80-year-old gentleman in the operating room for spinal surgery with difficulty passing his catheter I was called to assist Previously tried straight 16 Italian catheter as well as a 20 Italian coud He has a history of prostate intervention and had previously been performing CIC but was unable to pass catheters recently I was able to successfully guide a 5 Italian open-ended catheter in the bladder and then position a wire. I then used Antonio style male dilators to dilate to 22 Italian. A 20 Italian tejon tip catheter was placed over the wire with return of clear urine. He tolerated the procedure well. I believe this was simply a bladder neck contracture from his prior intervention. Okay to remove the catheter after surgery and the patient is mobile. Coding
--- NOTE | 2021-07-24 15:00 | Operative Report ---
Post Operative Report Pre & Post Diagnosis Operation Date: 06/15/21 09:10 <No data on this case meets the specified criteria> Operation Date: 07/24/21 11:25 Pre-Op Diagnosis: Neurogenic claudication due to lumbar spinal stenosis. Post-Op Diagnosis: Neurogenic claudication due to lumbar spinal stenosis. I identified the patient and participated in the time-out.: Yes Procedure Operation Date: 06/15/21 09:10 <No data on this case meets the specified criteria> Operation Date: 07/24/21 11:25 Actual Procedures #1 removal of posterior segmental instrumentation L2-S1. #2 exploration of fusion L3-S1. #3 lumbar decompression bilateral medial facetectomies and foraminotomies L1-L2 L2-L3. #4 posterior spinal fusion L2-L3. #5 placement posterior instrumentation L2-S1. #6 interbody fusion L2-L3. #7 placement of Spira 13 x 26 mm cage at L2-L3. #8 placement locally harvested morselized autograft in the posterior gutters. #9 placement I factor model V toss interbody space and posterior gutters L2-L3. Surgeon Salvador Duckworth, DO Submarine Diver Coral Sheridan Estimated Blood Loss 400 Findings See Below The patient is 5 foot 11 inches tall weighing over 107 kg with a BMI in excess of 32. Patient's body habitus did contribute to significant technical difficulty required deepest retractors longus instruments in order to perform his procedure. This at least 50% increased operative time. Specimens None Indications This is a 80-year-old male who presents with above-mentioned diagnosis after failed course of nonoperative care is here for surgical invention. Description of Procedure Patient was met with identified informed consent obtained. Patient was then taken to the operative suite underwent intubation placed in the prone position the Hank table on top of the Boston frame. All bony prominences well-padded eyes inspected to ensure no external pressure placed upon them. This point the thoracolumbar spine was prepped and draped in a sterile fashion. Sharp dissection with the assistance of Bovie cautery was performed down to and exposing the lamina and transverse processes of L2 and instrumentation L3-L4-L5 and S1 levels. Then proceeded move the hardware bilaterally explore the fusion mass noting it to be maturing. Then performed complete laminectomy L2 partial laminectomy L1 including bilateral medial facetectomies and foraminotomies addressing severe spinal stenosis. Pedicle screws then placed in L2-L3 L5 and S1 levels bilaterally with assistance of fluoroscopy and appropriate sized erich placed. By way of entrance foraminal approach on the right pleat discectomy of L2-L3 was performed endplates curetted to subcortical and bone and a 13 x 26 mm spiral cage filled I factor tapped in position. The rods then compressed locked in final position bilaterally. The transverse processes of L2 and L3 burred to subcortical bleeding bone. I factor combined with V toss and locally harvested morselized autograft was then placed in the posterior gutters. 15 round JULIA drain inserted. The incision was then closed with 1 Vicryl to fascia 2-0 Vicryl subcutaneously and 4 Monocryl for final skin closure. Steri-Strips dressings placed. Patient waken taken PACU stable condition. Please note spinal cord monitoring was utilized at the procedure no changes noted. Lastly Coral Sheridan was present out the entire procedure involved the patient positioning complex portions of the surgery and final skin closure. I attest to the content of the Intraoperative Record and any orders documented therein. Any exceptions are noted below.
--- NOTE | 2021-07-24 15:15 | Fluoroscopy Report ---
FL lumbar spine 2-3V CLINICAL HISTORY: L2-L3 DECOMPRESSION AND FUSION L3-S1 REVISION FUSION COMPARISON STUDY: Lumbar spine CT and MRI of the lumbar spine May 25, 2021. FLUOROSCOPY TIME: 13 seconds. FLUOROSCOPIC IMAGES: 3 FINDINGS: Revision lumbar spine surgery is present. Interval L2-L3 discectomy with interbody spacer p lacement is noted. There are bilateral pedicle screws at the L2, L3, L5 and S1 levels. Previous L3-L4 and L5-S1 discectomies are noted. Hardware is intact. IMPRESSION: Fluoroscopy provided during L2-L3 discectomy and posterior decompression. Pedicle screw f usion from L2 through S1. ACT 112: Negative or not required by law. Electronically signed by: Naeem Cruz M.D. 07/24/2021 3:14 PM
[2021-07-24] MEDS ORDERED: PROMETHAZINE HCL 6.25 MG in SODIUM CHLORIDE 0.9% 50 ML IV STA (16:00)
[2021-07-24] MEDS ORDERED: SODIUM CHLORIDE 0.9% 50 ML BAG ONE (16:01)
[2021-07-24] MEDS ORDERED: PROMETHAZINE HCL INJ 25 MG/ML 1 ML VIAL ONE (16:02)
--- NOTE | 2021-07-24 16:22 | Anesthesiology Progress Note ---
Date of Service July 24, 2021 Anesthesia Post Procedure Vital Signs Vital Signs: Temp Pulse Pulse Resp BP Pulse Ox 07/24/21 16:05 61 12 107/70 97 07/24/21 15:55 96.8 F L 61 12 102/62 96 07/24/21 15:45 61 12 114/69 95 07/24/21 15:35 62 14 113/73 96 07/24/21 15:25 66 14 124/59 L 96 07/24/21 15:18 96.8 F L 67 12 154/90 H 98 07/24/21 10:22 97.7 F 60 20 164/94 H 96 Transfer of Care Handoff Completed per policy Notes Mental Status: alert / awake / arousable and participated in evaluation Patient Amnestic to Procedure: Yes Nausea / Vomiting: adequately controlled Pain: adequately controlled Airway Patency, RR, SpO2: stable & adequate BP & HR: stable & adequate Hydration State: stable & adequate Anesthetic Complications: no major complications apparent and Pt Satisfied with anesthetic care
[2021-07-24] MEDS ORDERED: DO NOT ADMINISTER FLU VACCINE PRN (17:41)
[2021-07-24] MEDS ORDERED: BENZONATATE 100 MG CAPSULE PO PRN (17:41)
[2021-07-24] MEDS ORDERED: DO NOT ADMINISTER PNEUMOCOCCAL VACCINE PRN (17:41)
[2021-07-24] MEDS ORDERED: MAGNESIUM HYDROXIDE SUSP 30 ML UDC PO PRN (17:41)
[2021-07-24] MEDS ORDERED: PROMETHAZINE HCL 12.5 MG in SODIUM CHLORIDE 0.9% 50 ML IV PRN (17:41)
[2021-07-24] MEDS ORDERED: LORazepam 2 MG/1 ML VIAL IV PRN (17:41)
[2021-07-24] MEDS ORDERED: ACETAMINOPHEN 1,000 MG/100 ML VIAL IV PRN (17:41)
[2021-07-24] MEDS ORDERED: SOD PHOSPHATE/SOD BIPHOSPHATE ENEMA 132 ML BTL PR PRN (17:41)
[2021-07-24] MEDS ORDERED: RIZATRIPTAN BENZOATE 10 MG TAB PO PRN (17:41)
[2021-07-24] MEDS ORDERED: LORazepam 0.5 MG TAB PO PRN (17:41)
[2021-07-24] MEDS ORDERED: bisacodyL 10 MG SUPP PR PRN (17:41)
[2021-07-24] MEDS ORDERED: METOCLOPRAMIDE HCL INJ 5 MG/ML 2 ML VIAL IV PRN (17:41)
[2021-07-24] MEDS ORDERED: ALUMINUM/MAGNESIUM SUSP 30 ML UDC PO PRN (17:41)
[2021-07-24] MEDS ORDERED: ALBUTEROL HFA 8 GM INHALER INH PRN (17:41)
[2021-07-24] MEDS ORDERED: FAMOTIDINE 20 MG TAB PO PRN (17:41)
[2021-07-24] MEDS ORDERED: hydrOXYzine HCl 25 MG TAB PO PRN (17:41)
[2021-07-24] MEDS ORDERED: diphenhydrAMINE Capsule 25 MG CAP PO PRN (17:41)
[2021-07-24] MEDS ORDERED: traMADol HCL 50 MG TABLET PO PRN (17:41)
[2021-07-24] MEDS ORDERED: ONDANSETRON 4 MG OD TAB PO PRN (17:41)
[2021-07-24] MEDS ORDERED: NALOXONE HCL 0.4 MG/1 ML VIAL/CARP IV PRN (17:41)
[2021-07-24] MEDS ORDERED: HYDROmorphone INJ 0.5 MG/0.5 ML SYR IV PRN (17:41)
--- NOTE | 2021-07-24 17:52 | Hospitalist Consultation ---
Date of Consultation July 24, 2021 Assessment & Plan (1) Neurogenic claudication due to lumbar spinal stenosis: - Pain management, bowel regimen and DVT ppx per the primary team - PT/OT consults, pt is planning on outpatient therapy after discharge - Follow am CBC to monitor for acute blood loss, last hemoglobin 11.6 (2) HTN (hypertension): -Continue lisinopril 5 mg daily, BP is in low 100s over 60s while at bedside -Had previous episode of encephalopathy and visual hallucinations in the setting of posterior reversible encephalopathy due to accelerated hypertension, seen by Dr. Jurado with neurology on 06/06/2021 -Denies any headaches, is awake, oriented x3, without complaints of visual hallucinations. 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, glycemic pharmacy has been consulted by the primary service (7) Hypothyroidism: -Continue levothyroxine 125 mcg daily, last TSH = 1.79 on 07/18/2021 (8) Obesity: - Diet and exercise to be encouraged while admitted, BMI 32.8 (9) MARA (obstructive sleep apnea): -Noncompliant on CPAP Per outpatient notes, does not wear O2 at baseline DVT PPx: - teds, scds CODE: Full code Dispo: From home, likely to remain in the hospital x 1-2 days. Thank you for involving us in the care of Mr. Hameed. If you have any questions or concerns please do not hesitate to call. Medicine will follow along. Supervising Physician Co-Signing Physician Notes Pt is a 80 y/o M with hx of hypothyroidism, HLD, HTN, Prediabetes, Asthma, MARA, posterior reversal encephalopathy, lumbar spinal stenosis with claudication, chronic L foot drop admitted for lower back surgery PE: NAD, well developed Lungs: CTA, no wheezing or crackles Card: normal S1/S2, no murmur Abd: ND, NT, Soft MSk: L foot drop, able to move his R toes Psych: AAOx3, normal affect A/P: Lower back pain with claudication due to lumbar spinal stenosis: -pt underwent L2-L3 decompression and fusion with L3-S1 revision fusion -pt is recovering well -LBM was 3 days & have chronic constipation ---- daily stool regimen: Colace and senna BID with daily miralax -Pain management per primary team -PT/OT consult -repeat CBC and BMP HTN with hx of posterior reversal encephalopathy: -BP wnl -continue Lisinopril 5mg daily - continue to monitor BP. Goal of <140/90 Hypothyroidism/Asthma/HLD: -continue home regimen Agree with A/P by Summer Bryant PA-C History of Present Illness Reason for Consultation: Medical management Requesting Physician: Dr. Duckworth Attending Physician: Salvador Duckworth, History of Present Illness This is a 80 yo M with PMHx of history of asthma, diabetes mellitus II, hypothyroidism, sleep apnea-currently not on CPAP, lumbar spinal stenosis with neurogenic claudication, hyperlipidemia, anxiety and depression, hypertension, H/O prostate cancer S/P radiation and other medical problems who presented for scheduled lumbar decompression fusion of L1-L3 with a Spira cage insertion at L2-L3 by Dr. Duckworth on 07/24/21. He was previously scheduled for this surgery however due to low blood pressure it was cancelled at the end of May, blood pressure medications were adjusted and it was rescheduled for now. He is currently doing well, sitting up eating dinner consisting of frozen ice, clear broth. He denies any current headache, palpitations, chest pain or shortness of breath. He denies any abdominal complaints other than intermittent constipation, and last had a bowel movement on Friday, approximately 4 days ago. He reports that he can go 1 week in between having bowel movements, and then uses MiraLAX however then often gets diarrhea. This has been ongoing for many years. He reports his legs feel the same as he did prior to surgery currently, he has neuropathy in both feet, and a left foot drop which is chronic. He has been using a walker due to the foot drop and also wears a brace on his left foot to help prevent injury. He lives at home with his , cat and a dog. He anticipates participating in outpatient therapy after discharge from the hospital. He denies any other acute complaints. Allergies Allergy/AdvReac Type Severity Reaction Status Date / Time tramadol AdvReac Intermediate double Verified 07/24/21 10:18 vision Home Medications Medication Instructions Recorded Confirmed Type albuterol sulfate 90 mcg/actuation 2 puff INHALATION Q4H PRN 02/23/18 07/24/21 History aerosol inhaler (Ventolin HFA) atorvastatin 40 mg tablet 40 mg PO QPM 02/23/18 07/24/21 History fluticasone 250 mcg-salmeterol 50 1 inh INHALATION BID 02/23/18 07/24/21 History mcg/dose blistr powdr for inhalation (Advair Diskus) montelukast 10 mg tablet 10 mg PO QPM 02/23/18 07/24/21 History (Singulair) lisinopril 5 mg tablet 5 mg PO QAM 10/08/19 07/24/21 History melatonin 5 mg tablet 5 mg PO HS PRN 10/08/19 07/24/21 History rizatriptan 10 mg tablet (Maxalt) 10 mg PO DIRECTED PRN 10/08/19 07/24/21 History benzonatate 100 mg capsule 100 mg PO TID PRN 05/25/20 07/24/21 History sertraline 50 mg tablet 50 mg PO QAM 05/25/20 07/24/21 History tiotropium bromide 2.5 2 puff INHALATION BID 05/25/20 07/24/21 History mcg/actuation mist for inhalation (Spiriva Respimat) gabapentin 100 mg capsule 200 mg PO QAM 05/21/21 07/24/21 History trospium 20 mg tablet 20 mg PO BID 05/21/21 07/24/21 History levothyroxine 125 mcg tablet 125 mcg PO DAILYBB 30 Days #30 tab 05/28/21 07/24/21 Rx (Synthroid) Patient History Medical History (Updated 07/24/21 @ 12:11 by Salvador Duckworth DO) AAA (abdominal aortic aneurysm) LAST CHECKED 1 YEAR AGO Anxiety and depression Asthma last rescue inhaler USE LAST WEEK BPH (benign prostatic hyperplasia) URINARY RETENTION>HAS DONE SELF CATH IN PAST "RECENTLY HAVING TROUBLE GETTING THE CATHETER IN"-PT CONFIRMS Cancer SCC REMOVAL Cancer PROSTATE TREATED WITH RADIATION-2000 Chronic back pain Diabetes mellitus, type II Diet controlled -PT DENIES SINCE LOSS OF WT Foot drop LEFT (WEARS BRACE) Hearing deficit History of kidney stones History of prostate cancer 2000 - seed placement, external radiation HLD (hyperlipidemia) HTN (hypertension) F/U [facility] Hx of dizziness Hypothyroidism Kidney stones Migraine HX Non-occlusive coronary artery disease No stents Obesity MARA (obstructive sleep apnea) DOES NOT USE DEVICE Osteoarthritis Posterior reversible encephalopathy syndrome HOSPITALIZED AT [facility] 05/2020>REASON FOR FOOT DROP/DIZZINESS CONT. (NO NEUROLOGIST CURRENTLY) Surgical History Fusion of spine LUMBAR History of anesthesia reaction HEADACHE - cleared up after 30 minutes History of appendectomy History of cardiac cath 11/2017 - mild luminal irregularities of LAD & L Cx, EF: 60% - [facility] [id number] disease-[facility] History of colonoscopy History of hip surgery DRAIN CYST FOR SWELLING 09/2020 History of tooth extraction History of total hip arthroplasty LEFT/RT Family History (Updated 07/19/21 @ 10:45 by Ana Baumann RN) Grandmother (Paternal) Family history of diabetes mellitus Grandmother (Maternal) Family history of diabetes mellitus Other Coronary heart disease No family history of adverse response to anesthesia Social History Smoking Status: Never smoker Second Hand Exposure: Yes (USED TO AT WORK); Do You Dip or Chew Tobacco: No; Hx Alcohol Use: Yes Alcohol type: wine Hx Substance Use: No Preferred Language: German Communication Ability: Effective Caddy Required: No Beliefs That Will Affect Care: None marital status: Current Living Situation: Spouse current occupational status: retired Other Information That Helps Us Care for You: No Feels Safe at Home: Yes Safety Concerns: Feels Safe At This Time Assistive Devices: Brace/Splint/Immobilizer, Glasses and Walker Assistive Devices Comment: BRACE LEFT FOOT Review of Systems Review of Systems: Constitutional: No fever, sweats or chills, no headache Eyes: No diplopia, no worsening or blurred vision ENT: normal hearing, no trouble swallowing Respiratory: No cough, sputum, dyspnea at rest or on exertion, currently on oxygen but does not wear this at home Cardiovascular: No chest pain, tightness or palpitations Abdomen: No pain, nausea, vomiting, diarrhea or constipation Musculoskeletal: No joint pain, calf pain, swelling Neurologic: As per HPI with chronic left foot drop, uses walker, +neuropathy bilateral lower extremities. Psychiatric: No anxiety or depression Skin: No rash or itch Physical Exam Physical Exam: General: awake, alert, no apparent distress Head: Normocephalic, atraumatic ENT: PERRL, EOMI, no pharyngeal exudate, mucous membranes moist Chest: Clear to auscultation, on 2 L via NC, no adventitious breath sounds Cardiac: Regular rate and rhythm, no murmur, no JVD, normal peripheral pulses, good capillary refill Abdominal: NABS x 4 quadrants, soft, nondistended, nontender to palpation, no rebound or guarding Back: s/p surgery so was not turned to examine, JULIA drain draining serosanginous bloody fluid Extremities: Normal inspection, no peripheral edema or erythema, calfs nontender to palpation Psych: Normal mood and affect Neuro: AAO x 3, strength intact bilaterally and rated 5/5, + left foot drop chronic, no gross motor deficits, speech is clear, no peripheral sensory deficits Results & Data Results & Data ([facility]) Vital Signs (Past 12 Hours) Vital Signs Temp Pulse Pulse Resp BP Pulse Ox 07/24/21 17:10 54 L 12 100/56 L 97 07/24/21 16:55 36.2 C L 56 L 12 100/58 L 97 07/24/21 16:40 56 L 12 104/62 95 07/24/21 16:25 36.0 C L 62 14 105/56 L 94 07/24/21 16:15 59 L 12 104/63 92 07/24/21 16:05 61 12 107/70 97 07/24/21 15:55 36.0 C L 61 12 102/62 96 07/24/21 15:45 61 12 114/69 95 07/24/21 15:35 62 14 113/73 96 07/24/21 15:25 66 14 124/59 L 96 07/24/21 15:18 36.0 C L 67 12 154/90 H 98 07/24/21 10:22 36.5 C 60 20 164/94 H 96 Laboratory Results 07/24/21 07/24/21 07/24/21 Unknown 15:20 10:22 PT 10.9 INR 1.0 APTT 27.6 PTT Ratio 1.0 POC Glucose 124 H SARS-CoV-2, RNA, NAAT NEGATIVE Blood Type Antibody Screen 07/24/21 07/24/21 10:22 10:16 PT INR APTT PTT Ratio POC Glucose 127 H SARS-CoV-2, RNA, NAAT Blood Type A Negative Antibody Screen NEGATIVE Diagnostic Findings Lumbar Spine X-Ray 07/24/21 11:25 FL lumbar spine 2-3V CLINICAL HISTORY: L2-L3 DECOMPRESSION AND FUSION L3-S1 REVISION FUSION COMPARISON STUDY: Lumbar spine CT and MRI of the lumbar spine May 25, 2021. FLUOROSCOPY TIME: 13 seconds. FLUOROSCOPIC IMAGES: 3 FINDINGS: Revision lumbar spine surgery is present. Interval L2-L3 discectomy with interbody spacer placement is noted. There are bilateral pedicle screws at the L2, L3, L5 and S1 levels. Previous L3-L4 and L5-S1 discectomies are noted. Hardware is intact. IMPRESSION: Fluoroscopy provided during L2-L3 discectomy and posterior decompression. Pedicle screw fusion from L2 through S1. ACT 112: Negative or not required by law. Electronically signed by: Naeem Cruz M.D. 07/24/2021 3:14 PM
[2021-07-24] MEDS: SODIUM CHLORIDE 0.9% 1000ML 1,000 ML IV SCH (19:57)
[2021-07-24] MEDS: ATORVASTATIN 40 MG TAB PO SCH (20:17)
[2021-07-24] MEDS: DOCUSATE SODIUM/SENNA 50/8.6MG TAB PO SCH (20:17)
[2021-07-24] MEDS: ceFAZolin 2000MG 2,000 MG/15 ML SYR IV SCH (21:33)
[2021-07-24] MEDS: MONTELUKAST SODIUM 10 MG TABLET PO SCH (21:33)
[2021-07-25] MEDS: [UNRECOGNIZED DRUG - REMARK] SCH ×4 (00:01→23:34)
[2021-07-25] MEDS: SODIUM CHLORIDE 0.9% 1000ML 1,000 ML IV SCH ×2 (02:21→07:30)
[2021-07-25] MEDS: POLYETHYLENE (MIRALAX) 17 GM PACK PO SCH ×4 (05:32→23:34)
[2021-07-25] MEDS: ceFAZolin 2000MG 2,000 MG/15 ML SYR IV SCH (05:32)
[2021-07-25] MEDS: LEVOTHYROXINE SODIUM 125 MCG TABLET PO SCH (05:33)
[2021-07-25] MEDS: oxyCODONE HCL IR 5 MG TAB (IMMEDIATE RELEASE) PO PRN ×2 (05:43→15:52)
[2021-07-25 07:29] LABS: Estimated Average Glucose 123 mg/dl; Hemoglobin A1C 5.9 % (4.5-5.6)
[2021-07-25 07:48] LABS: Basophils # (auto) 0.02 K/uL (0-0.2); Basophils % (auto) 0.3 %; Eosinophils # (auto) 0.13 K/uL (0-0.5); Eosinophils % (auto) 1.8 %; Hematocrit (blood only) 34.9 % (42-52); Hemoglobin 11.2 g/dL (14.0-18.0); Immature Granulocytes # (auto) 0.02 K/uL (0.00-0.02); Immature Granulocytes % (auto) 0.3 %; Lymphocytes # (auto) 1.21 K/uL (1.2-3.4); Lymphocytes % (auto) 16.6 %; Mean Corpuscular Hemoglobin 28.4 pg (25-34); Mean Corpuscular Hgb Conc 32.1 g/dL (32-36); Mean Corpuscular Volume 88.6 fL (80-100); Mean Platelet Volume 8.9 fL (7.4-10.4); Monocytes # (auto) 0.98 K/uL (0.11-0.59); Monocytes % (auto) 13.4 %; Neutrophils # (auto) 4.94 K/uL (1.4-6.5); Neutrophils % (auto) 67.6 %; Platelet Count 223 K/uL (130-400); RDW Coefficient of Variation 14.2 % (11.5-14.5); RDW Standard Deviation 46.1 fL (36.4-46.3); Red Blood Count 3.94 M/uL (4.7-6.1)
[2021-07-25 07:49] LABS: BUN Creatinine Ratio 15.9 (10-20); Calcium 8.6 mg/dl (8.5-10.1); Creatinine Clr Calc Pharmacy 92.3 ml/min; Est GFR (African American) 98.2 ml/min; Est GFR (Non-African American) 84.7 ml/min; Potassium 4.1 mmol/L (3.5-5.1)
[2021-07-25] MEDS: dexAMETHasone 6 MG in SYRINGE 0 ML IV SCH (08:25)
[2021-07-25] MEDS: lisinopril 5 MG TAB PO SCH (08:26)
[2021-07-25] MEDS: GABAPENTIN 100 MG CAP PO SCH (08:26)
[2021-07-25] MEDS: SERTRALINE HCL 50 MG TABLET PO SCH (08:26)
[2021-07-25] MEDS: FLUTICASONE/VILANTEROL 200/25MCG 14 PUFFS/INHALER INH SCH (08:26)
[2021-07-25] MEDS: UMECLIDINIUM BROMIDE 62.5MCG/BLISTER 7 PUFFS/INHALER INH SCH (08:27)
--- NOTE | 2021-07-25 11:10 | Orthopedic Progress Note ---
Date of Service July 25, 2021 Assessment & Plan (1) Neurogenic claudication due to lumbar spinal stenosis: Plan: At this time initiate physical therapy occupational therapy assess his progress and see if he is a candidate for rehab versus discharge home in the next few days. Admission and Anticipated Discharge Date Admission Date: July 24, 2021 Subjective Patient in the chair at the bedside. He is comfortable. No leg pain. Physical Exam Physical Exam: Patient appears comfortable. Is good strength testing the right lower extremity. Does have a known established foot drop on the left lower extremity. Results & Data ([facility]) Vital Signs (Past 12 Hours) Vital Signs Temp Pulse Resp BP Pulse Ox 07/25/21 07:53 36.7 C 69 18 117/69 91 07/25/21 03:32 36.9 C 67 16 103/62 92
--- NOTE | 2021-07-25 17:28 | Hospitalist Progress Note ---
Date of Service July 25, 2021 Assessment & Plan (1) Neurogenic claudication due to lumbar spinal stenosis: Plan: Pain mangement as per ORtho plan to continue PT/OT for now (2) HTN (hypertension): Plan: On lisinopril 5 mg daily. Will monitor. 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 Jurado with neurology on 06/06/2021 as per consult note (3) Diastolic dysfunction: Plan: Currently stable will monitor for volume overload. (4) AAA (abdominal aortic aneurysm): Plan: "Follows with [facility] heart and vascular [place] for cardiology as an outpatient last echo was completed on 07/18/2020 that is available in the chart for review showing normal LVEF of 55 to 60%, no regional WMA, type I diastolic dysfunction moderate ascending aortic dilation measuring 4.8 cm in 2016 the ascending aorta measured 4.7 cm" as per consult note. (5) HLD (hyperlipidemia): Plan: ON atorvastatin 40 mg daily (6) Diabetes mellitus, type II: Plan: Last A1c was 5.9 on 05/02/2021 ISS Glycemic pharmacy consulted. (7) Hypothyroidism: Plan: On levothyroxine 125 mcg daily, (8) Obesity: Plan: Diet and exercise to be encouraged followup with cpp (9) MARA (obstructive sleep apnea): Plan: Noncompliant on CPAP Per outpatient notes Not on oxygen q hs DVT PPx: teds, scds CODE: Full code Dispo: As per primary team. Admission and Anticipated Discharge Date Admission Date: July 24, 2021 Subjective Says ambulated in hallway with walker with PT . Says Get sob easily on exertion and takes half of rest to come back to baseline eating ok no chest pain no headache constipated and needs stool softners. Review of Systems Review of Systems: All systems reviewed & are unremarkable except as noted in Subjective Physical Exam Constitutional: WD/WN, vitals as above ENMT: external ear and nose normal, oropharynx normal Neck: trachea midline, no thyromegaly Respiratory: normal respiratory effort, lungs clear to auscultation Cardiovascular: RRR, no murmur, no edema Gastrointestinal (Abdomen): normal bowel sounds, soft, nontender, no hepatosplenomegaly Neurologic: EOMI, NO facial palsy, No dyarthria, Moves extremities Psychiatric: A+Ox3, euthymic affect Results & Data Results & Data ([facility]) Vital Signs (Past 12 Hours) Vital Signs Temp Pulse Resp BP Pulse Ox 07/25/21 16:00 36.5 C 106 H 18 114/72 91 07/25/21 11:54 36.7 C 73 18 100/64 92 07/25/21 07:53 36.7 C 69 18 117/69 91
[2021-07-25] MEDS: DOCUSATE SODIUM/SENNA 50/8.6MG TAB PO SCH (20:10)
[2021-07-25] MEDS: MONTELUKAST SODIUM 10 MG TABLET PO SCH (20:10)
[2021-07-25] MEDS: ATORVASTATIN 40 MG TAB PO SCH (20:10)
[2021-07-26] MEDS: POLYETHYLENE (MIRALAX) 17 GM PACK PO SCH ×3 (05:38→18:34)
[2021-07-26] MEDS: LEVOTHYROXINE SODIUM 125 MCG TABLET PO SCH (05:38)
[2021-07-26] MEDS: UMECLIDINIUM BROMIDE 62.5MCG/BLISTER 7 PUFFS/INHALER INH SCH (07:50)
[2021-07-26] MEDS: FLUTICASONE/VILANTEROL 200/25MCG 14 PUFFS/INHALER INH SCH (07:50)
[2021-07-26] MEDS: GABAPENTIN 100 MG CAP PO SCH (07:50)
[2021-07-26] MEDS: [UNRECOGNIZED DRUG - REMARK] SCH ×2 (07:50→15:40)
[2021-07-26] MEDS: dexAMETHasone 6 MG in SYRINGE 0 ML IV SCH (07:50)
[2021-07-26] MEDS: SERTRALINE HCL 50 MG TABLET PO SCH (07:51)
[2021-07-26] MEDS: lisinopril 5 MG TAB PO SCH (07:58)
--- NOTE | 2021-07-26 09:10 | Orthopedic Progress Note ---
Date of Service July 26, 2021 Assessment & Plan (1) Neurogenic claudication due to lumbar spinal stenosis: Plan: This time we will continue physical therapy monitor his JULIA output anticipate rehab in the next day or so. Admission and Anticipated Discharge Date Admission Date: July 24, 2021 Subjective Patient continues to note weakness lower extremities but his pain is improved. He was able to walk down the [place] yesterday. Physical Exam Physical Exam: Patient is in bed. Appears comfortable. Is good strength testing to the right lower extremity. Does have established foot drop on the left. Results & Data ([facility]) Vital Signs (Past 12 Hours) Vital Signs Temp Pulse Resp BP Pulse Ox 07/26/21 07:45 36.5 C 62 16 131/77 95 07/25/21 21:14 37.1 C 86 16 116/68 92
[2021-07-26] MEDS: oxyCODONE HCL IR 5 MG TAB (IMMEDIATE RELEASE) PO PRN (09:45)
--- NOTE | 2021-07-26 13:41 | Hospitalist Progress Note ---
Date of Service July 26, 2021 Assessment & Plan (1) Neurogenic claudication due to lumbar spinal stenosis: Plan: Pain mangement as per ORtho To continue PT/OT Pln for rehab placement (2) HTN (hypertension): Plan: On lisinopril 5 mg daily. Will monitor. 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 Jurado with neurology on 06/06/2021 as per consult note stable (3) Diastolic dysfunction: Plan: Currently stable will monitor for volume overload. (4) AAA (abdominal aortic aneurysm): Plan: "Follows with [facility] heart and vascular [place] for cardiology as an outpatient last echo was completed on 07/18/2020 that is available in the chart for review showing normal LVEF of 55 to 60%, no regional WMA, type I diastolic dysfunction moderate ascending aortic dilation measuring 4.8 cm in 2016 the ascending aorta measured 4.7 cm" as per consult note. Needs followup (5) HLD (hyperlipidemia): Plan: ON atorvastatin 40 mg daily (6) Diabetes mellitus, type II: Plan: Last A1c was 5.9 on 05/02/2021 [facility] Glycemic pharmacy consulted. (7) Hypothyroidism: Plan: On levothyroxine 125 mcg daily, (8) Obesity: Plan: Diet and exercise to be encouraged followup with cpp (9) MARA (obstructive sleep apnea): Plan: Noncompliant on CPAP Per outpatient notes Not on oxygen q hs DVT PPx: teds, scds CODE: Full code Dispo: As per primary team. Admission and Anticipated Discharge Date Admission Date: July 24, 2021 Subjective Sitting on the chair ambulated twice in the hallway felt sob afer ambulating denies any chest pain eating ok afebrile awaiting rehab placement Review of Systems Review of Systems: All systems reviewed & are unremarkable except as noted in Subjective Physical Exam Constitutional: WD/WN, vitals as above Neck: trachea midline, no thyromegaly Respiratory: normal respiratory effort, lungs clear to auscultation Cardiovascular: S1 and s2 heard, RRR, No murmurs, mild pedal edema present Gastrointestinal (Abdomen): normal bowel sounds, soft, nontender, no hepatosplenomegaly Neurologic: Aler and oriented No facial palsy, speech clear, moves extremities Psychiatric: A+Ox3, euthymic affect Results & Data Results & Data ([facility]) Vital Signs (Past 12 Hours) Vital Signs Temp Pulse Resp BP Pulse Ox 07/26/21 07:45 36.5 C 62 16 131/77 95
[2021-07-26] MEDS: ATORVASTATIN 40 MG TAB PO SCH (20:56)
[2021-07-26] MEDS: DOCUSATE SODIUM/SENNA 50/8.6MG TAB PO SCH (20:57)
[2021-07-26] MEDS: MONTELUKAST SODIUM 10 MG TABLET PO SCH (20:57)
[2021-07-27] MEDS: [UNRECOGNIZED DRUG - REMARK] SCH ×3 (00:23→16:32)
[2021-07-27] MEDS: POLYETHYLENE (MIRALAX) 17 GM PACK PO SCH ×4 (00:23→19:47)
[2021-07-27] MEDS: LEVOTHYROXINE SODIUM 125 MCG TABLET PO SCH (06:03)
[2021-07-27] MEDS: GABAPENTIN 100 MG CAP PO SCH (08:26)
[2021-07-27] MEDS: lisinopril 5 MG TAB PO SCH (08:26)
[2021-07-27] MEDS: SERTRALINE HCL 50 MG TABLET PO SCH (08:26)
[2021-07-27] MEDS: UMECLIDINIUM BROMIDE 62.5MCG/BLISTER 7 PUFFS/INHALER INH SCH (08:27)
[2021-07-27] MEDS: dexAMETHasone 6 MG in SYRINGE 0 ML IV SCH (08:27)
[2021-07-27] MEDS: FLUTICASONE/VILANTEROL 200/25MCG 14 PUFFS/INHALER INH SCH (08:27)
--- NOTE | 2021-07-27 12:49 | Hospitalist Progress Note ---
Date of Service July 27, 2021 Assessment & Plan (1) Neurogenic claudication due to lumbar spinal stenosis: Plan: S/p lumbar decompression POD #3 Pain mangement as per ORtho Continue PT/OT Plan for rehab Bowel regimen for constipation. Bisacodyl [place] (2) HTN (hypertension): Plan: Continue lisinopril 5 mg daily. 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 Jurado with neurology on 06/06/2021 as per consult note stable (3) Diastolic dysfunction: Plan: Currently stable (4) AAA (abdominal aortic aneurysm): Plan: "Follows with [facility] heart and vascular [place] for cardiology as an outpatient last echo was completed on 07/18/2020 that is available in the chart for review showing normal LVEF of 55 to 60%, no regional WMA, type I diastolic dysfunction moderate ascending aortic dilation measuring 4.8 cm in 2016 the ascending aorta measured 4.7 cm" as per consult note. Needs to followup with his Cardiology (5) HLD (hyperlipidemia): Plan: Continue atorvastatin 40 mg daily (6) Diabetes mellitus, type II: Plan: Last A1c was 5.9 on 05/02/2021 (7) Hypothyroidism: Plan: Continue levothyroxine 125 mcg daily (8) Obesity: Plan: Educated on lifestyle modification and weight loss (9) MARA (obstructive sleep apnea): Plan: Noncompliant on CPAP Per outpatient notes Not on oxygen q hs Admission and Anticipated Discharge Date Admission Date: July 24, 2021 Subjective Patient seen and examined Patient reports pain at surgical site is controlled Reports constipation. Yet to move his bowels. Reports he usually has constipation at home Denied any chest pain or shortness of breath at rest. Reports dyspnea on exertion that has been ongoing for months for which he has appt with Cardiology Denied any nausea, vomiting, abd pain Denied any dysuria, freq, urgency Physical Exam Constitutional: + well hydrated; no acute distress Eyes: PERRL, conjunctivae normal, anicteric sclerae ENMT: external ear and nose normal, oropharynx normal Respiratory: normal respiratory effort, lungs clear to auscultation Cardiovascular: Rate/Rhythm: regular rate and regular rhythm S1 S2 Gastrointestinal (Abdomen): normal bowel sounds, soft, nontender, no hepatosplenomegaly Musculoskeletal: Clean dressing over surgical site Neurologic: PERRL, EOMI, accommodation nl, no face palsy, no dysarthria Psychiatric: A+Ox3, euthymic affect Results & Data Results & Data ([facility]) Vital Signs (Past 12 Hours) Vital Signs Temp Pulse Resp BP Pulse Ox 07/27/21 08:07 36.7 C 66 18 178/84 H 93
--- NOTE | 2021-07-27 13:25 | Orthopedic Progress Note ---
Date of Service July 27, 2021 Assessment & Plan (1) Neurogenic claudication due to lumbar spinal stenosis: Plan: At this time he is undergoing physical therapy and tolerating this well. He is a candidate for rehab and hopefully be accepted today or tomorrow. He is cl eared for discharge per orthopedics. Admission and Anticipated Discharge Date Admission Date: July 24, 2021 Subjective Patient back pain is controlled leg symptoms improving Physical Exam Physical Exam: Patient is good strength testing appears comfortable. Results & Data ([facility]) Vital Signs (Past 12 Hours) Vital Signs Temp Pulse Resp BP Pulse Ox 07/27/21 08:07 36.7 C 66 18 178/84 H 93
[2021-07-27] MEDS: oxyCODONE HCL IR 5 MG TAB (IMMEDIATE RELEASE) PO PRN (16:45)
[2021-07-27] MEDS: ATORVASTATIN 40 MG TAB PO SCH (20:17)
[2021-07-27] MEDS: MONTELUKAST SODIUM 10 MG TABLET PO SCH (20:17)
[2021-07-27] MEDS: DOCUSATE SODIUM/SENNA 50/8.6MG TAB PO SCH (20:17)
[2021-07-28] MEDS: POLYETHYLENE (MIRALAX) 17 GM PACK PO SCH ×6 (01:25→22:38)
[2021-07-28] MEDS: [UNRECOGNIZED DRUG - REMARK] SCH ×4 (01:25→22:38)
[2021-07-28] MEDS: LEVOTHYROXINE SODIUM 125 MCG TABLET PO SCH (05:16)
[2021-07-28] MEDS: UMECLIDINIUM BROMIDE 62.5MCG/BLISTER 7 PUFFS/INHALER INH SCH (08:03)
[2021-07-28] MEDS: FLUTICASONE/VILANTEROL 200/25MCG 14 PUFFS/INHALER INH SCH (08:03)
[2021-07-28] MEDS: GABAPENTIN 100 MG CAP PO SCH (08:04)
[2021-07-28] MEDS: SERTRALINE HCL 50 MG TABLET PO SCH (08:04)
[2021-07-28] MEDS: lisinopril 5 MG TAB PO SCH (08:04)
[2021-07-28] MEDS: ACETAMINOPHEN 500 MG TAB PO PRN (10:12)
--- NOTE | 2021-07-28 11:37 | Orthopedic Progress Note ---
Date of Service July 28, 2021 Assessment & Plan (1) Neurogenic claudication due to lumbar spinal stenosis: Plan: This time the patient still is not a bowel movement is quite concerned. He would like to stay 1 more day prior to discharge. This is reasonable. We will however change the dressing DC drain today. Continue advance his bowel regimen. Hopefully discharge tomorrow. Admission and Anticipated Discharge Date Admission Date: July 24, 2021 Subjective Patient's back pain is controlled leg symptoms improved still no bowel movement. Physical Exam Physical Exam: Patient sitting up to bedside. Skin strength testing. He is wearing his brace. Results & Data ([facility]) Vital Signs (Past 12 Hours) Vital Signs Temp Pulse Pulse Resp BP Pulse Ox 07/28/21 07:00 36.5 C 61 18 112/59 L 94 07/28/21 00:24 36.7 C 65 18 134/83 92
--- NOTE | 2021-07-28 17:38 | Hospitalist Progress Note ---
Date of Service July 28, 2021 Assessment & Plan (1) Neurogenic claudication due to lumbar spinal stenosis: Plan: S/p lumbar decompression POD #4 Pain mangement as per Ortho-narcotics were discouraged in setting of constipation Continue PT/OT Plan for rehab Bowel regimen for constipation. Bisacodyl [place] PRN (2) HTN (hypertension): Plan: Continue lisinopril 5 mg daily. 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 Jurado with neurology on 06/06/2021 as per consult note stable (3) Diastolic dysfunction: Plan: Currently stable (4) AAA (abdominal aortic aneurysm): Plan: "Follows with [facility] heart and vascular [place] for cardiology as an outpatient last echo was completed on 07/18/2020 that is available in the chart for review showing normal LVEF of 55 to 60%, no regional WMA, type I diastolic dysfunction moderate ascending aortic dilation measuring 4.8 cm in 2016 the ascending aorta measured 4.7 cm" as per consult note. f/u monitoring as outpatient. (5) HLD (hyperlipidemia): Plan: chronic, stable. Continue atorvastatin 40 mg daily (6) Diabetes mellitus, type II: Plan: chronic, diet controlled. Last A1c was 5.9 on 05/02/2021 (7) Hypothyroidism: Plan: chronic, stable, Continue levothyroxine 125 mcg daily (8) MARA (obstructive sleep apnea): Plan: Noncompliant on CPAP Per outpatient notes Not on oxygen qhs (9) DVT prophylaxis: Plan: SCDs Full Code [facility] Admission and Anticipated Discharge Date Admission Date: July 24, 2021 Subjective 80 yo M admitted for lumbar surgery Small BM with help of suppository last evening. Still feels constipated and without much relief Taking scheduled Miralax Open to using a suppository again Declines enema at this time Post op pain is well controlled. No narcotics used today and this was discouraged Ambulation encouraged. Review of Systems Review of Systems: All systems were reviewed and negative except as indicated above. Physical Exam Physical Exam: CONSTITUTIONAL: WNWD, vitals as above, generally well- appearing, NAD EYES: normal conjunctivae, no scleral icterus, ENT: external ear and nose normal, NECK: trachea midline, RESPIRATORY: clear to auscultation bilaterally, no crackles, rales or wheezes, normal respiratory effort CARDIOVASCULAR: regular rate and rhythm, S1 and 2 heard without murmurs, gallops or rubs, no JVD, no peripheral edema CHEST: inspection of chest was normal (+pacemaker, +port) GASTROINTESTINAL: soft, nontender, ND, no guarding MUSCULOSKELETAL: strength 5/5 throughout, except some foot drop noted on left foot. head is normocephalic and atraumatic, SKIN: warm and dry, NEUROLOGIC: CN 2-12 grossly intact, decreased sensation on left foot to level of ankle, normal cognition, normal speech, no tremor PSYCHIATRIC: alert cooperative and oriented to person, place and time. Results & Data Results & Data ([facility]) Vital Signs (Past 12 Hours) Vital Signs Temp Pulse Pulse Resp BP BP Pulse Ox 07/28/21 16:00 36.6 C 89 20 127/73 94 07/28/21 07:00 36.5 C 61 18 112/59 L 94 Medications Administered Current Inpatient Medications Acetaminophen (Acetaminophen 500 Mg Tab) 1,000 mg PO Q8H PRN PRN Reason: MILD Pain Scale 1,2,3 & Pre PT Stop: 08/23/21 17:40 Last Admin: 07/28/21 10:12 Dose: 1,000 mg Documented by: Al Hydrox/Mg Hydrox/Simethicone (Aluminum/Magnesium Susp 30 Ml Udc) 30 ml PO Q6H PRN PRN Reason: Dyspepsia Stop: 08/23/21 17:40 Albuterol (Albuterol Hfa 8 Gm Inhaler) 2 puffs INH Q4H PRN PRN Reason: Wheezing Stop: 08/23/21 17:40 Atorvastatin Calcium (Atorvastatin 40 Mg Tab) 40 mg PO QPM JACKELINE Stop: 08/23/21 20:59 Last Admin: 07/27/21 20:17 Dose: 40 mg Documented by: Benzonatate (Benzonatate 100 Mg Capsule) 100 mg PO TID PRN PRN Reason: Cough Stop: 08/23/21 17:40 Bisacodyl (Bisacodyl 10 Mg Supp) 10 mg OH DAILY PRN PRN Reason: Constipation Stop: 08/23/21 17:40 Last Admin: 07/27/21 12:54 Dose: 10 mg Documented by: Diphenhydramine HCl (Diphenhydramine Capsule 25 Mg Cap) 25 mg PO Q6H PRN PRN Reason: Allergic Rhinitis/Insomnia Stop: 08/23/21 17:40 Famotidine (Famotidine 20 Mg Tab) 20 mg PO Q12H PRN PRN Reason: Dyspepsia Stop: 08/23/21 17:40 Fluticasone/Vilanterol (Fluticasone/Vilanterol 200/25mcg 14 Puffs/Inhaler) 1 puffs INH DAILY [facility]; Protocol Stop: 08/24/21 08:59 Last Admin: 07/28/21 08:03 Dose: 1 puffs Documented by: Gabapentin (Gabapentin 100 Mg Cap) 200 mg PO QAM [facility] Stop: 08/24/21 08:59 Last Admin: 07/28/21 08:04 Dose: 200 mg Documented by: Hydromorphone HCl (Hydromorphone Inj 0.5 Mg/0.5 Ml Syr) 0.5 mg IV Q3H PRN PRN Reason: MODERATE Pain (Scale 4,5,6) & Pre PT Stop: 08/07/21 17:40 Hydromorphone HCl (Hydromorphone Inj 1 Mg/Ml Syringe) 1 mg IV Q3H PRN PRN Reason: SEVERE Pain (Scale 7,8,9,10) Stop: 08/07/21 17:40 Hydroxyzine HCl (Hydroxyzine Hcl 25 Mg Tab) 25 mg PO Q8H PRN PRN Reason: Anxiety Stop: 08/23/21 17:40 Promethazine HCl 12.5 mg/ (Sodium Chloride) 50.5 mls @ 202 mls/hr IV Q6H PRN PRN Reason: Nausea &/or Vomiting Stop: 08/23/21 17:40 Influenza Virus Vaccine Quadrival (Do Not Administer Flu Vaccine) 1 ea N/A PRN PRN PRN Reason: Notification Stop: 08/23/21 17:40 Levothyroxine Sodium (Levothyroxine Sodium 125 Mcg Tablet) 125 mcg PO DAILYBB [facility] Stop: 08/24/21 06:29 Last Admin: 07/28/21 05:16 Dose: 125 mcg Documented by: Lisinopril (Lisinopril 5 Mg Tab) 5 mg PO QAM [facility] Stop: 08/24/21 08:59 Last Admin: 07/28/21 08:04 Dose: 5 mg Documented by: Lorazepam (Lorazepam 0.5 Mg Tab) 0.5 mg PO Q8H PRN PRN Reason: Sedation/Anxiety Stop: 08/23/21 17:40 Lorazepam (Lorazepam 2 Mg/1 Ml Vial) 0.5 mg IV Q8H PRN PRN Reason: Sedation/Anxiety Stop: 08/23/21 17:40 Magnesium Hydroxide (Magnesium Hydroxide Susp 30 Ml Udc) 30 ml PO Q24H PRN PRN Reason: Constipation Stop: 08/23/21 17:40 Last Admin: 07/27/21 21:38 Dose: 30 ml Documented by: Metoclopramide HCl (Metoclopramide Hcl Inj 5 Mg/Ml 2 Ml Vial) 10 mg IV Q6H PRN PRN Reason: Nausea &/or Vomiting Stop: 08/23/21 17:40 Miscellaneous (Trospium - Order Awaiting Action) 1 ea N/A QS JACKELINE Stop: 08/24/21 00:00 Last Admin: 07/28/21 16:08 Dose: Not Given Documented by: Montelukast Sodium (Montelukast Sodium 10 Mg Tablet) 10 mg PO QPM JACKELINE Stop: 08/23/21 20:59 Last Admin: 07/27/21 20:17 Dose: 10 mg Documented by: Naloxone HCl (Naloxone Hcl 0.4 Mg/1 Ml Vial/Carp) 0.1 mg IV Q5M PRN PRN Reason: Oversedation/Resp depression Stop: 08/23/21 17:40 Ondansetron HCl (Ondansetron Inj 2 Mg/Ml 2 Ml Vial) 4 mg IV Q6H PRN PRN Reason: Nausea &/or Vomiting Stop: 08/23/21 17:40 Ondansetron HCl (Ondansetron 4 Mg Od Tab) 4 mg PO Q6H PRN PRN Reason: Nausea Stop: 08/23/21 17:40 Last Admin: 07/28/21 10:13 Dose: 4 mg Documented by: Oxycodone HCl (Oxycodone Hcl Ir 5 Mg Tab (Immediate Release)) 5 - 10 mg PO Q4H PRN PRN Reason: Pain & Pre PT Stop: 08/07/21 17:40 Last Admin: 07/27/21 16:45 Dose: 10 mg Documented by: Pneumococcal Polyvalent Vaccine (Do Not Administer Pneumococcal Vaccine) 1 ea N/A PRN PRN PRN Reason: Notification Stop: 08/23/21 17:40 Polyethylene Glycol (Polyethylene (Miralax) 17 Gm Pack) 17 gm PO Q6 JACKELINE Stop: 08/24/21 05:59 Last Admin: 07/28/21 14:16 Dose: 17 gm Documented by: Rizatriptan Benzoate (Rizatriptan Benzoate 10 Mg Tab) 10 mg PO UD PRN PRN Reason: Migraine Headache Stop: 08/23/21 17:40 Senna/Docusate Sodium (Docusate Sodium/Senna 50/8.6mg Tab) 2 tab PO HS JACKELINE Stop: 08/23/21 20:59 Last Admin: 07/27/21 20:17 Dose: 2 tab Documented by: Sertraline HCl (Sertraline Hcl 50 Mg Tablet) 50 mg PO QAM JACKELINE Stop: 08/24/21 08:59 Last Admin: 07/28/21 08:04 Dose: 50 mg Documented by: Sodium Biphosphate/Sodium Phosphate (Sod Phosphate/Sod Biphosphate Enema 132 Ml Btl) 132 ml OH ONE PRN PRN Reason: Constipation Stop: 08/23/21 17:40 Tramadol HCl (Tramadol Hcl 50 Mg Tablet) 50 - 100 mg PO Q4H PRN PRN Reason: Moderate-Severe pain & Pre PT Stop: 08/23/21 17:40 Umeclidinium Locke (Umeclidinium Locke 62.5mcg/Blister 7 Puffs/Inhaler) 1 puffs INH DAILY JACKELINE; Protocol Stop: 08/24/21 08:59 Last Admin: 07/28/21 08:03 Dose: 1 puffs Documented by:
[2021-07-28] MEDS: MONTELUKAST SODIUM 10 MG TABLET PO SCH (21:33)
[2021-07-28] MEDS: DOCUSATE SODIUM/SENNA 50/8.6MG TAB PO SCH (21:33)
[2021-07-28] MEDS: oxyCODONE HCL IR 5 MG TAB (IMMEDIATE RELEASE) PO PRN (21:33)
[2021-07-28] MEDS: ATORVASTATIN 40 MG TAB PO SCH (21:33)
[2021-07-29] MEDS: oxyCODONE HCL IR 5 MG TAB (IMMEDIATE RELEASE) PO PRN (03:23)
[2021-07-29] MEDS: POLYETHYLENE (MIRALAX) 17 GM PACK PO SCH ×2 (05:13→13:19)
[2021-07-29] MEDS: LEVOTHYROXINE SODIUM 125 MCG TABLET PO SCH (05:14)
[2021-07-29] MEDS: GABAPENTIN 100 MG CAP PO SCH (07:29)
[2021-07-29] MEDS: SERTRALINE HCL 50 MG TABLET PO SCH (07:30)
[2021-07-29] MEDS: [UNRECOGNIZED DRUG - REMARK] SCH (07:30)
[2021-07-29] MEDS: lisinopril 5 MG TAB PO SCH (07:30)
[2021-07-29] MEDS: FLUTICASONE/VILANTEROL 200/25MCG 14 PUFFS/INHALER INH SCH (07:30)
[2021-07-29] MEDS: UMECLIDINIUM BROMIDE 62.5MCG/BLISTER 7 PUFFS/INHALER INH SCH (07:30)
--- NOTE | 2021-07-29 10:13 | Hospitalist Progress Note ---
Date of Service July 29, 2021 Assessment & Plan (1) Neurogenic claudication due to lumbar spinal stenosis: Plan: S/p lumbar decompression POD #5 Pain management as per Ortho-narcotics now have been discontinued as an option with current side effects being reported. Continue PT/OT Plan for rehab, was hopeful for today but defer this to Ortho and patient. Bowel regimen for constipation. Bisacodyl WI PRN Constipation has improved. (2) HTN (hypertension): Plan: Continue lisinopril 5 mg daily. 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 Jurado with neurology on 06/06/2021 as per consult note stable/at goal. (3) Diastolic dysfunction: Plan: Currently stable (4) AAA (abdominal aortic aneurysm): Plan: "Follows with [facility] for cardiology as an outpatient last echo was completed on 07/18/2020 that is available in the chart for review showing normal LVEF of 55 to 60%, no regional WMA, type I diastolic dysfunction moderate ascending aortic dilation measuring 4.8 cm in 2016 the ascending aorta measured 4.7 cm" as per consult note. f/u monitoring as outpatient. (5) HLD (hyperlipidemia): Plan: chronic, stable. Continue atorvastatin 40 mg daily (6) Diabetes mellitus, type II: Plan: chronic, diet controlled. Last A1c was 5.9 on 05/02/2021 (7) Hypothyroidism: Plan: chronic, stable, Continue levothyroxine 125 mcg daily (8) MARA (obstructive sleep apnea): Plan: Noncompliant on CPAP Per outpatient notes Not on oxygen qhs (9) DVT prophylaxis: Plan: SCDs Full Code Dispo-to [facility] when current symptoms improve and he feels better. No issue outside of that for discharge when ortho spine ok with this. Cheyenne Kilpatrick [facility] and Anticipated Discharge Date Admission Date: July 24, 2021 Subjective 80 yo M admitted for lumbar surgery Pt reports not feeling well today 2/2 lightheadedness. Was given two doses of 10mg oxycodone at 9p and 3a overnight Nurse reports patient appeared intoxicated and is better now Pain is controlled SLight nausea, no vomiting Denies chest pain, SOB Constipation has improved overnight. Review of Systems Review of Systems: All systems were reviewed and negative except as indicated above. Physical Exam Physical Exam: CONSTITUTIONAL: WNWD, vitals as above, generally well- appearing, NAD EYES: normal conjunctivae, no scleral icterus, ENT: external ear and nose normal, NECK: trachea midline, RESPIRATORY: clear to auscultation bilaterally, no crackles, rales or wheezes, normal respiratory effort CARDIOVASCULAR: regular rate and rhythm, S1 and 2 heard without murmurs, gallops or rubs, no JVD, no peripheral edema CHEST: inspection of chest was normal (+pacemaker, +port) GASTROINTESTINAL: soft, nontender, ND, no guarding MUSCULOSKELETAL: strength 5/5 throughout, except some foot drop noted on left foot. head is normocephalic and atraumatic, SKIN: warm and dry, NEUROLOGIC: CN 2-12 grossly intact, decreased sensation on left foot to level of ankle, normal cognition, normal speech, no tremor PSYCHIATRIC: alert cooperative and oriented to person, place and time. Results & Data Results & Data ([facility]) Vital Signs (Past 12 Hours) Vital Signs Temp Pulse Resp BP Pulse Ox 07/29/21 07:30 37.4 C 68 18 109/67 92 Medications Administered Current Inpatient Medications Acetaminophen (Acetaminophen 500 Mg Tab) 1,000 mg PO Q8H PRN PRN Reason: MILD Pain Scale 1,2,3 & Pre PT Stop: 08/23/21 17:40 Last Admin: 07/28/21 10:12 Dose: 1,000 mg Documented by: Al Hydrox/Mg Hydrox/Simethicone (Aluminum/Magnesium Susp 30 Ml Udc) 30 ml PO Q6H PRN PRN Reason: Dyspepsia Stop: 08/23/21 17:40 Albuterol (Albuterol Hfa 8 Gm Inhaler) 2 puffs INH Q4H PRN PRN Reason: Wheezing Stop: 08/23/21 17:40 Atorvastatin Calcium (Atorvastatin 40 Mg Tab) 40 mg PO QPM JACKELINE Stop: 08/23/21 20:59 Last Admin: 07/28/21 21:33 Dose: 40 mg Documented by: Benzonatate (Benzonatate 100 Mg Capsule) 100 mg PO TID PRN PRN Reason: Cough Stop: 08/23/21 17:40 Bisacodyl (Bisacodyl 10 Mg Supp) 10 mg WI DAILY PRN PRN Reason: Constipation Stop: 08/23/21 17:40 Last Admin: 07/27/21 12:54 Dose: 10 mg Documented by: Famotidine (Famotidine 20 Mg Tab) 20 mg PO Q12H PRN PRN Reason: Dyspepsia Stop: 08/23/21 17:40 Fluticasone/Vilanterol (Fluticasone/Vilanterol 200/25mcg 14 Puffs/Inhaler) 1 puffs INH DAILY [facility]; Protocol Stop: 08/24/21 08:59 Last Admin: 07/29/21 07:30 Dose: 1 puffs Documented by: Gabapentin (Gabapentin 100 Mg Cap) [facility] [place]: 08/24/21 08:59 Last Admin: 07/29/21 07:29 Dose: 200 mg Documented by: Hydroxyzine HCl (Hydroxyzine Hcl 25 Mg Tab) 25 mg PO Q8H PRN PRN Reason: Anxiety Stop: 08/23/21 17:40 Last Admin: 07/28/21 22:02 Dose: 25 mg Documented by: Promethazine HCl 12.5 mg/ (Sodium Chloride) 50.5 mls @ 202 mls/hr IV Q6H PRN PRN Reason: Nausea &/or Vomiting Stop: 08/23/21 17:40 Influenza Virus Vaccine Quadrival (Do Not Administer Flu Vaccine) 1 ea N/A PRN PRN PRN Reason: Notification Stop: 08/23/21 17:40 Levothyroxine Sodium (Levothyroxine Sodium 125 Mcg Tablet) [facility] Stop: 08/24/21 06:29 Last Admin: 07/29/21 05:14 Dose: 125 mcg Documented by: Lisinopril (Lisinopril 5 Mg Tab) 5 mg PO QAM [facility] Stop: 08/24/21 08:59 Last Admin: 07/29/21 07:30 Dose: 5 mg Documented by: Magnesium Hydroxide (Magnesium Hydroxide Susp 30 Ml Udc) 30 ml PO Q24H PRN PRN Reason: Constipation Stop: 08/23/21 17:40 Last Admin: 07/27/21 21:38 Dose: 30 ml Documented by: Metoclopramide HCl (Metoclopramide Hcl Inj 5 Mg/Ml 2 Ml Vial) 10 mg IV Q6H PRN PRN Reason: Nausea &/or Vomiting Stop: 08/23/21 17:40 Miscellaneous (Trospium - Order Awaiting Action) 1 ea N/A QS [facility] Stop: 08/24/21 00:00 Last Admin: 07/29/21 07:30 Dose: Not Given Documented by: Montelukast Sodium (Montelukast Sodium 10 Mg Tablet) 10 mg PO QPM JACKELINE Stop: 08/23/21 20:59 Last Admin: 07/28/21 21:33 Dose: 10 mg Documented by: Naloxone HCl (Naloxone Hcl 0.4 Mg/1 Ml Vial/Carp) 0.1 mg IV Q5M PRN PRN Reason: Oversedation/Resp depression Stop: 08/23/21 17:40 Ondansetron HCl (Ondansetron Inj 2 Mg/Ml 2 Ml Vial) 4 mg IV Q6H PRN PRN Reason: Nausea &/or Vomiting Stop: 08/23/21 17:40 Ondansetron HCl (Ondansetron 4 Mg Od Tab) 4 mg PO Q6H PRN PRN Reason: Nausea Stop: 08/23/21 17:40 Last Admin: 07/28/21 10:13 Dose: 4 mg Documented by: Pneumococcal Polyvalent Vaccine (Do Not Administer Pneumococcal Vaccine) 1 ea N/A PRN PRN PRN Reason: Notification Stop: 08/23/21 17:40 Polyethylene Glycol (Polyethylene (Miralax) 17 Gm Pack) 17 gm PO Q6 [facility] Stop: 08/24/21 05:59 Last Admin: 07/29/21 05:13 Dose: Not Given Documented by: Rizatriptan Benzoate (Rizatriptan Benzoate 10 Mg Tab) 10 mg PO UD PRN PRN Reason: Migraine Headache Stop: 08/23/21 17:40 Senna/Docusate Sodium (Docusate Sodium/Senna 50/8.6mg Tab) 2 tab PO HS [facility] Stop: 08/23/21 20:59 Last Admin: 07/28/21 21:33 Dose: 2 tab Documented by: Sertraline HCl (Sertraline Hcl 50 Mg Tablet) 50 mg PO QAM [facility] Stop: 08/24/21 08:59 Last Admin: 07/29/21 07:30 Dose: 50 mg Documented by: Sodium Biphosphate/Sodium Phosphate (Sod Phosphate/Sod Biphosphate Enema 132 Ml Btl) 132 ml WI ONE PRN PRN Reason: Constipation Stop: 08/23/21 17:40 Tramadol HCl (Tramadol Hcl 50 Mg Tablet) 50 - 100 mg PO Q4H PRN PRN Reason: Moderate-Severe pain & Pre PT Stop: 08/23/21 17:40 Umeclidinium Davilla (Umeclidinium Davilla 62.5mcg/Blister 7 Puffs/Inhaler) 1 puffs INH DAILY [facility]; Protocol Stop: 08/24/21 08:59 Last Admin: 07/29/21 07:30 Dose: 1 puffs Documented by:
--- NOTE | 2021-07-29 11:53 | Discharge Summary ---
Date of Service July 29, 2021 Admission HPI Per Admitting Provider This is a 80-year-old male well-known to the [facility] emerged department status with advanced spinal stenosis and here for surgical intervention Principal Diagnosis Lumbar spinal stenosis with neurogenic claudication Discharge Data Allergies Allergy/AdvReac Type Severity Reaction Status Date / Time tramadol AdvReac Intermediate double Verified 07/24/21 10:18 vision Consultations 07/24/21 17:41 Consult Hospitalist Routine Procedures Performed Operation Date: 06/15/21 09:10 <No data on this case meets the specified criteria> Operation Date: 07/24/21 11:25 Actual Procedures p L2-L3 Decompression and Fusion, L3 S1 Revision Fusion; Spinal Cord Monitoring(Not Applicable) - Salvador Duckworth DO Ordered Studies 07/24/21 11:25 FL lumbar spine 2-3V Routine Hospital Course (1) Neurogenic claudication due to lumbar spinal stenosis: Patient underwent multilevel lumbar decompression fusion tolerated this well was taken to orthopedic for postop labor postop day 1 he was up and ambulating progressed throughout the week. Did struggle with obstipation for several days this was resolved on Friday through Friday. Is to continue to progress through therapy and extra strength testing was subsequently discharged to rehab. Discharge orders instructions from the chart for further review. Total Time Total Time Spent Total Time Spent (In Minutes): 20 minutes Discharge Plan Discharge Items Patient Disposition: Transfer Inpatient Rehab Fac Reason For Visit: Spinal Stenosis, Lumbar Region with Neurogenic Cla Discharge Diagnosis: Lumbar spinal stenosis with neurogenic claudication Activity: As commented below Non-emergency contact: Primary Care Provider Call non-emergency contact if: you have any medication questions Follow-up/Referrals: Norma Serna MD [Primary Care Provider] - Diet: Regular Addtl Attending Provider Instructions: ACTIVITY RECOMMENDATIONS: SELF CARE INSTRUCTIONS AFTER THORACIC/LUMBAR FUSIONS 1. You may walk to your tolerance. It is good exercise for your legs and back. Expect some back and intermittent leg aches and pains. 2. You may perform "counter-top" level activities (make a sandwich, lexi with a project, etc.). 3. No bending or lifting of more than 10 pounds or back twisting of any nature (roll like a log when turning in bed). 4. You may ride in a car for 20-30 minutes at a time. No driving until after your first visit with your doctor. 5. Frequent changes of position and restricting sitting to 30 minutes at a time will help limit the amount of back spasms and stiffness you may experience. 6. You may discontinue the use of ambulatory aids (cane, crutches, etc.) once your strength and confidence allow. 7. You may income tax administrator the shower and let water strike your incision when you arrive home at least once daily. Do not take a tub bath, sit in a hot tub or go into a swimming pool until after your first recheck in the office. SPECIAL CARE INSTRUCTIONS: VERY IMPORTANT TO READ AND REVIEW A. Your surgical incision has been closed with a cosmetic suture under the skin that will dissolve in about 6 weeks. In 14 days, you can use a pair of clean scissors and cut the suture that is left outside of the skin at the ends of your incision. 1. The small skin tapes can be removed 7 days after surgery if they have not fallen off by that point. 2. You may keep the wound open to air as much as possible to promote healing after post-op day number 5 unless told otherwise by your doctor. 3. If you think the wound looks like it is becoming infected (redness or worsening drainage) and/or you are experiencing fever, chill or worsening back pain and muscle spasms, contact the office so that we may evaluate you as soon as possible. B. Complications are uncommon, but please contact us if you have any signs or symptoms of: 1. wound infection (fever higher than 102.5 degrees F, redness, separation of wound, drainage, or increasing pain from the incision) 2. blood clots in legs (pain, swelling, redness and warmth in legs) 3. urinary tract infection (fever higher than 102.5 degrees F, burning upon urination or increased frequency of urination) 4. nerve problems (inability to walk on your toes or heels, numbness, loss of bowel or bladder control) 5. any other symptoms that concern you C. Please call the office at if you have any concerns or questions about your operation or recovery. D. No smoking! Smoking drastically decreases the chance of a solid fusion. E. Do not take any anti-inflammatory medications (Indocin, Advil, Motrin, Aspirin, Naprosyn, etc.) as these may inhibit the chance of a solid fusion. Tylenol is okay to take for pain. MANAGING PAIN AFTER SPINAL SURGERY 1. Narcotic medication is intended for short-term use and will be provided for surgical pain. Surgical pain usually lasts for a period of 4-6 weeks. Narcotic medication includes Percocet, Vicodin, Darvocet, Tylenol #3 or Lortab. 2. Longer-term pain is more appropriately treated with non-narcotic medication such as Tylenol ES. 3. Muscle spasm is not appropriately treated with narcotics. Muscle relaxers such as Soma, Flexeril or Skelaxin can be used along with Tylenol ES. 4. Remember that we all live with some "aches and pains". This is not unusual or uncommon after an injury or as we get older. a. Back pain is expected and may include muscle spasms for 4 to 6 weeks after surgery. The pain should gradually improve. If the pain worsens for no apparent reason, please contact the office. b. Intermittent leg pain may also be experienced and should not be concerned about unless it worsens for no apparent reason. If so, please contact the office. 5. We will provide appropriate medication within the normal guidelines of their prescribed use. We will also be very cautious and aware of potential abuse and extended duration of patients' medication needs. a. Pain medications are for your comfort and to assist with sleep and rest so that the tissue can heal. They are not provided in order to return to normal activity and should not be used through the day. To do so or worsening pain at night can result from ongoing tissue damage and development of tolerance to the prescribed medicine. 6. Please allow 2-3 days to process refills. Prescriptions will not be mailed but must be picked up at the office. FOLLOW UP VISIT: Keep your scheduled follow-up appointment. Any questions, please call the office at . Pending Studies at Discharge: No Stand-Alone Forms: [employer], Smoking Cessation Skilled Items Patient informed of condition?: Yes DNR: No Discharge Level of Care: Acute rehab Communicable Disease: No Discharge Prognosis: Improving Lines: None Urinary Catheter: No Medications and DC Order Prescriptions: New oxycodone 5 mg tablet 5 mg PO Q6H PRN (Reason: pain, severe) Qty: 30 RF: 0 tramadol 50 mg tablet 50 mg PO Q6H PRN (Reason: pain, moderate) Qty: 30 RF: 0 Continued rizatriptan [Maxalt] 10 mg Tablet 10 mg PO DIRECTED PRN (Reason: Migraine Headache) RF: 0 lisinopril 5 mg Tablet 5 mg PO QAM RF: 0 melatonin 5 mg Tablet 5 mg PO HS PRN (Reason: Sleep) RF: 0 atorvastatin 40 mg Tablet 40 mg PO QPM RF: 0 fluticasone propion-salmeterol [Advair Diskus] 250-50 mcg/dose Blister With Device 1 inh INHALATION BID RF: 0 montelukast [Singulair] 10 mg Tablet 10 mg PO QPM RF: 0 albuterol sulfate [Ventolin HFA] 90 mcg/actuation Hfa Aerosol Inhaler 2 puff INHALATION Q4H PRN (Reason: Wheezing) RF: 0 sertraline 50 mg tablet 50 mg PO QAM RF: 0 benzonatate 100 mg capsule 100 mg PO TID PRN (Reason: Cough) RF: 0 Spiriva Respimat 2.5 mcg/actuation mist 2 puff INHALATION BID RF: 0 trospium 20 mg Tablet 20 mg PO BID RF: 0 gabapentin 100 mg capsule 200 mg PO QAM RF: 0 levothyroxine [Synthroid] 125 mcg Tablet 125 mcg PO DAILYBB 30 Days Qty: 30 RF: 2 Discharge Orders: Discharge Order (Routine); Ordered 07/29/21 Ordered By: Salvador Duckworth Admission Data Admit Date/Time: 07/24/21 15:04 Attending Provider: Salvador Duckworth Admit Provider: Salvador Duckworth Primary Care Provider: Norma Serna Other Providers: Cheyenne Kilpatrick ; [facility]
[2021-07-29] MEDS: ACETAMINOPHEN 500 MG TAB PO PRN (15:55)
== END 2021-07-29 16:04 | DRG 455 ==
LOC: ASU 09:49 → PACUINP 15:04 → 3W 17:38
DX: G47.33 Obstructive sleep apnea (adult) (pediatric); Z68.32 Body mass index [BMI] 32.0-32.9, adult; N40.0 Benign prostatic hyperplasia without lower urinary tract symptoms; Z96.642 Presence of left artificial hip joint; Z85.46 Personal history of malignant neoplasm of prostate; E66.9 Obesity, unspecified; E78.5 Hyperlipidemia, unspecified; I71.4 Abdominal aortic aneurysm, without rupture; I25.10 Atherosclerotic heart disease of native coronary artery without angina pectoris; M48.062 Spinal stenosis, lumbar region with neurogenic claudication; F41.9 Anxiety disorder, unspecified; Z79.899 Other long term (current) drug therapy; F32.9 Major depressive disorder, single episode, unspecified; E03.9 Hypothyroidism, unspecified; Z92.3 Personal history of irradiation; J45.909 Unspecified asthma, uncomplicated; I10 Essential (primary) hypertension; Z88.5 Allergy status to narcotic agent; Z87.442 Personal history of urinary calculi; Z79.82 Long term (current) use of aspirin